=== PATIENT | female | born 1980 | race Two or more races ===

== ENCOUNTER 2024-09-01 09:07 | Outpatient (RCR) | payer MEDICAID, SELFPAY | END 2024-09-16 23:59 | disposition home or self-care (01) | LOC: SCTC 09:07 | PROVIDERS: PCP Obstetrics & Gynecology; Referring Provider Internal Medicine Hematology & Oncology; Visit Provider Internal Medicine Hematology & Oncology | DX: C19 Malignant neoplasm of rectosigmoid junction (principal); J98.4 Other disorders of lung; Z90.49 Acquired absence of other specified parts of digestive tract; K76.89 Other specified diseases of liver ==

== ENCOUNTER 2024-09-08 09:00 | Day surgery (SDC) | payer MEDICAID, SELFPAY ==
--- NOTE | 2024-09-04 07:00 | EKG_ITS ---
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
[2024-09-04 08:39] VITALS: BMI 30.1
[2024-09-04 10:37] LABS: Basophils # (Auto) 0.1 Thou/mm3 (0.0-0.2); Basophils % (Auto) 1 % (0-2.5); Eosinophils # (Auto) 0.2 Thou/mm3 (0.0-0.5); Eosinophils % (Auto) 3 % (0-10); Hematocrit 40.5 % (36.0-46.0); Hemoglobin 13.1 g/dL (12.0-16.0); Immature Granulocytes % (Auto) 0 % (0-0); Immature Granulocytes Auto 0.01 Thou/mm3 (0.00-0.00); Lymphocytes # (Auto) 1.2 Thou/mm3 (1.0-4.8); Lymphocytes % (Auto) 22 % (10-50); Mean Corpuscular HGB Conc 32.3 g/dl (31.0-37.0); Mean Corpuscular Hemoglobin 25.2 pg (25.0-35.0); Mean Corpuscular Volume 78 fL (80-100); Monocytes # (Auto) 0.4 Thou/mm3 (0.0-0.8); Monocytes % (Auto) 7 % (0-12); Neutrophils # (Auto) 3.6 Thou/mm3 (1.8-7.7); Neutrophils % (Auto) 67 % (37-80); Nucleated Red Blood Cell % 0 /100 WBC (0); Platelet Count 275 Thou/mm3 (140-440); RDW Standard Deviation 41.8 fL (36.4-46.3); Red Blood Count 5.19 Miln/mm3 (4.00-5.20); White Blood Count 5.3 Thou/mm3 (3.6-11.0)
[2024-09-04 10:45] LABS: Alanine Aminotransferase 22 U/L (10-49); Albumin/Globulin Ratio 1.7 (1.2-2.2); Alkaline Phosphatase 68 U/L (46-116); Anion Gap 7 (7-16); Aspartate Amino Transferase 19 U/L (0-34); BUN/Creatinine Ratio 19 Ratio (12-20); Bilirubin,Total 0.2 mg/dL (0.3-1.2); Blood Urea Nitrogen 13 mg/dL (9-23); Calcium 10.4 mg/dL (8.3-10.6); Calcium (Corrected) 10.4 mg/dL (8.5-10.1); Carbon Dioxide 27.7 mMol/L (20.0-31.0); Chloride 104 mMol/L (98-107); Creatinine (Component) 0.7 mg/dL (0.6-1.3); Glucose 112 mg/dL (74-106); Osmolality,Calculated 278 (275-295); Partial Thromboplastin Time 24.5 Seconds (22.0-36.0); Potassium 3.8 mMol/L (3.4-5.1); Prothrombin Time 10.6 Seconds (9.0-12.2); Sodium 139 mMol/L (136-145); eGFR > 60 See Note
[2024-09-04 11:05] LABS: HCG Qualitative,Urine Negative
[2024-09-08] VITALS (11 sets, daily range): BP systolic 107–132; BP diastolic 68–83; PULSE 79–93; RESP 13–20; TEMP 36.4–36.7; O2SAT 95–98; BMI 29.9
--- NOTE | 2024-09-08 10:11 | CHAP ---
Patient expressed gratitude for prayer before their procedure.
[2024-09-08] MEDS: RINGERS LACTATED 500 ML 500 ML 20 ML IV (10:22)
--- NOTE | 2024-09-08 12:00 | XR_ITS ---
Examination: AP chest single view Technique one AP portable supine chest single view Exam date and time: September 08, 2024 1225 hours INDICATIONS: Status post Port-A-Cath insertion FINDINGS: Right internal jugular Port-A-Cath tip SVC satisfactory position No pneumothorax Reduced inspiratory effort IMPRESSION: Right internal jugular Port-A-Cath line in satisfactory position
--- NOTE | 2024-09-08 14:22 | SUR.PHASEI ---
pt arrived to PACU via gurney with oral airway present, breathing unlabored, dressing to upper right and upper left chest clean, dry, and intact, report from Elaine LORENZO, Ken SIMMS, and Dr Shay
--- NOTE | 2024-09-08 14:42 | ESOP_ITS ---
Date of Procedure 09/08/24 Pre Op Diagnosis Stricture of veins requiring chemotherapy for metastatic colon cancer Post Op Diagnosis Same Procedure Insertion of a Port-A-Cath using the right jugular vein Findings Patient was found to have difficult subclavian vein access and I could not advance the catheter through the subclavian vein. Therefore it was done through the right jugular vein Procedure Description After the patient was brought to the operating room he was placed in supine position. Site-Rite ultrasound was used to identify the left subclavian vein and I chose this for insertion of the Port-A-Cath. After the patient's chest and neck were prepped with chloreprep solution and draped I used a mini stick to get into the left subclavian vein. Then I passed a small guidewire measuring 0.018 inch in diameter into the vein. Then this was switched over to a catheter to accommodate larger guidewire measuring 0.035 inches in diameter which was basically a J-wire. Then I used a 9 Irish valved vessel dilator over the guidewire which was then pulled out. At this time I could not introduce the dilator which bent awkwardly. The polyurethane catheter would not go into the vein. Therefore I switched to the right jugular vein and used the mini stick and got into the superior vena cava. This was confirmed with an x-ray. Then I introduced a 8 Irish polyurethane catheter from the [employer] and positioned it on the distal part of the superior vena cava. An x-ray was obtained to confirm the position of the tip. Then I made a small pocket 5 cm's below the entry site on the right chest below the clavicle to accommodate the port after injecting local anesthesia with 1% Xylocaine. Then I tunneled the polyurethane catheter from the entry site to this pocket in the chest wall and I connected it to regular sized port from [employer] called profuse using a catheter lock. Excellent blood return was obtained at the end of the procedure and this was flushed with heparinized saline. Then the port was attached to the chest wall muscle using 0 Vicryl sutures. Final x-ray showed satisfactory position of the catheter and port. Subcutaneous tissues was closed with 3-0 chromic and the skin by 5-0 nylon stitches. Dressing was applied with Adaptic and 4 x 4 and the patient tolerated the procedure well and left operating room in stable condition. Anesthesia GETA and other (General LMA) Pathology / specimen None Estimated Blood Loss 30 Surgeon Reema Lao MD Surgical Staff Operation Date: 09/08/24 11:45 Case Staff Anesthesiologist: Sesar Shay RN First Assistant: Shabnam Cuello
--- NOTE | 2024-09-08 15:05 | SUR.PHASEII ---
1505 Report received from Audrey Peters RN
--- NOTE | 2024-09-08 15:05 | SUR.PHASEII ---
report to Audrey Crain RN
--- NOTE | 2024-09-08 15:30 | SUR.PHASEII ---
1530 called patient son to notify patient ready for discharge, he stated he was at home and would arrive soon 1600 patient son arrived at hospital with proceed with discharge instructions.
--- NOTE | 2024-09-08 16:28 | SUR.PHASEII ---
1628 Patient meets discharge criteria from recovery, awake and alert, breathing unlabored, vital signs stable, denies pain, states It's painful only when I moved , dressing intact; no bleeding noted, patient ate two jellos and drinking 7up, denies nausea, patient assisted with dressing into her clothing by this jingle writer and her son, discharge instructions given to patient and her son with the assistance of the telephone blow up operator Penny ID#[id number], son signed discharge instructions. Patient given all her belongings prior to discharge, transported via wheelchair and left in a private vehicle.
== END 2024-09-08 16:28 | disposition home or self-care (01) ==
PROVIDERS: Anesthesiology; PCP Obstetrics & Gynecology; Referring Provider Surgery; Visit Provider Surgery
PROC: (CPT 36561; principal; 2024-09-08 11:30)
PROC: (CPT 44320; 2024-09-08 11:30)
DX: I87.1 Compression of vein (principal); C18.9 Malignant neoplasm of colon, unspecified; C78.7 Secondary malignant neoplasm of liver and intrahepatic bile duct; Z01.810 Encounter for preprocedural cardiovascular examination
CPT/HCPCS: 36561; 36415; 71046; 80053; 81025; 85025; 85610; 85730; 93005; A4649; C1788; C1894; J0131; J1643; J2250; J2371; J2704; J3010; J3490; J7120; J1644

== ENCOUNTER 2024-10-03 16:25 | Emergency (ER) | payer MEDICAID, SELFPAY ==
[2024-10-03 16:26] VITALS: BMI 30.7
[2024-10-03 16:51] VITALS: BP 117/78; PULSE 110; RESP 18; TEMP 37.8; O2SAT 97
--- NOTE | 2024-10-03 17:00 | PD.EDRME ---
Rapid Medical Screening Exam RME Arrival date/time: 10/03/24 16:25 44-year-old female presents emergency department today with complaints of sore throat and foreign body sensation in throat ongoing for last couple of hours patient currently on chemotherapy patient has low-grade temperature 100.0 Chief Complaint: Allergic Reaction Time Seen by Provider: 10/03/24 16:39 Vital signs: Vital Signs Temperature 100.0 F 10/03/24 16:51 Pulse Rate 110 H 10/03/24 16:51 Respiratory Rate 18 10/03/24 16:51 Blood Pressure 117/78 10/03/24 16:51 Pulse Oximetry (%) 97 10/03/24 16:51 Oxygen Delivery Method Room Air 10/03/24 16:51
--- NOTE | 2024-10-03 17:01 | XR_ITS ---
Examination: PA lateral chest 2 views Technique: Upright PA lateral chest 2 views Exam date and time: October 03, 2024 1714 hrs. Comparison September 08, 2024, PET CT scan July 06, 2024 Indications: Chest tightness today. Findings: Normal heart size 23 mm pulmonary nodule right upper lobe,, 12 mm pulmonary nodule right lower lobe, pulmonary nodules smaller in the left upper lobe, please see the PET/CT scan report No pneumonia or pulmonary edema Impression: Pulmonary nodular metastatic disease, please see the PET/CT scan July 06, 2024 No interval pneumonia or pulmonary edema
[2024-10-03 17:46] LABS: Strep A Rapid Negative (Negative)
[2024-10-03 17:54] LABS: Lactate (Lactic Acid) 2.9 mMol/L (0.4-2.0)
[2024-10-03 17:59] LABS: Basophils % (Auto) 0 % (0-2.5); Eosinophils % (Auto) 0 % (0-10); Hematocrit 39.4 % (36.0-46.0); Hemoglobin 12.7 g/dL (12.0-16.0); Immature Granulocytes % (Auto) 1 % (0-0); Immature Granulocytes Auto 0.03 Thou/mm3 (0.00-0.00); Lymphocytes # (Auto) 0.5 Thou/mm3 (1.0-4.8); Lymphocytes % (Auto) 9 % (10-50); Mean Corpuscular HGB Conc 32.2 g/dl (31.0-37.0); Mean Corpuscular Hemoglobin 24.8 pg (25.0-35.0); Mean Corpuscular Volume 77 fL (80-100); Monocytes # (Auto) 0.1 Thou/mm3 (0.0-0.8); Monocytes % (Auto) 2 % (0-12); Neutrophils # (Auto) 5.3 Thou/mm3 (1.8-7.7); Neutrophils % (Auto) 89 % (37-80); Nucleated Red Blood Cell % 0 /100 WBC (0); Platelet Count 253 Thou/mm3 (140-440); RDW Standard Deviation 41.4 fL (36.4-46.3); Red Blood Count 5.12 Miln/mm3 (4.00-5.20)
[2024-10-03 18:06] LABS: Collection Type, Urine Clean Catch
[2024-10-03 18:21] LABS: Bilirubin,Urine Negative (Negative); Blood,Urine Trace (Negative); Clarity,Urine Clear (Clear/Hazy); Color,Urine Colorless (Lt Yel-Yel); Glucose, Urine 3+ (Negative); Ketones,Urine Negative (Negative); Leukocyte Esterase,Urine Negative (Negative); Nitrite,Urine Negative (Negative); Protein,Urine Negative (Neg - Trace); RBC,Urine 1 /hpf (0-3); Specific Gravity,Urine 1.006 (1.001-1.035); Squamous Epithelial Cell,Urine 1 /hpf (0-5); Urobilinogen,Urine Negative mg/dL (0.0-1.0); WBC,Urine 1 /hpf (0-5)
[2024-10-03 18:31] LABS: Alanine Aminotransferase 26 U/L (10-49); Albumin, Serum 5.4 gm/dL (3.5-5.0); Albumin/Globulin Ratio 1.7 (1.2-2.2); Alkaline Phosphatase 99 U/L (46-116); Anion Gap 11 (7-16); Aspartate Amino Transferase 11 U/L (0-34); BUN/Creatinine Ratio 19 Ratio (12-20); Bilirubin,Total 0.3 mg/dL (0.3-1.2); Blood Urea Nitrogen 13 mg/dL (9-23); Calcium 10.3 mg/dL (8.3-10.6); Calcium (Corrected) 10.3 mg/dL (8.5-10.1); Carbon Dioxide 24.3 mMol/L (20.0-31.0); Chloride 101 mMol/L (98-107); Creatinine (Component) 0.7 mg/dL (0.6-1.3); Estimated Creatinine Clearance 107.9 mL/min (>60); Globulin 3.1 gm/dL (2.3-3.5); Glucose 215 mg/dL (74-106); Osmolality,Calculated 278 (275-295); Potassium 3.5 mMol/L (3.4-5.1); Sodium 136 mMol/L (136-145); Total Protein 8.5 gm/dL (5.7-8.2); eGFR > 60 See Note
[2024-10-03 18:35] LABS: Procalcitonin < 0.04 ng/ml (0.0-0.49)
[2024-10-03 19:45] VITALS: BP 111/74; PULSE 107; RESP 18; TEMP 36.9; O2SAT 97
[2024-10-03 20:10] VITALS: BP 123/80; PULSE 99; RESP 14; TEMP 37; O2SAT 98
[2024-10-03 20:51] LABS: Reflex Lactate? Y
[2024-10-03 21:16] LABS: Lactic Acid, 3 HR 2.4 mMol/L (0.4-2.0)
[2024-10-03 21:42] VITALS: BP 107/69; PULSE 98; RESP 20; O2SAT 99
--- NOTE | 2024-10-03 21:48 | PD.EDADULT ---
ED General RME/HPI General Chief complaint: Allergic Reaction Stated complaint: CHEMO TODAY NOW DIFF SWALLOWING Time Seen by Provider: 10/03/24 16:39 Arrival date/time: 10/03/24 16:25 CC: Foreign body sensation with swallowing after taking tablet HPI onset approximately 4 to 5 hours ago per the patient is a unable to swallow her own saliva and tolerates oral fluids. The patient not in any acute distress please note the patient recently started chemotherapy through a temporary anterior chest port for colon cancer with metastasis to the liver per the patient. Patient is a diabetic. Patient denies chest pain shortness of breath difficulty breathing or fever. RME / HPI RME / HPI narrative: 10/03/24 16:25 44-year-old female presents emergency department today with complaints of sore throat and foreign body sensation in throat ongoing for last couple of hours patient currently on chemotherapy patient has low-grade temperature 100.0 Related Data Home Medications ?Medication ?Instructions ?Recorded ?Confirmed metformin 500 mg tablet 500 mg PO BID 06/15/24 09/06/24 Allergies Allergy/AdvReac Type Severity Reaction Status Date / Time morphine Allergy Severe Anxiety Verified 10/03/24 16:31 prochlorperazine Allergy Severe ANXITEY Verified 10/03/24 16:31 Review of Systems Review of Systems Narrative Review of Systems: GEN: No fever, no chills, no weight loss EYES: No discharge, no visual changes, no pain HEENT: No ear pain, no congestion, no sore throat PULM: No shortness of breath, no cough, no congestion CV: No chest pain, no dyspnea on exertion, no palpitations GI: No nausea, no vomiting, no diarrhea, no pain, no constipation : No frequency, no urgency, no dysuria MUSC/SKEL: No joint pain, no back pain SKIN: No rash PSYCH: No hallucinations, no depression HEME/LYMPH: No easy bleeding or bruising tendencies NEURO: No weakness, no headache Past Medical History Past Medical History NEUROLOGIC: Positive Neurological Disorders and Seizures (x1 in 2003 with spinal after ); Negative Cerebrovascular Accident, Transient Ischemic Attacks (TIA), Dementia, Alzheimer's Disease, Parkinson's Disease, Brain Tumor, Meningitis, Epilepsy, Multiple Sclerosis, Cerebral Palsy, Amyotrophic Lateral Sclerosis (ALS/Cora Gehrig's), Guillain-[place] Syndrome, Spina Bifida, Paralysis, Peripheral Neuropathy, Akbar's Palsy, Subdural Hematoma, Migraine, Head Trauma, Spinal Cord Injury or Traumatic Brain Injury CARDIAC: Positive Cardiac Disorders and Varicose Veins; Negative Myocardial Infarction, Cardiac Arrhythmia, Atrial Fibrillation, Angina, Heart Murmur, Coronary Artery Disease, Atherosclerotic Heart Disease, Peripheral Vascular Disease, Hypercholesterolemia, Aneurysm, Congestive Heart Failure, Congenital Heart Disease, Valvular Heart Disease, Rheumatic Fever, Cardiomyopathy, Edema, Pericarditis, Cellulitis, Deep Vein Thrombosis, Hypertension or Hypotension RESPIRATORY: Negative Chronic Obstructive Pulmonary Disease (COPD), Asthma, Bronchitis, Emphysema, Pneumonia, Pulmonary Fibrosis, Cystic Fibrosis, Tuberculosis, Pulmonary Embolism, Pulmonary Edema or Sleep Apnea GASTROINTESTINAL: Positive Gastrointestinal Disorders (having a liver biopsy Wednesday) and Colorectal Cancer; Negative Hepatitis, Cirrhosis, Pancreatitis, Celiac Disease, Gall Bladder Disease, Gastrointestinal Bleed, Esophageal Varices, Evans's Esophagus, Colitis, Ulcerative Colitis, Diverticulitis, Diverticulosis, Ulcer, Irritable Bowel, Crohn's Disease, Obstructive Bowel, Hiatal Hernia, Hemorrhoids, Gastroesophageal Reflux Disease or Obesity GENITOURINARY: Negative Genitourinary Disorders, Renal Disease, Kidney Stones, Polycystic Kidney Disease, Neurogenic Bladder, Inguinal Hernia, Dialysis, Prostate Cancer or Benign Prostatic Hyperplasia REPRODUCTIVE: Positive Previous Pregnancies; Negative Breast Cancer, Endometriosis, Genital Herpes, Gonorrhea, Pelvic Inflammatory Disease, Syphilis, Testicular Cancer or Uterine Prolapse MUSCULOSKELETAL: Negative Musculoskeletal Disorders, Muscular Dystrophy, Myasthenia Gravis, Marfan's Syndrome, Bone Cancer, Arthritis, Rheumatoid Arthritis, Osteoporosis, Degenerative Disk Disease, Gout, Scoliosis, Carpal Tunnel Syndrome, Fibromyalgia, Fractures, Degenerative Joint Disease, Osteomyelitis or Poliovirus ENT: Negative Cataracts, Glaucoma, Blind, Retinal Detachment, Macular Degeneration, Ear Infection, Deafness, Head Trauma or Eye Prosthesis ENDOCRINE: Positive Endocrine Disorders and Diabetes Mellitus Type 2; Negative Diabetes Mellitus Type 1, Hypoglycemia, Tyro's Syndrome, Misha's Disease, Hyperthyroidism, Hypothyroidism, Parathyroid Disease, Pituitary Disease, Systemic Lupus Erythematosus, Syndrome of Inappropriate Antidiuretic Hormone (SIADH), Adrenal Disease or Graves' Disease HEMATOLOGIC: Positive Anemia; Negative Blood Disorders, Leukemia, Hemophilia, Thalassemia, Sickle Cell Disease or Clotting Problems PSYCHO/SOCIAL: Positive Depression (no meds) and Anxiety; Negative Psychiatric Problems, Schizophrenia, Recreational Drug Use, Bipolar Disorder, Behavior Problems, Self-Mutilation, Attention Deficit Disorder, Attention Deficit Hyperactivity Disorder, Depression, Post Traumatic Stress Disorder or Eating Disorder OTHER HISTORY: Positive Hospitalization (stomach issues), Anesthesia Reactions (had a seizure after spinal), Chemotherapy (COLON CANCER 2023), Radiation Therapy (COLON CANCER 2023), Chicken Pox, Measles, Mumps, Cancer and Colorectal Cancer; Negative Autoimmune Disease, Down Syndrome, Autism, Developmental Delay, Shingles, Falls, Blood Transfusions, Blood Transfusion Reaction, Organ Transplant, Hyperbaric Therapy, MRSA, VRSA, Vancomycin-Resistant Enterococci, Human Immunodeficiency Virus (HIV), Rubella ([place] Measles), Pertussis, Clostridium Difficile, Breast Cancer, Cervical Cancer, Lung Cancer (TO BE DETERMINED WITH BIOPSY), Ovarian Cancer, Prostate Cancer or Testicular Cancer Family History FAMILY HISTORY: Positive Family Cardiac Disorders (SISTER CABG), Family Gastrointestinal Problems (MOM COLON CANCER) and Family Cancer; Negative Family Psychiatric Problems, Family Respiratory Disorders, Family Surgery or Family Anesthesia Reaction Surgical History SURGICAL: Positive Abdominal Surgery, Bowel Surgery (colon resection with colostomy) and Section (X3); Negative Cardiac Surgery, Open Heart Surgery, Coronary Artery Bypass Graft, Valve Replacement, Vascular Surgery, Coronary Stent, Cardiac Catheterization, Pacemaker, Angiogram, Auto Implanted Cardiovert Defib, Carotid Endarterectomy, Endocrine Surgery, Thyroidectomy, Ear Surgery, Tympanostomy Tube, Eye Surgery, Nose Surgery, Oral Surgery, Tonsillectomy, Adenoidectomy, Cochlear Implant, Corneal Transplant, Throat Surgery, Tracheostomy, Gastric Bypass Surgery, Gastrostomy, Nephrectomy, Transurethral Resection, Joint Replacement, Amputation, Open Reduction Internal Fixation, Arthroscopy, Neurologic Surgery, Brain Shunt, Mastectomy, Lumpectomy, Hysterectomy, Tubal Ligation, Vasectomy or Organ Transplant Social History SMOKING STATUS: Never smoker SECOND HAND EXPOSURE: No ED Exam Narrative Physical exam: [General: Obese not in any acute distress Head normocephalic HEENT: Within acceptable limits Neck is supple nontender, no stridor, no JVD no edema. Normal phonation swallow symmetrical Chest equal chest rise nontender to palpation Respiratory: Clear to auscultation no wheezes crackles or rubs CV: Rate rhythm is regular no murmurs rubs or clicks Abdomen is distended secondary to body habitus soft nontender no masses positive bowel sounds all 4 quadrants Back: No CVA tenderness no spinous process tenderness from cervical spine thoracic and lumbar spine Skin: Intact no petechiae rash induration ulceration or crepitus Extremities: Moving all extremity against resistance cap refill less than 2 seconds neurosensory intact Neuro: Awake alert oriented x3 Glascow coma 15 no focal deficits] Course Course Course Narrative: Patient able to tolerate water both and sips and then gulps and is now tolerating food. Quality Measures VTE prophylaxis Orders Category Date Time Status Bedside COVID-19 Antigen Test NOW Care 10/03/24 17:01 Active Bedside Influenza A&B Antigen Test NOW Care 10/03/24 17:01 Completed EKG (ED ONLY) *Do not use* NOW Care 10/03/24 18:32 Completed EKG (ED Only) Stat Exams 10/03/24 18:32 Ordered XR chest 2V Stat Exams 10/03/24 17:01 Completed Blood Culture (Lab) Stat Lab 10/03/24 17:25 Received CBC Stat Lab 10/03/24 17:30 Completed Comprehensive Metabolic Panel Stat Lab 10/03/24 17:30 Completed Lactate (Lactic Acid) Stat Lab 10/03/24 17:30 Completed Lactic Acid, 3 HR Stat Lab 10/03/24 21:11 Completed Procalcitonin Stat Lab 10/03/24 17:30 Completed Strep A Rapid Stat Lab 10/03/24 17:29 Completed Urinalysis Stat Lab 10/03/24 17:55 Completed Urine Culture Stat Lab 10/03/24 17:55 Received Vital Signs Vital signs: Vital Signs Temperature 100.0 F 10/03/24 16:51 Pulse Rate 110 H 10/03/24 16:51 Respiratory Rate 18 10/03/24 16:51 Blood Pressure 117/78 10/03/24 16:51 Pulse Oximetry (%) 97 10/03/24 16:51 Oxygen Delivery Method Room Air 10/03/24 16:51 [facility] Patient data External records reviewed:: [facility] previous records Clinical information provided by:: patient Social determinants that could affect healthcare access:: none Patient has the following chronic illnesses:: Recently diagnosed colon cancer chemotherapy x 2 How is presenting disease/condition affected by chronic disease/condition?: uneffected by Evaluation data The following diagnostics were reviewed and interpreted by me:: lab results and radiology exam(s) Lab and/or radiology exams considered but not ordered:: CBC shows no acute leukocytosis anemia thrombocytopenia CMP shows mildly elevated glucose no other electrolyte imbalances renal impairment transaminitis or T. bili elevation EKG performed at 2139 shows a ventricular rate of 77 MT interval 135 QRS of 94 QTc of 421 this is sinus rhythm nonspecific ST segment changes. Initial lactic is 2.9 reflex lactic of 2.4 this was drawn before the patient was brought back to the emergency room bed. The patient's procalcitonin is negative. Urine is negative for any UTI. Interpretation Summary: Patient is tolerating foods without any complication at this time comfortable discharging the patient home lactic acid I think is metabolic as it is decreased without any specific intervention and the procalcitonin is normal. Patient has no shortness of breath difficulty breathing nausea vomiting vital signs are stable. Patient is a mildly elevated glucose level. Medications Medications considered but not ordered:: None Medication administrations:: None Consultations Consultation(s) initiated? (list below): No Diagnosis Differential Diagnosis ED Complaint MDM: Esophageal foreign body, sepsis, infection Most likely diagnosis given after review of the tests above:: Esophageal foreign body sensation Admission Indicated Admission indicated?: not indicated Explain why admission is indicated or not indicated:: Stable for outpatient follow-up Admission Request Was there a request for admission?: No Disposition Plan Disposition Plan: Discharge Discharge Attestation Discharge Attestation: The patient and all family members were given an opportunity to ask questions and understood the discharge instructions. Discharge instructions specifically effects, indications for sooner follow up or return to the emergency department, and the expected course of current diagnosis. Patient condition: Stable Medical Decision Making Differential Diagnosis Differential Diagnosis: Esophageal foreign body, sepsis, infection Lab Data 10/03/24 17:30 10/03/24 17:30 Labs: Lab Results 10/03/24 10/03/24 10/03/24 Range/Units 17:29 17:30 17:55 WBC 6.0 (3.6-11.0) Thou/mm3 RBC 5.12 (4.00-5.20) Miln/mm3 Hgb 12.7 (12.0-16.0) g/dL Hct 39.4 (36.0-46.0) % MCV 77 L (80-100) fL MCH 24.8 L (25.0-35.0) pg MCHC 32.2 (31.0-37.0) g/dl RDW Std Deviation 41.4 (36.4-46.3) fL Plt Count 253 (140-440) Thou/mm3 Neut % (Auto) 89 H (37-80) % Lymph % (Auto) 9 L (10-50) % [place] % (Auto) 2 (0-12) % Eos % (Auto) 0 (0-10) % Baso % (Auto) 0 (0-2.5) % Neut # (Auto) 5.3 (1.8-7.7) Thou/mm3 Lymph # (Auto) 0.5 L (1.0-4.8) Thou/mm3 [place] # (Auto) 0.1 (0.0-0.8) Thou/mm3 Eos # (Auto) 0.0 (0.0-0.5) Thou/mm3 Baso # (Auto) 0.0 (0.0-0.2) Thou/mm3 Immature Gran # (Auto) 0.03 H (0.00-0.00) Thou/mm3 Absolute Nucleated RBC 0.00 (0.00-0.00) Thou/mm3 Immature Gran % 1 H (0-0) % Nucleated RBC % 0 (0) /100 WBC Sodium 136 (136-145) mMol/L Potassium 3.5 (3.4-5.1) mMol/L Chloride 101 (98-107) mMol/L Carbon Dioxide 24.3 (20.0-31.0) mMol/L Anion Gap 11 (7-16) BUN 13 (9-23) mg/dL Creatinine 0.7 (0.6-1.3) mg/dL Estim Creat Clear Calc 107.9 (>60) mL/min eGFR > 60 (60 - ) See Note BUN/Creatinine Ratio 19 (12-20) Ratio Glucose 215 H D (74-106) mg/dL Calculated Osmolality 278 (275-295) Lactic Acid 2.9 H (0.4-2.0) mMol/L Calcium 10.3 (8.3-10.6) mg/dL Corrected Calcium 10.3 H (8.5-10.1) mg/dL Total Bilirubin 0.3 (0.3-1.2) mg/dL AST 11 (0-34) U/L ALT 26 (10-49) U/L Alkaline Phosphatase 99 (46-116) U/L Total Protein 8.5 H (5.7-8.2) gm/dL Albumin 5.4 H D (3.5-5.0) gm/dL Globulin 3.1 (2.3-3.5) gm/dL Albumin/Globulin Ratio 1.7 (1.2-2.2) Procalcitonin < 0.04 (0.0-0.49) ng/ml Ur Collection Type Clean Catch Urine Color Colorless A (Lt Yel-Yel) Urine Clarity Clear (Clear/Hazy) Urine pH 5.0 (5.0-7.0) Ur Specific [place] 1.006 (1.001-1.035) Urine Protein Negative (Neg - Trace) Urine Glucose (UA) 3+ A (Negative) Urine Ketones Negative (Negative) Urine Blood Trace (Negative) Urine Nitrite Negative (Negative) Urine Bilirubin Negative (Negative) Urine Urobilinogen (Auto) Negative (0.0-1.0) mg/dL Ur Leukocyte Esterase Negative (Negative) Urine RBC 1 (0-3) /hpf Urine WBC 1 (0-5) /hpf Ur Squamous Epith Cells 1 (0-5) /hpf Urine Bacteria None (None) Group A Strep Rapid Negative (Negative) 10/03/24 Range/Units 21:11 WBC (3.6-11.0) Thou/mm3 RBC (4.00-5.20) Miln/mm3 Hgb (12.0-16.0) g/dL Hct (36.0-46.0) % MCV (80-100) fL MCH (25.0-35.0) pg MCHC (31.0-37.0) g/dl RDW Std Deviation (36.4-46.3) fL Plt Count (140-440) Thou/mm3 Neut % (Auto) (37-80) % Lymph % (Auto) (10-50) % [place] % (Auto) (0-12) % Eos % (Auto) (0-10) % Baso % (Auto) (0-2.5) % Neut # (Auto) (1.8-7.7) Thou/mm3 Lymph # (Auto) (1.0-4.8) Thou/mm3 [place] # (Auto) (0.0-0.8) Thou/mm3 Eos # (Auto) (0.0-0.5) Thou/mm3 Baso # (Auto) (0.0-0.2) Thou/mm3 Immature Gran # (Auto) (0.00-0.00) Thou/mm3 Absolute Nucleated RBC (0.00-0.00) Thou/mm3 Immature Gran % (0-0) % Nucleated RBC % (0) /100 WBC Sodium (136-145) mMol/L Potassium (3.4-5.1) mMol/L Chloride (98-107) mMol/L Carbon Dioxide (20.0-31.0) mMol/L Anion Gap (7-16) BUN (9-23) mg/dL Creatinine (0.6-1.3) mg/dL Estim Creat Clear Calc (>60) mL/min eGFR (60 - ) See Note BUN/Creatinine Ratio (12-20) Ratio Glucose (74-106) mg/dL Calculated Osmolality (275-295) Lactic Acid 2.4 H (0.4-2.0) mMol/L Calcium (8.3-10.6) mg/dL Corrected Calcium (8.5-10.1) mg/dL Total Bilirubin (0.3-1.2) mg/dL AST (0-34) U/L ALT (10-49) U/L Alkaline Phosphatase (46-116) U/L Total Protein (5.7-8.2) gm/dL Albumin (3.5-5.0) gm/dL Globulin (2.3-3.5) gm/dL Albumin/Globulin Ratio (1.2-2.2) Procalcitonin (0.0-0.49) ng/ml Ur Collection Type Urine Color (Lt Yel-Yel) Urine Clarity (Clear/Hazy) Urine pH (5.0-7.0) Ur Specific [place] (1.001-1.035) Urine Protein (Neg - Trace) Urine Glucose (UA) (Negative) Urine Ketones (Negative) Urine Blood (Negative) Urine Nitrite (Negative) Urine Bilirubin (Negative) Urine Urobilinogen (Auto) (0.0-1.0) mg/dL Ur Leukocyte Esterase (Negative) Urine RBC (0-3) /hpf Urine WBC (0-5) /hpf Ur Squamous Epith Cells (0-5) /hpf Urine Bacteria (None) Group A Strep Rapid (Negative) Discharge Plan Plan Patient Disposition: HOME (Self Care) Prescriptions/Referrals Prescriptions/Med Rec: No Action metformin 500 mg Tablet 500 mg PO BID Referrals: Ron Moreno MD [Primary Care Provider] - In 1 week Problem List Clinical Impression: Sensation of foreign body in esophagus Patient/Caregiver Discharge Instructions Print Language: Greenlandic Stand Alone Forms: Cherrie Award Info., Patient Portal Info Letter, Work/School Release PA/EXECUTIVE STAFF ASSISTANT Supervising Physician PA/EXECUTIVE STAFF ASSISTANT Supervising Physician: Osmany Mora ENP
[2024-10-03 21:59] VITALS: BP 113/74; PULSE 92; RESP 17; TEMP 36.9; O2SAT 98
[2024-10-03 22:24] VITALS: BP 141/61; PULSE 112; RESP 16; O2SAT 95
== END 2024-10-03 22:25 | disposition home or self-care (01) ==
PROVIDERS: Nurse Practitioner Primary Care; Emergency Provider Emergency Medicine; PCP Obstetrics & Gynecology
DX: R19.8 Other specified symptoms and signs involving the digestive system and abdomen (principal); R07.89 Other chest pain; R00.0 Tachycardia, unspecified
CPT/HCPCS: 36415; 71046; 80053; 81001; 83605; 84145; 85025; 87040; 87086; 87400; 87651; 87811; 93005; 99283

== ENCOUNTER 2024-10-05 10:24 | Outpatient (RCR) | payer MEDICAID, SELFPAY ==
[2024-09-18 16:33] LABS: Basophils % (Auto) 1 % (0-2.5); Eosinophils # (Auto) 0.1 Thou/mm3 (0.0-0.5); Eosinophils % (Auto) 2 % (0-10); Hematocrit 37.3 % (36.0-46.0); Hemoglobin 12.2 g/dL (12.0-16.0); Immature Granulocytes % (Auto) 0 % (0-0); Immature Granulocytes Auto 0.01 Thou/mm3 (0.00-0.00); Lymphocytes # (Auto) 1.3 Thou/mm3 (1.0-4.8); Lymphocytes % (Auto) 21 % (10-50); Mean Corpuscular HGB Conc 32.7 g/dl (31.0-37.0); Mean Corpuscular Hemoglobin 25.4 pg (25.0-35.0); Mean Corpuscular Volume 78 fL (80-100); Monocytes # (Auto) 0.5 Thou/mm3 (0.0-0.8); Monocytes % (Auto) 9 % (0-12); Neutrophils % (Auto) 67 % (37-80); Nucleated Red Blood Cell % 0 /100 WBC (0); Platelet Count 285 Thou/mm3 (140-440); RDW Standard Deviation 42.2 fL (36.4-46.3)
[2024-09-18 16:55] LABS: HCG,Qualitative Serum Negative
[2024-09-18 16:58] LABS: Alanine Aminotransferase 19 U/L (10-49); Albumin, Serum 4.9 gm/dL (3.5-5.0); Albumin/Globulin Ratio 1.8 (1.2-2.2); Alkaline Phosphatase 64 U/L (46-116); Anion Gap 10 (7-16); Aspartate Amino Transferase 13 U/L (0-34); BUN/Creatinine Ratio 18 Ratio (12-20); Bilirubin,Total 0.3 mg/dL (0.3-1.2); Blood Urea Nitrogen 11 mg/dL (9-23); Calcium 10.2 mg/dL (8.3-10.6); Calcium (Corrected) 10.2 mg/dL (8.5-10.1); Carbon Dioxide 26.4 mMol/L (20.0-31.0); Chloride 100 mMol/L (98-107); Creatinine (Component) 0.6 mg/dL (0.6-1.3); Globulin 2.7 gm/dL (2.3-3.5); Glucose 96 mg/dL (74-106); Osmolality,Calculated 271 (275-295); Potassium 3.7 mMol/L (3.4-5.1); Sodium 136 mMol/L (136-145); Total Protein 7.6 gm/dL (5.7-8.2); eGFR > 60 See Note
--- NOTE | 2024-09-28 13:19 | CTCFLWUP_ITS ---
Patient: ALDO LIU : 1980 Page 2 of 2 FOLLOW UP NOTE DATE OF SERVICE: 09/28/2024 NAME: ALDO LIU ACCOUNT: [id number] : 1980 AGE: 43 REASON FOR VISIT: Patient is here for follow-up on her chemotherapy. Patient has completed cycle one of her chemothera py and doing well. Patient do not have any new complaints from treatment. She do not have any nause a vomiting or appetite changes. History of presenting illness Aldo Liu is a 44-year-old SPA speaking female with history of type 2 diabetes cu rrently on metformin without any secondary sequelae has the following oncology history. 11/02/2023: Ms. Liu had colonoscopy done for recurrent rectal bleeding, rectal pain and rec urrent diarrhea. 11/18/2023: CT scan of the chest abdomen with contrast was obtained 11/29/2023: CEA 7.8 12/24/2023: Ms. Liu had VistaSeq Dickinson Syndrome panel. 01/06/2024:: Due to pelvic pain, bleeding, obstructive symptoms Dr. Drake has decided to treat Ms. Leah larson with chemoradiation using Xeloda as a radiosensitizing agent. As per the notes chemo could not be started. 01/24/2024 - 02/25/2024: Ms. Liu has received 5000 cGy of radiation therapy to the pelvis und er Dr. Drake's supervision. 02/03/2024: PET/CT scan back 03/23/2024: CT scan of the chest without IV contrast 04/24/2024: Ms. Liu had resection of the distal sigmoid colon and sigmoid colostomy. At the time of surgery she was found to have a complete obstruction resulting large bowel obstruction. 06/21/2024: CT-guided percutaneous biopsy of the pulmonary nodule anterior segment right upper lobe PAST MEDICAL HISTORY: Adenocarcinoma rectosigmoid - dx 11/03/23 ONCOLOGY HISTORY: DIAGNOSIS: Most likely stage IV (pT2, pN 0, MX) adenocarcinoma of the sigmoid colon with multiple pulmonary lesi ons. MMR proficient. Dickinson syndrome panel testing negative S/p radiation therapy to the pelvis due to obstructive symptoms as well as bleeding (01/24/2024 - 2023) Status post sigmoid colectomy and colostomy bag placement on 04/24/2024. Mother had colon cancer in her 70s. 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 ZOFRAN ODT - 8 mg 1 tab As directed Medications Last Reconciled by Aldo Martinez MA on 09/28/2024 ALLERGIES: Compazine; Compazine; morphine REVIEW OF SYSTEMS: A complete 14-point review of systems was performed and is negative except as noted in interval histo ry. PHYSICAL EXAMINATION: VITAL SIGNS: Temperature?98, B/P?125/81, Oxygen?Saturation?100% Weight?178?lbs (Change?since?09/21/24: ?-3.6?lbs) PAIN: 0 - No pain EYE: Conjunctivae is pink. MOUTH: Oral cavity is dry. CHEST: Clear to auscultation. No wheezes or rales audible. CARDIAC: Rhythm regular, no murmurs or gallops present. ABDOMEN: Soft. No hepatomegaly. No splenomegaly. Colostomy bag in place functioning well EXTREMITIES: No pedal edema or cyanosis. LABORATORY DATA: I have personally reviewed and interpreted each of the patient?s relevant lab tests, abnormal finding s are below: Date 09/18/24 ??WHITE?BLOOD?COUNT?(Thou/mm3) 6.0 ??RED?BLOOD?COUNT?(Miln/mm3) 4.80 ??HEMOGLOBIN?(gm/dl) 12.2 ??HEMATOCRIT?(%) 37.3 ??PLATELET?COUNT?(Thou/mm3) 285 ??NEUTROPHILS?%,?AUTO?(%) 67 ??LYMPH?%,?AUTO?(%) 21 ??NEUTROPHILS,?AUTO?(Thou/mm3) 4.0 IMPRESSION/PLAN: Stage IV T2 N0 M1 adenocarcinoma of the sigmoid colon with multiple pulmonary nodules biopsy negative and liver lesion biopsy positive MMR proficient Dickinson syndrome negative S/p radiation to the pelvis due to obstructive symptom as well as bleeding from 01/24/2024 to 02/25/2024 Status post sigmoid colectomy and colostomy bag placement on 04/24/2024 Liver lesion was positive for colon cancer Patient is on chemotherapy with FOLFOX Completed cycle 1 Tolerating well CEA is 21 CBC CMP CEA PET CT scan to see response to treatment RETURN TO CLINIC: In 4 weeks BILLING AND COMPLIANCE: I reviewed external records from providers outside my specialty as summarized above. I spent a total of 50 minutes on this patient?s care on the day of their visit excluding time spent related to any bi lled procedures. This time includes time spent with the patient as well as time spent documenting in the medical record, reviewing patients records and tests, obtaining history, placing orders, communi cating with other healthcare professionals, counseling the patient, family or caregiver, and/or care coordination for the diagnoses above. Electronically Signed by: Helder Rodrigues MD T: 1:17 PM CC: PCP: Ron Moreno Referring: Ron Moreno This document was completed utilizing speech recognition software. Grammatical errors, random word in sertions, pronoun errors, and incomplete sentences are an occasional consequence of this system due t o software limitations, ambient noise, and hardware issues. Any formal questions or concerns about th e content, text or information contained within the body of this dictation should be directly address ed to the provider for clarification.
[2024-10-02 10:54] LABS: Basophils % (Auto) 0 % (0-2.5); Eosinophils # (Auto) 0.1 Thou/mm3 (0.0-0.5); Eosinophils % (Auto) 2 % (0-10); Hematocrit 37.3 % (36.0-46.0); Immature Granulocytes % (Auto) 0 % (0-0); Immature Granulocytes Auto 0.01 Thou/mm3 (0.00-0.00); Lymphocytes # (Auto) 1.1 Thou/mm3 (1.0-4.8); Lymphocytes % (Auto) 18 % (10-50); Mean Corpuscular HGB Conc 32.2 g/dl (31.0-37.0); Mean Corpuscular Hemoglobin 24.8 pg (25.0-35.0); Mean Corpuscular Volume 77 fL (80-100); Monocytes # (Auto) 0.6 Thou/mm3 (0.0-0.8); Monocytes % (Auto) 10 % (0-12); Neutrophils # (Auto) 4.2 Thou/mm3 (1.8-7.7); Neutrophils % (Auto) 70 % (37-80); Nucleated Red Blood Cell % 0 /100 WBC (0); Platelet Count 252 Thou/mm3 (140-440); RDW Standard Deviation 41.5 fL (36.4-46.3); Red Blood Count 4.83 Miln/mm3 (4.00-5.20)
[2024-10-02 11:10] LABS: Alanine Aminotransferase 23 U/L (10-49); Albumin, Serum 4.7 gm/dL (3.5-5.0); Albumin/Globulin Ratio 1.7 (1.2-2.2); Alkaline Phosphatase 84 U/L (46-116); Anion Gap 10 (7-16); Aspartate Amino Transferase 18 U/L (0-34); BUN/Creatinine Ratio 23 Ratio (12-20); Bilirubin,Total 0.3 mg/dL (0.3-1.2); Blood Urea Nitrogen 14 mg/dL (9-23); Calcium 10.4 mg/dL (8.3-10.6); Calcium (Corrected) 10.4 mg/dL (8.5-10.1); Carbon Dioxide 25.6 mMol/L (20.0-31.0); Chloride 103 mMol/L (98-107); Creatinine (Component) 0.6 mg/dL (0.6-1.3); Globulin 2.7 gm/dL (2.3-3.5); Glucose 115 mg/dL (74-106); Osmolality,Calculated 279 (275-295); Potassium 3.8 mMol/L (3.4-5.1); Sodium 139 mMol/L (136-145); Total Protein 7.4 gm/dL (5.7-8.2); eGFR > 60 See Note
[2024-10-02 11:13] LABS: Carcinoembryonic Antigen 22.3 ng/mL (0.0-5.0)
[2024-10-02 11:47] LABS: HCG,Qualitative Serum Negative
== END 2024-10-17 23:59 | disposition home or self-care (01) ==
LOC: SCTC 10:24
PROVIDERS: PCP Obstetrics & Gynecology; Referring Provider Obstetrics & Gynecology; Visit Provider Internal Medicine Hematology & Oncology
DX: Z51.11 Encounter for antineoplastic chemotherapy (principal); C18.7 Malignant neoplasm of sigmoid colon; C78.7 Secondary malignant neoplasm of liver and intrahepatic bile duct; R91.8 Other nonspecific abnormal finding of lung field; Z92.3 Personal history of irradiation
CPT/HCPCS: 36591; 80053; 82378; 84703; 85025; 96366; 96367; 96368; 96411; 96413; 96415; 96416; 96417; 99213; A4216; J0640; J1100; J1453; J1642; J2405; J9190; J9263; G0463

== ENCOUNTER 2024-11-10 08:27 | Outpatient (RCR) | payer MEDICAID, SELFPAY ==
[2024-10-27 10:28] LABS: Basophils % (Auto) 0 % (0-2.5); Eosinophils # (Auto) 0.1 Thou/mm3 (0.0-0.5); Eosinophils % (Auto) 1 % (0-10); Hematocrit 34.9 % (36.0-46.0); Hemoglobin 11.4 g/dL (12.0-16.0); Immature Granulocytes % (Auto) 0 % (0-0); Immature Granulocytes Auto 0.04 Thou/mm3 (0.00-0.00); Lymphocytes # (Auto) 1.3 Thou/mm3 (1.0-4.8); Lymphocytes % (Auto) 14 % (10-50); Mean Corpuscular HGB Conc 32.7 g/dl (31.0-37.0); Mean Corpuscular Hemoglobin 25.6 pg (25.0-35.0); Mean Corpuscular Volume 78 fL (80-100); Monocytes % (Auto) 10 % (0-12); Neutrophils # (Auto) 7.1 Thou/mm3 (1.8-7.7); Neutrophils % (Auto) 75 % (37-80); Nucleated Red Blood Cell % 0 /100 WBC (0); Platelet Count 265 Thou/mm3 (140-440); RDW Standard Deviation 44.9 fL (36.4-46.3); Red Blood Count 4.46 Miln/mm3 (4.00-5.20); White Blood Count 9.5 Thou/mm3 (3.6-11.0)
[2024-10-27 10:48] LABS: Carcinoembryonic Antigen 6.7 ng/mL (0.0-5.0)
[2024-10-27 11:02] LABS: Alanine Aminotransferase 18 U/L (10-49); Albumin, Serum 4.7 gm/dL (3.5-5.0); Albumin/Globulin Ratio 1.7 (1.2-2.2); Alkaline Phosphatase 72 U/L (46-116); Anion Gap 10 (7-16); BUN/Creatinine Ratio 18 Ratio (12-20); Bilirubin,Total 0.4 mg/dL (0.3-1.2); Blood Urea Nitrogen 11 mg/dL (9-23); Calcium 9.8 mg/dL (8.3-10.6); Calcium (Corrected) 9.8 mg/dL (8.5-10.1); Carbon Dioxide 27.5 mMol/L (20.0-31.0); Chloride 102 mMol/L (98-107); Creatinine (Component) 0.6 mg/dL (0.6-1.3); Globulin 2.8 gm/dL (2.3-3.5); Glucose 112 mg/dL (74-106); Osmolality,Calculated 277 (275-295); Potassium 3.8 mMol/L (3.4-5.1); Sodium 139 mMol/L (136-145); Total Protein 7.5 gm/dL (5.7-8.2); eGFR > 60 See Note
[2024-10-27 11:11] LABS: Aspartate Amino Transferase 12 U/L (0-34)
[2024-10-30 09:25] LABS: Basophils # (Auto) 0.1 Thou/mm3 (0.0-0.2); Basophils % (Auto) 0 % (0-2.5); Eosinophils % (Auto) 0 % (0-10); Hematocrit 32.4 % (36.0-46.0); Hemoglobin 10.8 g/dL (12.0-16.0); Immature Granulocytes % (Auto) 0 % (0-0); Immature Granulocytes Auto 0.07 Thou/mm3 (0.00-0.00); Lymphocytes # (Auto) 0.4 Thou/mm3 (1.0-4.8); Lymphocytes % (Auto) 2 % (10-50); Mean Corpuscular HGB Conc 33.3 g/dl (31.0-37.0); Mean Corpuscular Hemoglobin 25.8 pg (25.0-35.0); Mean Corpuscular Volume 78 fL (80-100); Monocytes # (Auto) 0.8 Thou/mm3 (0.0-0.8); Monocytes % (Auto) 5 % (0-12); Neutrophils # (Auto) 16.3 Thou/mm3 (1.8-7.7); Neutrophils % (Auto) 92 % (37-80); Nucleated Red Blood Cell % 0 /100 WBC (0); Platelet Count 232 Thou/mm3 (140-440); RDW Standard Deviation 43.6 fL (36.4-46.3); Red Blood Count 4.18 Miln/mm3 (4.00-5.20); White Blood Count 17.7 Thou/mm3 (3.6-11.0)
[2024-10-30 09:42] LABS: Alanine Aminotransferase 16 U/L (10-49); Albumin, Serum 4.6 gm/dL (3.5-5.0); Albumin/Globulin Ratio 1.5 (1.2-2.2); Alkaline Phosphatase 69 U/L (46-116); Anion Gap 9 (7-16); Aspartate Amino Transferase 18 U/L (0-34); BUN/Creatinine Ratio 11 Ratio (12-20); Bilirubin,Total 0.5 mg/dL (0.3-1.2); Blood Urea Nitrogen 8 mg/dL (9-23); Calcium 9.6 mg/dL (8.3-10.6); Calcium (Corrected) 9.6 mg/dL (8.5-10.1); Carbon Dioxide 27.1 mMol/L (20.0-31.0); Chloride 98 mMol/L (98-107); Creatinine (Component) 0.7 mg/dL (0.6-1.3); Glucose 164 mg/dL (74-106); Osmolality,Calculated 270 (275-295); Potassium 3.2 mMol/L (3.4-5.1); Sodium 134 mMol/L (136-145); Total Protein 7.6 gm/dL (5.7-8.2); eGFR > 60 See Note
[2024-10-30 09:46] LABS: HCG,Qualitative Serum Negative
--- NOTE | 2024-11-02 13:35 | CTCFLWUP_ITS ---
Patient: ALDO CALDERON : 1980 Page 2 of 2 FOLLOW UP NOTE DATE OF SERVICE: 11/01/2024 NAME: ALDO CALDERON ACCOUNT: [id number] : 1980 AGE: 44 INTERVAL HISTORY: Patient says she is doing better now. She had no fever. 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 MMR proficient. Dickinson syndrome panel testing negative S/p radiation therapy to the pelvis due to obstructive symptoms as well as bleeding (01/24/2024 - 2023) Status post sigmoid colectomy and colostomy bag placement on 04/24/2024. Mother had colon cancer in her 70s. 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 Augmentin - 500-125 mg 1 tab twice Daily 2. ZOFRAN ODT - 8 mg 1 tab As directed Medications Last Reconciled by Jael Kraus MA on 11/01/2024 ALLERGIES: Compazine; Compazine; morphine REVIEW OF SYSTEMS: A complete 14-point review of systems was performed and is negative except as noted in interval histo ry. PHYSICAL EXAMINATION: VITAL SIGNS: Temperature?100.2, B/P?114/76, Oxygen?Saturation?99% Weight?177.6?lbs (Change?since?10/30:?0.2?lbs) PAIN: 2 - Mild pain ECOG Performance Status: 0 - Asymptomatic and fully active EYE: Conjunctivae is pink. MOUTH: Oral cavity is dry. CHEST: Clear to auscultation. No wheezes or rales audible. CARDIAC: Rhythm regular, no murmurs or gallops present. ABDOMEN: Soft. No hepatomegaly. No splenomegaly. Colostomy bag in place functioning well EXTREMITIES: No pedal edema or cyanosis. LABORATORY DATA: I have personally reviewed and interpreted each of the patient?s relevant lab tests, abnormal finding s are below: Date 10/30/24 ??WHITE?BLOOD?COUNT?(Thou/mm3) 17.7?H ??RED?BLOOD?COUNT?(Miln/mm3) 4.18 ??HEMOGLOBIN?(gm/dl) 10.8?L ??HEMATOCRIT?(%) 32.4?L ??PLATELET?COUNT?(Thou/mm3) 232 ??NEUTROPHILS?%,?AUTO?(%) 92?H ??LYMPH?%,?AUTO?(%) 2?L ??NEUTROPHILS,?AUTO?(Thou/mm3) 16.3?H ASSESSMENT/PLAN: Stage IV T2 N0 M1 adenocarcinoma of the sigmoid colon with multiple pulmonary nodules biopsy negative and liver lesion biopsy positive MMR proficient Dickinson syndrome negative S/p radiation to the pelvis due to obstructive symptom as well as bleeding from 01/24/2024 to 02/25/2024 Status post sigmoid colectomy and colostomy bag placement on 04/24/2024 Liver lesion was positive for colon cancer Patient is on chemotherapy with FOLFOX Completed cycle 1 Tolerating well CEA is 21 CBC CMP CEA PET CT scan to see response to treatment As patient's fever has subsided Advised to do prechemo check labs and okay to proceed with chemotherapy Patient to continue antibiotics for at least 7 days CBC CMP and okay to proceed with treatment RETURN TO CLINIC: 6 weeks BILLING AND COMPLIANCE: I reviewed external records from providers outside my specialty as summarized above. I spent a total of 50 minutes on this patient?s care on the day of their visit excluding time spent related to any bi lled procedures. This time includes time spent with the patient as well as time spent documenting in the medical record, reviewing patients records and tests, obtaining history, placing orders, communi cating with other healthcare professionals, counseling the patient, family or caregiver, and/or care coordination for the diagnoses above. Electronically Signed by: Helder Rodrigues MD T: 1:32 PM CC: PCP: Ron Moreno Referring: Ron Moreno This document was completed utilizing speech recognition software. Grammatical errors, random word in sertions, pronoun errors, and incomplete sentences are an occasional consequence of this system due t o software limitations, ambient noise, and hardware issues. Any formal questions or concerns about th e content, text or information contained within the body of this dictation should be directly address ed to the provider for clarification.
[2024-11-06 10:10] LABS: Basophils % (Auto) 0 % (0-2.5); Eosinophils % (Auto) 1 % (0-10); Hemoglobin 10.7 g/dL (12.0-16.0); Immature Granulocytes % (Auto) 2 % (0-0); Immature Granulocytes Auto 0.12 Thou/mm3 (0.00-0.00); Lymphocytes # (Auto) 0.9 Thou/mm3 (1.0-4.8); Lymphocytes % (Auto) 13 % (10-50); Mean Corpuscular HGB Conc 32.4 g/dl (31.0-37.0); Mean Corpuscular Hemoglobin 25.5 pg (25.0-35.0); Mean Corpuscular Volume 79 fL (80-100); Monocytes # (Auto) 0.5 Thou/mm3 (0.0-0.8); Monocytes % (Auto) 7 % (0-12); Neutrophils # (Auto) 5.3 Thou/mm3 (1.8-7.7); Neutrophils % (Auto) 77 % (37-80); Nucleated Red Blood Cell % 0 /100 WBC (0); Platelet Count 396 Thou/mm3 (140-440); RDW Standard Deviation 44.5 fL (36.4-46.3); Red Blood Count 4.19 Miln/mm3 (4.00-5.20); White Blood Count 6.9 Thou/mm3 (3.6-11.0)
[2024-11-06 10:33] LABS: Alanine Aminotransferase 20 U/L (10-49); Albumin, Serum 4.5 gm/dL (3.5-5.0); Albumin/Globulin Ratio 1.5 (1.2-2.2); Alkaline Phosphatase 61 U/L (46-116); Anion Gap 8 (7-16); Aspartate Amino Transferase 19 U/L (0-34); BUN/Creatinine Ratio 13 Ratio (12-20); Bilirubin,Total 0.3 mg/dL (0.3-1.2); Blood Urea Nitrogen 8 mg/dL (9-23); Calcium 10.1 mg/dL (8.3-10.6); Calcium (Corrected) 10.1 mg/dL (8.5-10.1); Carbon Dioxide 28.1 mMol/L (20.0-31.0); Chloride 103 mMol/L (98-107); Creatinine (Component) 0.6 mg/dL (0.6-1.3); Glucose 127 mg/dL (74-106); Osmolality,Calculated 277 (275-295); Potassium 3.6 mMol/L (3.4-5.1); Sodium 139 mMol/L (136-145); Total Protein 7.5 gm/dL (5.7-8.2); eGFR > 60 See Note
[2024-11-06 10:34] LABS: Carcinoembryonic Antigen 4.7 ng/mL (0.0-5.0)
[2024-11-06 10:38] LABS: HCG,Qualitative Serum Negative
== END 2024-11-17 23:59 | disposition home or self-care (01) ==
LOC: SCTC 08:27
PROVIDERS: PCP Obstetrics & Gynecology; Referring Provider Obstetrics & Gynecology; Visit Provider Internal Medicine Hematology & Oncology
DX: Z51.11 Encounter for antineoplastic chemotherapy (principal); C19 Malignant neoplasm of rectosigmoid junction; C78.7 Secondary malignant neoplasm of liver and intrahepatic bile duct; Z90.49 Acquired absence of other specified parts of digestive tract; R91.8 Other nonspecific abnormal finding of lung field
CPT/HCPCS: 36591; 80053; 82378; 84703; 85025; 96361; 96365; 96366; 96367; 96368; 96411; 96413; 96415; 96416; 99212; A4216; J0640; J1100; J1453; J1642; J2405; J7030; J7050; J9190; J9263; G0463

== ENCOUNTER 2024-11-11 10:04 | Emergency (ER) | payer MEDICAID, SELFPAY ==
[2024-11-11 10:05] VITALS: BMI 29.0
[2024-11-11 10:23] VITALS: BP 108/72; PULSE 82; RESP 18; TEMP 36.9; O2SAT 99
--- NOTE | 2024-11-11 10:53 | PD.EDRME ---
Rapid Medical Screening Exam RME Arrival date/time: 11/11/24 10:04 This is a 44-year-old female presents to the emergency department with complaints of nausea, without emesis. After chemotherapy. Patient reports she is taking her Zofran still nauseous. Patient is extremely anxious. Requesting labs. I have greeted and performed a focused initial assessment of this patient. Initial appropriate labs ordered at this time. A comprehensive ED assessment and evaluation of the patient and analysis of all test and completion of medical decision making process will be conducted by additional ED provider. Chief Complaint: General Adult/Misc Complain Time Seen by Provider: 11/11/24 10:35 Vital signs: Vital Signs Temperature 98.4 F 11/11/24 10:23 Pulse Rate 82 11/11/24 10:23 Respiratory Rate 18 11/11/24 10:23 Blood Pressure 108/72 11/11/24 10:23 Pulse Oximetry (%) 99 11/11/24 10:23 Oxygen Delivery Method Room Air 11/11/24 10:23
[2024-11-11] MEDS: PROMETHAZINE HCL 25 MG TABLET PO (10:54)
[2024-11-11 11:19] LABS: Collection Type, Urine Clean Catch
[2024-11-11 11:32] LABS: Basophils % (Auto) 0 % (0-2.5); Eosinophils % (Auto) 0 % (0-10); Hematocrit 35.6 % (36.0-46.0); Hemoglobin 11.6 g/dL (12.0-16.0); Immature Granulocytes % (Auto) 0 % (0-0); Immature Granulocytes Auto 0.01 Thou/mm3 (0.00-0.00); Lymphocytes # (Auto) 0.7 Thou/mm3 (1.0-4.8); Lymphocytes % (Auto) 16 % (10-50); Mean Corpuscular HGB Conc 32.6 g/dl (31.0-37.0); Mean Corpuscular Hemoglobin 25.6 pg (25.0-35.0); Mean Corpuscular Volume 79 fL (80-100); Monocytes # (Auto) 0.1 Thou/mm3 (0.0-0.8); Monocytes % (Auto) 3 % (0-12); Neutrophils # (Auto) 3.5 Thou/mm3 (1.8-7.7); Neutrophils % (Auto) 81 % (37-80); Nucleated Red Blood Cell % 0 /100 WBC (0); Platelet Count 337 Thou/mm3 (140-440); RDW Standard Deviation 44.9 fL (36.4-46.3); Red Blood Count 4.53 Miln/mm3 (4.00-5.20); White Blood Count 4.3 Thou/mm3 (3.6-11.0)
[2024-11-11 11:40] LABS: HCG Qualitative,Urine Negative
[2024-11-11 11:41] LABS: Bilirubin,Urine Negative (Negative); Blood,Urine Negative (Negative); Clarity,Urine Clear (Clear/Hazy); Color,Urine Colorless (Lt Yel-Yel); Glucose, Urine Negative (Negative); Ketones,Urine Negative (Negative); Leukocyte Esterase,Urine Negative (Negative); Nitrite,Urine Negative (Negative); PH,Urine 6.5 (5.0-7.0); Protein,Urine Negative (Neg - Trace); RBC,Urine 2 /hpf (0-3); Squamous Epithelial Cell,Urine < 1 /hpf (0-5); Urobilinogen,Urine Negative mg/dL (0.0-1.0); WBC,Urine 1 /hpf (0-5)
[2024-11-11 11:46] LABS: Alanine Aminotransferase 21 U/L (10-49); Albumin/Globulin Ratio 1.8 (1.2-2.2); Alkaline Phosphatase 58 U/L (46-116); Anion Gap 8 (7-16); Aspartate Amino Transferase 15 U/L (0-34); BUN/Creatinine Ratio 13 Ratio (12-20); Bilirubin,Total 0.5 mg/dL (0.3-1.2); Blood Urea Nitrogen 9 mg/dL (9-23); Calcium 10.1 mg/dL (8.3-10.6); Calcium (Corrected) 10.1 mg/dL (8.5-10.1); Carbon Dioxide 28.4 mMol/L (20.0-31.0); Chloride 99 mMol/L (98-107); Creatinine (Component) 0.7 mg/dL (0.6-1.3); Estimated Creatinine Clearance 104.9 mL/min (>60); Globulin 2.8 gm/dL (2.3-3.5); Glucose 125 mg/dL (74-106); Lipase 40 U/L (12-53); Osmolality,Calculated 269 (275-295); Potassium 4.2 mMol/L (3.4-5.1); Sodium 135 mMol/L (136-145); Total Protein 7.8 gm/dL (5.7-8.2); eGFR > 60 See Note
--- NOTE | 2024-11-11 12:46 | EDNOTE_ITS ---
ED General RME/HPI General Chief complaint: General Adult/Misc Complain Stated complaint: WEAKNESS, NAUSEA, HEART RATE FAST, ANXIETY Time Seen by Provider: 11/11/24 10:35 Arrival date/time: 11/11/24 10:04 RME / HPI RME / HPI narrative: 44-year-old female patient with significant history of diabetes mellitus, came in for evaluation regarding nausea. Patient has been having nausea, after patient received chemotherapy for carcinoma of the colon metastatic. Also complained of generalized body weakness, on and off tachycardia, and anxiety- like symptoms. Patient denies any other complaints no medications taken prior to arrival. Patient denies any fever. Related Data Home Medications ?Medication ?Instructions ?Recorded ?Confirmed metformin 500 mg tablet 500 mg PO BID 06/15/24 09/06/24 Previous Rx's ?Medication ?Instructions ?Recorded ibuprofen 600 mg tablet 600 mg PO Q8H PRN pain #30 tabs 11/11/24 ondansetron HCl 4 mg tablet 4 mg PO Q8H PRN nausea and 11/11/24 vomiting 5 days #20 tabs Allergies Allergy/AdvReac Type Severity Reaction Status Date / Time acetaminophen [From Vicodin] Allergy Severe Hives Verified 11/11/24 10:07 hydrocodone [From Vicodin] Allergy Severe Hives Verified 11/11/24 10:07 morphine Allergy Severe Anxiety Verified 11/11/24 10:07 prochlorperazine Allergy Severe ANXITEY Verified 11/11/24 10:07 Review of Systems Review of Systems Narrative Review of Systems: Review of system reviewed and within normal limits except mentioned in HPI ED Exam Narrative Physical exam: VITAL SIGNS: Reviewed. GENERAL APPEARANCE: Alert and interactive, follows commands, no acute distress, HEAD AND FACE: Non-traumatic. ENT: PERRL, pink conjunctivitis, eyelid no trauma, Mucous membrane moist. NECK: Supple, nontender, no nuchal rigidity. CHEST: No tenderness, no crepitus, no paradoxical movement, no retractions. LUNGS: Clear, well ventilated, symmetric, no rales, no wheezing, no ronchi, no stridor, good breath sounds bilaterally. HEART: Regular rate, regular rhythm, no murmur, no gallops. ABDOMEN: Soft, positive bowel sounds, nondistended, no guarding, nontender, no rebound, no masses, RECTAL: Deferred. GENITAL: Deferred. NEUROLOGICAL: Gross motor function intact sensory function intact, Appropriate for age. MUSCULOSKELETAL: low back nontender, full range of motion. EXTREMITIES: Nontender, full range of motion. SKIN: Color pink, dry, no rash, no lacerations, no abrasions, no contusions. LYMPHATICS: Deferred. Course Quality Measures none Orders Category Date Time Status CBC Stat Lab 11/11/24 11:06 Completed Comprehensive Metabolic Panel Stat Lab 11/11/24 11:06 Completed HCG Qualitative,Urine Stat Lab 11/11/24 10:49 Completed Lipase Stat Lab 11/11/24 11:06 Completed Urinalysis Stat Lab 11/11/24 10:49 Completed Promethazine HCl [Phenergan] Med 11/11/24 10:36 Discontinued 25 mg PO X1 ONE Vital Signs Vital signs: Vital Signs Temperature 98.4 F 11/11/24 10:23 Pulse Rate 82 11/11/24 10:23 Respiratory Rate 18 11/11/24 10:23 Blood Pressure 108/72 11/11/24 10:23 Pulse Oximetry (%) 99 11/11/24 10:23 Oxygen Delivery Method Room Air 11/11/24 10:23 [facility] Patient data External records reviewed:: None Clinical information provided by:: patient and family Social determinants that could affect healthcare access:: none Patient has the following chronic illnesses:: Colon malignancy How is presenting disease/condition affected by chronic disease/condition?: e xacerbated by Evaluation data The following diagnostics were reviewed and interpreted by me:: lab results Lab and/or radiology exams considered but not ordered:: None Interpretation Summary: Patient CBC came back unremarkable. CMP also under came back normal patient blood sugar was noted to be 125. Urinalysis no UTI Medications Medications considered but not ordered:: None Medication administrations:: Medication Administration History Discontinued Medications Promethazine HCl (Promethazine Hcl 25 Mg Tablet) 25 mg PO X1 ONE Stop: 11/11/24 10:37 Last Admin: 11/11/24 10:54 Dose: 25 mg Documented By: [facility] Phenergan Consultations Consultation(s) initiated? (list below): No Diagnosis Differential Diagnosis ED Complaint MDM: Nausea, viral infection, history of colon cancer on chemo Most likely diagnosis given after review of the tests above:: Nausea, viral infection Admission Indicated Admission indicated?: not indicated Explain why admission is indicated or not indicated:: Stable Admission Request Was there a request for admission?: No Disposition Plan Disposition Plan: Discharge Discharge Attestation Discharge Attestation: The patient and all family members were given an opportunity to ask questions and understood the discharge instructions. Discharge instructions specifically effects, indications for sooner follow up or return to the emergency department, and the expected course of current diagnosis. Patient condition: Stable Medical Decision Making MDM Narrative MDM Narrative: 44-year-old female patient with significant history of diabetes mellitus, came in for evaluation regarding nausea. Patient has been having nausea, after patient received chemotherapy for carcinoma of the colon metastatic. Also complained of generalized body weakness, on and off tachycardia, and anxiety- like symptoms. Patient denies any other complaints no medications taken prior to arrival. Patient denies any fever. Patient's workup today all came back unremarkable. Patient was given Phenergan with significant improvement of symptoms. Patient appears nontoxic and hemodynamically stable. Patient discharged home and instructed to follow-up with primary care provider in 24 to 48 hours. Instructed to return to the emergency department immediately if worsening of symptoms Differential Diagnosis Differential Diagnosis: Nausea, viral infection, history of colon cancer on chemo Lab Data 11/11/24 11:06 11/11/24 11:06 Labs: Lab Results 11/11/24 11/11/24 Range/Units 10:49 11:06 WBC 4.3 (3.6-11.0) Thou/mm3 RBC 4.53 (4.00-5.20) Miln/mm3 Hgb 11.6 L (12.0-16.0) g/dL Hct 35.6 L (36.0-46.0) % MCV 79 L (80-100) fL MCH 25.6 (25.0-35.0) pg MCHC 32.6 (31.0-37.0) g/dl RDW Std Deviation 44.9 (36.4-46.3) fL Plt Count 337 D (140-440) Thou/mm3 Neut % (Auto) 81 H (37-80) % Lymph % (Auto) 16 (10-50) % [place] % (Auto) 3 (0-12) % Eos % (Auto) 0 (0-10) % Baso % (Auto) 0 (0-2.5) % Neut # (Auto) 3.5 (1.8-7.7) Thou/mm3 Lymph # (Auto) 0.7 L (1.0-4.8) Thou/mm3 [place] # (Auto) 0.1 (0.0-0.8) Thou/mm3 Eos # (Auto) 0.0 (0.0-0.5) Thou/mm3 Baso # (Auto) 0.0 (0.0-0.2) Thou/mm3 Immature Gran # (Auto) 0.01 H (0.00-0.00) Thou/mm3 Absolute Nucleated RBC 0.00 (0.00-0.00) Thou/mm3 Immature Gran % 0 (0-0) % Nucleated RBC % 0 (0) /100 WBC Sodium 135 L (136-145) mMol/L Potassium 4.2 (3.4-5.1) mMol/L Chloride 99 (98-107) mMol/L Carbon Dioxide 28.4 (20.0-31.0) mMol/L Anion Gap 8 (7-16) BUN 9 (9-23) mg/dL Creatinine 0.7 (0.6-1.3) mg/dL Estim Creat Clear Calc 104.9 (>60) mL/min eGFR > 60 (60 - ) See Note BUN/Creatinine Ratio 13 (12-20) Ratio Glucose 125 H (74-106) mg/dL Calculated Osmolality 269 L (275-295) Calcium 10.1 (8.3-10.6) mg/dL Corrected Calcium 10.1 (8.5-10.1) mg/dL Total Bilirubin 0.5 (0.3-1.2) mg/dL AST 15 (0-34) U/L ALT 21 (10-49) U/L Alkaline Phosphatase 58 (46-116) U/L Total Protein 7.8 (5.7-8.2) gm/dL Albumin 5.0 (3.5-5.0) gm/dL Globulin 2.8 (2.3-3.5) gm/dL Albumin/Globulin Ratio 1.8 (1.2-2.2) Lipase 40 (12-53) U/L Ur Collection Type Clean Catch Urine Color Colorless A (Lt Yel-Yel) Urine Clarity Clear (Clear/Hazy) Urine pH 6.5 (5.0-7.0) Ur Specific [place] 1.010 (1.001-1.035) Urine Protein Negative (Neg - Trace) Urine Glucose (UA) Negative (Negative) Urine Ketones Negative (Negative) Urine Blood Negative (Negative) Urine Nitrite Negative (Negative) Urine Bilirubin Negative (Negative) Urine Urobilinogen (Auto) Negative (0.0-1.0) mg/dL Ur Leukocyte Esterase Negative (Negative) Urine RBC 2 (0-3) /hpf Urine WBC 1 (0-5) /hpf Ur Squamous Epith Cells < 1 (0-5) /hpf Urine Bacteria None (None) Urine HCG, Qual Negative Discharge Plan Plan Patient Disposition: HOME (Self Care) Disposition Comment: Stable Prescriptions/Referrals Prescriptions/Med Rec: New ondansetron HCl 4 mg tablet 4 mg PO Q8H PRN (Reason: nausea and vomiting) 5 Days Qty: 20 0RF ibuprofen 600 mg tablet 600 mg PO Q8H PRN (Reason: pain) Qty: 30 0RF No Action metformin 500 mg Tablet 500 mg PO BID Referrals: Ron Moreno MD [Primary Care Provider] - In 1 week Problem List Clinical Impression: Viral infection, Nausea Patient/Caregiver Discharge Instructions Discharge Activity: activity as tolerated Education Materials: ED Viral Syndrome (Adult) Additional Instructions: Thank you for the opportunity for serving you today. You are stable for discharged . You are advised to: Follow-up with your PCP in 1 to 2 days Return to ED for worsening of symptoms Increase oral fluids Take medication as prescribed Print Language: Macedonian Stand Alone Forms: Cherrie Award Info., Patient Portal Info Letter HARISH/TONY Supervising Physician HARISH/TONY Supervising Physician: MD Patrick
[2024-11-11 13:08] VITALS: BP 100/67; PULSE 81; RESP 17; TEMP 37.1; O2SAT 99
== END 2024-11-11 13:08 | disposition home or self-care (01) ==
PROVIDERS: Nurse Practitioner Primary Care; Emergency Provider Emergency Medicine; PCP Obstetrics & Gynecology
DX: B34.9 Viral infection, unspecified (principal); E11.9 Type 2 diabetes mellitus without complications; C78.5 Secondary malignant neoplasm of large intestine and rectum
CPT/HCPCS: 36415; 80053; 81001; 81025; 83690; 85025; 99283; A9270

== ENCOUNTER → 2024-11-16 | Outpatient (CLI) | payer MEDICAID, SELFPAY ==
[2024-11-16 14:07] LABS: HCG Qualitative,Urine Negative
--- NOTE | 2024-11-16 14:44 | XR_ITS ---
EXAMINATION: PET/CT FUSION SKULL TO THIGH EXAM DATE AND TIME: November 16, 2024 1600 hours Comparison 07/06/2024 INDICATIONS: Colon carcinoma post treatment restaging CTDI:vol (mGy) 5.34 DLP: (mGycm) 488.24 PROCEDURE: 15.26 mCi FDG was administered intravenously To allow for distribution and uptake of radiotracer, the patient was allowed to rest quietly in a shielded room. Imaging was performed on an integrated 16-slice PET/CT scanner, with scanning from the skull base to the mid thigh. Serum blood glucose at the time of the injection was measured 119 mg/dL. CT scanning was performed without oral or intravenous contrast material. FINDINGS: Head and Neck: There is no brianna hypermetabolism in the neck. The visualized portions of the brain are normal in appearance on CT. Chest: Numerous bilateral metastatic pulmonary nodules again noted without significant change in size No new pulmonary nodules Abdomen and Pelvis: More hypermetabolic right lobe liver lesion, measuring 28 mm Musculoskeletal: Marrow uptake is within normal range. IMPRESSION: Stable pulmonary nodular metastatic disease Enlarging hypermetabolic right lobe liver lesion compared with 07/06/2024 Consider MRI liver follow-up pre and postcontrast
== END | disposition home or self-care (01) ==
PROVIDERS: PCP Obstetrics & Gynecology; Referring Provider Internal Medicine Hematology & Oncology; Visit Provider Internal Medicine Hematology & Oncology
DX: K76.9 Liver disease, unspecified (principal); C19 Malignant neoplasm of rectosigmoid junction; C78.02 Secondary malignant neoplasm of left lung; C78.01 Secondary malignant neoplasm of right lung; Z32.00 Encounter for pregnancy test, result unknown
CPT/HCPCS: 78815; 81025; A9552

== ENCOUNTER 2024-11-19 11:01 | Emergency (ER) | payer MEDICAID, SELFPAY ==
[2024-11-19 11:02] VITALS: BMI 28.6
[2024-11-19 11:25] VITALS: BP 108/74; PULSE 101; RESP 16; TEMP 37.2; O2SAT 97
--- NOTE | 2024-11-19 12:38 | PD.EDRME ---
Rapid Medical Screening Exam RME Arrival date/time: 11/19/24 11:01 44-year-old female presents emerged apartment today complains of a 3-day history of nausea vomiting and bodyaches patient significant other is being seen as well for similar symptoms patient does report that she has cancer Chief Complaint: Nausea/Vomiting/Diarrhea Vital signs: Vital Signs Temperature 99.0 F 11/19/24 11:25 Pulse Rate 101 H 11/19/24 11:25 Respiratory Rate 16 11/19/24 11:25 Blood Pressure 108/74 11/19/24 11:25 Pulse Oximetry (%) 97 11/19/24 11:25 Oxygen Delivery Method Room Air 11/19/24 11:25
[2024-11-19 13:09] LABS: Basophils % (Auto) 0 % (0-2.5); Eosinophils # (Auto) 0.1 Thou/mm3 (0.0-0.5); Eosinophils % (Auto) 1 % (0-10); Hematocrit 36.8 % (36.0-46.0); Immature Granulocytes % (Auto) 0 % (0-0); Immature Granulocytes Auto 0.01 Thou/mm3 (0.00-0.00); Lymphocytes # (Auto) 0.3 Thou/mm3 (1.0-4.8); Lymphocytes % (Auto) 4 % (10-50); Mean Corpuscular HGB Conc 32.6 g/dl (31.0-37.0); Mean Corpuscular Volume 80 fL (80-100); Monocytes # (Auto) 0.2 Thou/mm3 (0.0-0.8); Monocytes % (Auto) 2 % (0-12); Neutrophils # (Auto) 7.1 Thou/mm3 (1.8-7.7); Neutrophils % (Auto) 93 % (37-80); Nucleated Red Blood Cell % 0 /100 WBC (0); Platelet Count 250 Thou/mm3 (140-440); RDW Standard Deviation 48.1 fL (36.4-46.3); Red Blood Count 4.61 Miln/mm3 (4.00-5.20); White Blood Count 7.7 Thou/mm3 (3.6-11.0)
[2024-11-19] MEDS: ONDANSETRON ODT 4 MG TABRAP PO (13:28)
[2024-11-19 13:31] LABS: Alanine Aminotransferase 19 U/L (10-49); Albumin, Serum 4.6 gm/dL (3.5-5.0); Albumin/Globulin Ratio 1.6 (1.2-2.2); Alkaline Phosphatase 61 U/L (46-116); Anion Gap 8 (7-16); Aspartate Amino Transferase 12 U/L (0-34); BUN/Creatinine Ratio 16 Ratio (12-20); Bilirubin,Total 0.5 mg/dL (0.3-1.2); Blood Urea Nitrogen 11 mg/dL (9-23); Calcium 9.3 mg/dL (8.3-10.6); Calcium (Corrected) 9.3 mg/dL (8.5-10.1); Carbon Dioxide 29.5 mMol/L (20.0-31.0); Chloride 100 mMol/L (98-107); Creatinine (Component) 0.7 mg/dL (0.6-1.3); Estimated Creatinine Clearance 104.3 mL/min (>60); Globulin 2.8 gm/dL (2.3-3.5); Glucose 113 mg/dL (74-106); Lipase 52 U/L (12-53); Osmolality,Calculated 274 (275-295); Potassium 3.8 mMol/L (3.4-5.1); Sodium 137 mMol/L (136-145); Total Protein 7.4 gm/dL (5.7-8.2); eGFR > 60 See Note
[2024-11-19 14:25] LABS: Collection Type, Urine Clean Catch
[2024-11-19 14:57] LABS: Amorphous Crystals,Urine Present (Absent); Bilirubin,Urine Negative (Negative); Blood,Urine Trace (Negative); Clarity,Urine Clear (Clear/Hazy); Color,Urine Yellow (Lt Yel-Yel); Culture Indicated,Urine Not Indicated; Glucose, Urine Negative (Negative); Ketones,Urine Negative (Negative); Leukocyte Esterase,Urine Positive (Negative); Nitrite,Urine Negative (Negative); Protein,Urine Trace (Neg - Trace); RBC,Urine 5 /hpf (0-3); Specific Gravity,Urine 1.027 (1.001-1.035); Squamous Epithelial Cell,Urine 1 /hpf (0-5); Urobilinogen,Urine Negative mg/dL (0.0-1.0); WBC,Urine 2 /hpf (0-5)
[2024-11-19 14:59] LABS: HCG Qualitative,Urine Negative
[2024-11-19 15:01] VITALS: BP 93/61; PULSE 96; RESP 18; TEMP 37.2; O2SAT 99
--- NOTE | 2024-11-19 18:08 | EDNOTE_ITS ---
Nausea/Vomit./Diarrhea-RME/HPI General Chief complaint: Nausea/Vomiting/Diarrhea Stated complaint: N/V X3 DAYS, CA PATIENT Time Seen by Provider: 11/19/24 17:39 Arrival date/time: 11/19/24 11:01 This is a 44-year-old female that comes in with complaints of nausea and vomiting that started for the last couple days. Patient states that family members all have nausea vomiting diarrhea in the household. It initially started with her niece and then a couple days later her baby had it and now her son and her have the nausea vomiting diarrhea. Patient reports history of colon cancer. Patient states that the cancer has moved her liver. Patient has had surgery and now has a colostomy. Patient denies any urinary symptoms. Patient denies any back pain or abdominal pain. RME / HPI RME / HPI Narrative: 11/19/24 11:01 44-year-old female presents emerged apartment today complains of a 3-day history of nausea vomiting and bodyaches patient significant other is being seen as well for similar symptoms patient does report that she has cancer Related Data Home Medications ?Medication ?Instructions ?Recorded ?Confirmed metformin 500 mg tablet 500 mg PO BID 06/15/2409/06 Previous Rx's ?Medication ?Instructions ?Recorded ibuprofen 600 mg tablet 600 mg PO Q8H PRN pain #30 t abs 11/11/24 Allergies Allergy/AdvReac Type Severity Reaction Status Date / Time acetaminophen (From Vicodin) Allergy Severe Hives Verified 11/11/24 10:07 hydrocodone (From Vicodin) Allergy Severe Hives Verified 11/11/24 10:07 morphine Allergy Severe Anxiety Verified 11/11/24 10:07 prochlorperazine Allergy Severe ANXITEY Verified 11/11/24 10:07 Review of Systems Review of Systems Systems Reviewed: All systems reviewed, normal except as documented Past Medical History Past Medical History NEUROLOGIC: Positive Neurological Disorders and Seizures (x1 in 2003 with spinal after ); Negative Cerebrovascular Accident, Transient Ischemic Attacks (TIA), Dementia, Alzheimer's Disease, Parkinson's Disease, Brain Tumor, Meningitis, Epilepsy, Multiple Sclerosis, Cerebral Palsy, Amyotrophic Lateral Sclerosis (ALS/Cora Gehrig's), Guillain-Eagle Syndrome, Spina Bifida, Paralysis, Peripheral Neuropathy, Akbar's Palsy, Subdural Hematoma, Migraine, Head Trauma, Spinal Cord Injury or Traumatic Brain Injury CARDIAC: Positive Cardiac Disorders and Varicose Veins; Negative Myocardial Infarction, Cardiac Arrhythmia, Atrial Fibrillation, Angina, Heart Murmur, Coronary Artery Disease, Atherosclerotic Heart Disease, Peripheral Vascular Disease, Hypercholesterolemia, Aneurysm, Congestive Heart Failure, Congenital Heart Disease, Valvular Heart Disease, Rheumatic Fever, Cardiomyopathy, Edema, Pericarditis, Cellulitis, Deep Vein Thrombosis, Hypertension or Hypotension RESPIRATORY: Negative Chronic Obstructive Pulmonary Disease (COPD), Asthma, Bronchitis, Emphysema, Pneumonia, Pulmonary Fibrosis, Cystic Fibrosis, Tuberculosis, Pulmonary Embolism, Pulmonary Edema or Sleep Apnea GASTROINTESTINAL: Positive Gastrointestinal Disorders (having a liver biopsy Wednesday) and Colorectal Cancer; Negative Hepatitis, Cirrhosis, Pancreatitis, Celiac Disease, Gall Bladder Disease, Gastrointestinal Bleed, Esophageal Varices, Evans's Esophagus, Colitis, Ulcerative Colitis, Diverticulitis, Diverticulosis, Ulcer, Irritable Bowel, Crohn's Disease, Obstructive Bowel, Hiatal Hernia, Hemorrhoids, Gastroesophageal Reflux Disease or Obesity GENITOURINARY: Negative Genitourinary Disorders, Renal Disease, Kidney Stones, Polycystic Kidney Disease, Neurogenic Bladder, Inguinal Hernia, Dialysis, Prostate Cancer or Benign Prostatic Hyperplasia REPRODUCTIVE: Positive Previous Pregnancies; Negative Breast Cancer, Endometriosis, Genital Herpes, Gonorrhea, Pelvic Inflammatory Disease, Syphilis, Testicular Cancer or Uterine Prolapse MUSCULOSKELETAL: Negative Musculoskeletal Disorders, Muscular Dystrophy, Myasthenia Gravis, Marfan's Syndrome, Bone Cancer, Arthritis, Rheumatoid Arthr itis, Osteoporosis, Degenerative Disk Disease, Gout, Scoliosis, Carpal Tunnel Syndrome, Fibromyalgia, Fractures, Degenerative Joint Disease, Osteomyelitis or Poliovirus ENT: Negative Cataracts, Glaucoma, Blind, Retinal Detachment, Macular Degeneration, Ear Infection, Deafness, Head Trauma or Eye Prosthesis ENDOCRINE: Positive Endocrine Disorders and Diabetes Mellitus Type 2; Negative Diabetes Mellitus Type 1, Hypoglycemia, Arias's Syndrome, Kossuth's Disease, Hyperthyroidism, Hypothyroidism, Parathyroid Disease, Pituitary Disease, Systemic Lupus Erythematosus, Syndrome of Inappropriate Antidiuretic Hormone (SIADH), Adrenal Disease or Graves' Disease HEMATOLOGIC: Positive Anemia; Negative Blood Disorders, Leukemia, Hemophilia, Thalassemia, Sickle Cell Disease or Clotting Problems PSYCHO/SOCIAL: Positive Depression (no meds) and Anxiety; Negative Psychiatric Problems, Schizophrenia, Recreational Drug Use, Bipolar Disorder, Behavior Problems, Self-Mutilation, Attention Deficit Disorder, Attention Deficit Hyperactivity Disorder, Depression, Post Traumatic Stress Disorder or Eating Disorder OTHER HISTORY: Positive Hospitalization (stomach issues), Anesthesia Reactions (had a seizure after spinal), Chemotherapy (COLON CANCER 2023), Radiation Therapy (COLON CANCER 2023), Chicken Pox, Measles, Mumps, Cancer and Colorectal Cancer; Negative Autoimmune Disease, Down Syndrome, Autism, Developmental Delay, Shingles, Falls, Blood Transfusions, Blood Transfusion Reaction, Organ Transplant, Hyperbaric Therapy, MRSA, VRSA, Vancomycin-Resistant Enterococci, Human Immunodeficiency Virus (HIV), Rubella (English Measles), Pertussis, Clostridium Difficile, Breast Cancer, Cervical Cancer, Lung Cancer (TO BE DETERMINED WITH BIOPSY), Ovarian Cancer, Prostate Cancer or Testicular Cancer Family History FAMILY HISTORY: Positive Family Cardiac Disorders (SISTER CABG), Family Gastrointestinal Problems (MOM COLON CANCER) and Family Cancer; Negative Family Psychiatric Problems, Family Respiratory Disorders, Family Surgery or Family Anesthesia Reaction Surgical History SURGICAL: Positive Abdominal Surgery, Bowel Surgery (colon resection with colostomy) and Section (X3); Negative Cardiac Surgery, Open Heart Surgery, Coronary Artery Bypass Graft, Valve Replacement, Vascular Surgery, Coronary Stent, Cardiac Catheterization, Pacemaker, Angiogram, Auto Implanted Cardiovert Defib, Carotid Endarterectomy, Endocrine Surgery, Thyroidectomy, Ear Surgery, Tympanostomy Tube, Eye Surgery, Nose Surgery, Oral Surgery, Tonsillectomy, Adenoidectomy, Cochlear Implant, Corneal Transplant, Throat Surgery, Tracheostomy, Gastric Bypass Surgery, Gastrostomy, Nephrectomy, Transurethral Resection, Joint Replacement, Amput ation, Open Reduction Internal Fixation, Arthroscopy, Neurologic Surgery, Brain Shunt, Mastectomy, Lumpectomy, Hysterectomy, Tubal Ligation, Vasectomy or Organ Transplant Social History SMOKING STATUS: Never smoker SECOND HAND EXPOSURE: No ED Exam General General appearance: Present alert and in no apparent distress Head Head exam: Present atraumatic Eye Eye exam: Present normal appearance, PERRL and EOMI ENT ENT exam: Present normal exam, normal oropharynx and mucous membranes moist Neck Neck exam: Present normal inspection, full ROM and trachea midline Chest Chest inspection: Present normal inspection and symmetric chest wall rise Respiratory Respiratory exam: Present normal lung sounds bilaterally Cardiovascular Cardiovascular exam: Present regular rate, normal rhythm and normal heart sounds Abdominal Exam Abdominal exam: Present soft Extremities Exam Extremities exam: Present normal inspection and full ROM Back Exam Back exam: Present normal inspection and full ROM Neurological Exam Neurological exam: Present alert, oriented X3 and CN II-XII intact Psychiatric Psychiatric exam: Present normal affect and normal mood Skin Skin exam: Present warm, dry, intact and normal color Course Quality Measures none Orders Category Date Time Status Bedside Influenza A&B Antigen Test NOW Care 11/19/24 11:35 Completed CBC Stat Lab 11/19/24 12:48 Completed Comprehensive Metabolic Panel Stat Lab 11/19/24 12:48 Completed HCG Qualitative,Urine Stat Lab 11/19/24 14:16 Completed Lipase Stat Lab 11/19/24 12:48 Completed UA, C/S IF [Urinalysis, C/S if Indicated] Stat Lab 11/19/24 14:16 Completed Urine Culture Stat Lab 11/19/24 14:16 Completed LORazepam [Ativan] Med 11/19/24 18:16 Discontinued 1 mg PO X1 ONE Ondansetron Odt [Zofran Odt] Med 11/19/24 12:37 Discontinued 4 mg PO X1 ONE cefTRIAXone [Rocephin] 1,000 mg Med 11/19/24 18:16 Discontinued Lidocaine 1% 20 ml [Xylocaine 1% 20 ML] 2.1 ml IM X1 Vital Signs Vital signs: Vital Signs Temperature 99.0 F 11/19/24 11:25 Pulse Rate 101 H 11/19/24 11:25 Respiratory Rate 16 11/19/24 11:25 Blood Pressure 108/74 11/19/24 11:25 Pulse Oximetry (%) 97 11/19/24 11:25 Oxygen Delivery Method Room Air 11/19/24 11:25 Nausea/Vomiting/Diarrhea MDM Narrative MDM Narrative:: cbc bmp unremarkable. I spoke to patient at length. Patient wants to go home. patient not complain of urinary symptoms but does have some hematuria and in urine and leukocyte Estrace in urine. Will give a dose of Rocephin. Patient likely has viral illness that family members all have. Patient told to drink plenty of fluids. Patient told to follow-up with primary provider in 1 to 2 days. Come back to the emergency room symptoms change or worsen. Patient comfortable plan of care. Patient states that she has not been able to sleep in the last couple days because she has been feeling anxious because she has a lot of stuff going on. I will give her 1 dose of Ativan. I told patient to follow- up with primary provider about anxiety. Patient data External records reviewed:: [facility] previous records Clinical information provided by:: patient Social determinants that could affect healthcare access:: none Patient has the following chronic illnesses:: see hpi How is presenting disease/condition affected by chronic disease/condition?: no chronic disease Evaluation data The following diagnostics were reviewed and interpreted by me:: lab results Lab and/or radiology exams considered but not ordered:: none Interpretation Summary: see note Medications / Prescriptions Medications / Prescriptions considered but not ordered:: none Medication administrations:: Medication Administration History Discontinued Medications Ceftriaxone Sodium 1,000 mg/ (Lidocaine HCl 2.1 ml) 0 mg IM X1 ONE Stop: 11/19/24 18:17 Last Admin: 11/19/24 18:35 Dose: 1,000 mg Documented By: VG Lorazepam (Lorazepam 0.5 Mg Tablet) 1 mg PO X1 ONE Stop: 11/19/24 18:17 Last Admin: 11/19/24 18:33 Dose: 1 mg Documented By: VG Ondansetron HCl (Ondansetron Odt 4 Mg Tabrap) 4 mg PO X1 ONE; Protocol Stop: 11/19/24 12:38 Last Admin: 11/19/24 13:28 Dose: 4 mg Documented By: ER see mar Consultations Consultation(s) initiated? (list below): No Diagnosis Nausea Differential Diagnosis: dehydration and other (uti, pyleonephritis, kidney stones ) Most likely diagnosis given after review of the tests above:: uti Admission Indicated Admission indicated?: not indicated Admission Request Was there a request for admission?: No Disposition Plan Disposition Plan: Discharge Discharge Attestation Discharge Attestation: The patient and all family members were given an opportunity to ask questions and understood the discharge instructions. Discharge instructions specifically effects, indications for sooner follow up or return to the emergency department, and the expected course of current diagnosis. Patient condition: Stable Discharge Plan Plan Patient Disposition: HOME (Self Care) Patient condition on transfer: Stable Prescriptions/Referrals Prescriptions/Med Rec: No Action ibuprofen 600 mg tablet 600 mg PO Q8H PRN (Reason: pain) Qty: 30 0RF metformin 500 mg Tablet 500 mg PO BID Referrals: No Primary/Family,Physician [Primary Care Provider] - In 1 week Problem List Clinical Impression: Vomiting, Hematuria, Anxiety Patient/Caregiver Discharge Instructions Discharge Activity: activity as tolerated Education Materials: ED Hematuria, ED Vomiting (Adult) Additional Instructions: Follow-up with primary provider in 1 to 2 days. Come back to the emergency room if symptoms change or worsen. Please follow-up with urine culture with primary provider. Print Language: Liberian Stand Alone Forms: Cherrie Award Info., Patient Portal Info Letter PA/PHYSICIST ASTROPHYSICS Supervising Physician PA/PHYSICIST ASTROPHYSICS Supervising Physician: keith
[2024-11-19] MEDS: LORazepam 0.5 MG TABLET 1 MG PO (18:33)
[2024-11-19] MEDS: cefTRIAXone 1,000 MG, LIDOCAINE 1% 20 ML 2.1 ML IM (18:35)
[2024-11-19 19:03] VITALS: BP 135/70; PULSE 70; RESP 18; TEMP 36.6; O2SAT 100
== END 2024-11-19 19:03 | disposition home or self-care (01) ==
PROVIDERS: Nurse Practitioner Primary Care; Emergency Provider Emergency Medicine
DX: R11.2 Nausea with vomiting, unspecified (principal); F41.9 Anxiety disorder, unspecified; R31.9 Hematuria, unspecified; Z93.3 Colostomy status
CPT/HCPCS: 36415; 80053; 81001; 81025; 83690; 85025; 87086; 87400; 96372; 99283; J0696; J3490; Q0162; A9270

== ENCOUNTER 2024-12-15 08:36 | Outpatient (RCR) | payer MEDICAID, SELFPAY ==
[2024-11-28 13:02] LABS: Basophils % (Auto) 0 % (0-2.5); Eosinophils % (Auto) 1 % (0-10); Hematocrit 36.2 % (36.0-46.0); Hemoglobin 11.6 g/dL (12.0-16.0); Immature Granulocytes % (Auto) 1 % (0-0); Immature Granulocytes Auto 0.03 Thou/mm3 (0.00-0.00); Lymphocytes # (Auto) 0.7 Thou/mm3 (1.0-4.8); Lymphocytes % (Auto) 13 % (10-50); Mean Corpuscular Hemoglobin 26.4 pg (25.0-35.0); Mean Corpuscular Volume 82 fL (80-100); Monocytes # (Auto) 0.5 Thou/mm3 (0.0-0.8); Monocytes % (Auto) 10 % (0-12); Neutrophils # (Auto) 3.7 Thou/mm3 (1.8-7.7); Neutrophils % (Auto) 75 % (37-80); Nucleated Red Blood Cell % 0 /100 WBC (0); Platelet Count 290 Thou/mm3 (140-440); RDW Standard Deviation 51.4 fL (36.4-46.3); White Blood Count 4.9 Thou/mm3 (3.6-11.0)
[2024-11-28 13:15] LABS: HCG,Qualitative Serum Negative
[2024-11-28 13:22] LABS: Alanine Aminotransferase 23 U/L (10-49); Albumin, Serum 4.5 gm/dL (3.5-5.0); Albumin/Globulin Ratio 1.7 (1.2-2.2); Alkaline Phosphatase 53 U/L (46-116); Anion Gap 9 (7-16); Aspartate Amino Transferase 19 U/L (0-34); BUN/Creatinine Ratio 18 Ratio (12-20); Bilirubin,Total 0.3 mg/dL (0.3-1.2); Blood Urea Nitrogen 11 mg/dL (9-23); Calcium 10.3 mg/dL (8.3-10.6); Calcium (Corrected) 10.3 mg/dL (8.5-10.1); Carbon Dioxide 27.9 mMol/L (20.0-31.0); Chloride 106 mMol/L (98-107); Creatinine (Component) 0.6 mg/dL (0.6-1.3); Globulin 2.6 gm/dL (2.3-3.5); Glucose 108 mg/dL (74-106); Osmolality,Calculated 285 (275-295); Potassium 3.9 mMol/L (3.4-5.1); Sodium 143 mMol/L (136-145); Total Protein 7.1 gm/dL (5.7-8.2); eGFR > 60 See Note
[2024-11-28 13:25] LABS: Carcinoembryonic Antigen 6.2 ng/mL (0.0-5.0)
[2024-12-12 10:33] LABS: Basophils % (Auto) 0 % (0-2.5); Eosinophils % (Auto) 1 % (0-10); Hematocrit 35.7 % (36.0-46.0); Hemoglobin 11.5 g/dL (12.0-16.0); Immature Granulocytes % (Auto) 0 % (0-0); Immature Granulocytes Auto 0.01 Thou/mm3 (0.00-0.00); Lymphocytes # (Auto) 0.6 Thou/mm3 (1.0-4.8); Lymphocytes % (Auto) 17 % (10-50); Mean Corpuscular HGB Conc 32.2 g/dl (31.0-37.0); Mean Corpuscular Hemoglobin 26.6 pg (25.0-35.0); Mean Corpuscular Volume 83 fL (80-100); Monocytes # (Auto) 0.3 Thou/mm3 (0.0-0.8); Monocytes % (Auto) 9 % (0-12); Neutrophils # (Auto) 2.7 Thou/mm3 (1.8-7.7); Neutrophils % (Auto) 73 % (37-80); Nucleated Red Blood Cell % 0 /100 WBC (0); Platelet Count 236 Thou/mm3 (140-440); RDW Standard Deviation 51.7 fL (36.4-46.3); Red Blood Count 4.32 Miln/mm3 (4.00-5.20); White Blood Count 3.6 Thou/mm3 (3.6-11.0)
[2024-12-12 10:43] LABS: HCG,Qualitative Serum Negative
[2024-12-12 11:31] LABS: Alanine Aminotransferase 21 U/L (10-49); Albumin, Serum 4.6 gm/dL (3.5-5.0); Albumin/Globulin Ratio 2.1 (1.2-2.2); Alkaline Phosphatase 71 U/L (46-116); Anion Gap 9 (7-16); Aspartate Amino Transferase 15 U/L (0-34); BUN/Creatinine Ratio 18 Ratio (12-20); Bilirubin,Total 0.3 mg/dL (0.3-1.2); Blood Urea Nitrogen 11 mg/dL (9-23); Calcium 9.5 mg/dL (8.3-10.6); Calcium (Corrected) 9.5 mg/dL (8.5-10.1); Chloride 105 mMol/L (98-107); Creatinine (Component) 0.6 mg/dL (0.6-1.3); Globulin 2.2 gm/dL (2.3-3.5); Glucose 109 mg/dL (74-106); Osmolality,Calculated 281 (275-295); Sodium 141 mMol/L (136-145); Total Protein 6.8 gm/dL (5.7-8.2); eGFR > 60 See Note
== END 2024-12-15 23:59 | disposition home or self-care (01) ==
LOC: SCTC 08:36
PROVIDERS: PCP Family Medicine; Referring Provider Family Medicine; Visit Provider Internal Medicine Hematology & Oncology
DX: Z51.11 Encounter for antineoplastic chemotherapy (principal); C19 Malignant neoplasm of rectosigmoid junction; C78.7 Secondary malignant neoplasm of liver and intrahepatic bile duct; Z90.49 Acquired absence of other specified parts of digestive tract; R91.8 Other nonspecific abnormal finding of lung field
CPT/HCPCS: 36591; 80053; 82378; 84703; 85025; 96366; 96367; 96368; 96411; 96413; 96415; 96416; A4216; J0640; J1100; J1453; J1642; J2405; J7050; J7060; J9190; J9263

== ENCOUNTER → 2024-12-21 | Outpatient (CLI) | payer MEDICAID, SELFPAY ==
[2024-12-20 16:53] LABS: HCG Qualitative,Urine Negative
--- NOTE | 2024-12-21 08:00 | XR_ITS ---
Examination: MRI abdomen with intravenous contrast. MRI abdomen without intravenous contrast. Date and time of exam: December 21, 2024 at 0819 hours Comparison MRI abdomen August 16, 2024, PET CT scan November 16, 2024 Technique: Multiple axial, sagittal and coronal sections of the abdomen obtained. Transverse images, TR 6020, TE 107. T1 weighted transverse images, TR 582, TE 9.5. T2-weighted sagittal images, TR 4000, TE 105. T2-weighted sagittal images, TR 4000, TE 5. Coronal images, TR 4210, TE 107. Axial and coronal images are obtained post 19 cc intravenous injection, gadolinium. Findings: Irregular enhancing anterior right lobe liver lesion measures 18.8 mm compared to 18.8 mm on MRI abdomen August 16, 2024 No new enhancing liver lesions Spleen is not enlarged Gallbladder is not distended No pancreatic mass, no dilated pancreatic duct Normal adrenal glands Aorta normal size No interval pericaval periaortic lymphadenopathy No hydronephrosis Homogeneous marrow signal visualized osseous structures Pulmonary nodule right midlung measures 11 mm compared to 11 mm MRI abdomen August 16, 2024 IMPRESSION: Irregularly enhancing anterior right lobe liver lesion measures 18.8 mm on the current study compared to 18.8 mm on MRI abdomen August 16, 2024 No new enhancing liver lesions No interval abdominal lymphadenopathy No extrahepatic biliary tract dilatation Pulmonary nodule right midlung measures 11 mm compared to 11 mm on MRI abdomen August 16, 2024
== END | disposition home or self-care (01) ==
PROVIDERS: Referring Provider Internal Medicine Hematology & Oncology; Visit Provider Internal Medicine Hematology & Oncology
DX: K76.9 Liver disease, unspecified (principal); R91.1 Solitary pulmonary nodule; C19 Malignant neoplasm of rectosigmoid junction; Z32.00 Encounter for pregnancy test, result unknown
CPT/HCPCS: 74183; 81025; A9579

== ENCOUNTER 2025-01-12 08:25 | Outpatient (RCR) | payer MEDICAID, SELFPAY ==
[2024-12-26 11:00] LABS: Basophils % (Auto) 0 % (0-2.5); Eosinophils % (Auto) 1 % (0-10); Hematocrit 36.5 % (36.0-46.0); Hemoglobin 11.8 g/dL (12.0-16.0); Immature Granulocytes % (Auto) 0 % (0-0); Immature Granulocytes Auto 0.01 Thou/mm3 (0.00-0.00); Lymphocytes # (Auto) 0.7 Thou/mm3 (1.0-4.8); Lymphocytes % (Auto) 15 % (10-50); Mean Corpuscular HGB Conc 32.3 g/dl (31.0-37.0); Mean Corpuscular Hemoglobin 26.6 pg (25.0-35.0); Mean Corpuscular Volume 82 fL (80-100); Monocytes # (Auto) 0.4 Thou/mm3 (0.0-0.8); Monocytes % (Auto) 10 % (0-12); Neutrophils # (Auto) 3.2 Thou/mm3 (1.8-7.7); Neutrophils % (Auto) 73 % (37-80); Nucleated Red Blood Cell % 0 /100 WBC (0); Platelet Count 231 Thou/mm3 (140-440); RDW Standard Deviation 51.2 fL (36.4-46.3); Red Blood Count 4.44 Miln/mm3 (4.00-5.20); White Blood Count 4.4 Thou/mm3 (3.6-11.0)
[2024-12-26 11:21] LABS: HCG,Qualitative Serum Negative
[2024-12-26 11:24] LABS: Carcinoembryonic Antigen 9.3 ng/mL (0.0-5.0)
[2024-12-26 11:26] LABS: Alanine Aminotransferase 17 U/L (10-49); Albumin, Serum 4.7 gm/dL (3.5-5.0); Alkaline Phosphatase 68 U/L (46-116); Anion Gap 7 (7-16); Aspartate Amino Transferase 15 U/L (0-34); BUN/Creatinine Ratio 15 Ratio (12-20); Bilirubin,Total 0.3 mg/dL (0.3-1.2); Blood Urea Nitrogen 9 mg/dL (9-23); Calcium 9.9 mg/dL (8.3-10.6); Calcium (Corrected) 9.9 mg/dL (8.5-10.1); Carbon Dioxide 26.4 mMol/L (20.0-31.0); Chloride 107 mMol/L (98-107); Creatinine (Component) 0.6 mg/dL (0.6-1.3); Globulin 2.4 gm/dL (2.3-3.5); Glucose 111 mg/dL (74-106); Osmolality,Calculated 279 (275-295); Potassium 3.8 mMol/L (3.4-5.1); Sodium 140 mMol/L (136-145); Total Protein 7.1 gm/dL (5.7-8.2); eGFR > 60 See Note
[2025-01-09 12:37] LABS: Basophils % (Auto) 0 % (0-2.5); Eosinophils # (Auto) 0.1 Thou/mm3 (0.0-0.5); Eosinophils % (Auto) 1 % (0-10); Hematocrit 36.1 % (36.0-46.0); Hemoglobin 11.8 g/dL (12.0-16.0); Immature Granulocytes % (Auto) 0 % (0-0); Immature Granulocytes Auto 0.01 Thou/mm3 (0.00-0.00); Lymphocytes # (Auto) 0.7 Thou/mm3 (1.0-4.8); Lymphocytes % (Auto) 15 % (10-50); Mean Corpuscular HGB Conc 32.7 g/dl (31.0-37.0); Mean Corpuscular Hemoglobin 27.1 pg (25.0-35.0); Mean Corpuscular Volume 83 fL (80-100); Monocytes # (Auto) 0.5 Thou/mm3 (0.0-0.8); Monocytes % (Auto) 11 % (0-12); Neutrophils # (Auto) 3.5 Thou/mm3 (1.8-7.7); Neutrophils % (Auto) 73 % (37-80); Nucleated Red Blood Cell % 0 /100 WBC (0); Platelet Count 188 Thou/mm3 (140-440); RDW Standard Deviation 50.8 fL (36.4-46.3); Red Blood Count 4.35 Miln/mm3 (4.00-5.20); White Blood Count 4.9 Thou/mm3 (3.6-11.0)
[2025-01-09 12:49] LABS: HCG,Qualitative Serum Negative
[2025-01-09 12:57] LABS: Alanine Aminotransferase 18 U/L (10-49); Albumin, Serum 4.5 gm/dL (3.5-5.0); Albumin/Globulin Ratio 1.8 (1.2-2.2); Alkaline Phosphatase 63 U/L (46-116); Anion Gap 9 (7-16); Aspartate Amino Transferase 21 U/L (0-34); BUN/Creatinine Ratio 22 Ratio (12-20); Bilirubin,Total 0.3 mg/dL (0.3-1.2); Blood Urea Nitrogen 13 mg/dL (9-23); Calcium 10.4 mg/dL (8.3-10.6); Calcium (Corrected) 10.4 mg/dL (8.5-10.1); Chloride 105 mMol/L (98-107); Creatinine (Component) 0.6 mg/dL (0.6-1.3); Globulin 2.5 gm/dL (2.3-3.5); Glucose 98 mg/dL (74-106); Osmolality,Calculated 281 (275-295); Potassium 3.8 mMol/L (3.4-5.1); Sodium 141 mMol/L (136-145); eGFR > 60 See Note
--- NOTE | 2025-01-22 01:06 | CTCFLWUP_ITS ---
Patient: MAGDA LIU : 1980 Page 6 of 7 FOLLOW UP NOTE DATE OF SERVICE: 01/03/2025 NAME: MAGDA LIU ACCOUNT: [id number] : 1980 AGE: 44 INTERVAL HISTORY: Patient says she is doing better now. She had no fever. ONCOLOGY HISTORY: DIAGNOSIS: Most likely stage IV (pT2, pN 0, MX) adenocarcinoma of the sigmoid colon with multiple pulmonary lesions. MMR proficient. Dickinson syndrome panel testing negative S/p radiation therapy to the pelvis due to obstructive symptoms as well as bleeding (01/24/2024 - 02/25/2024) Status post sigmoid colectomy and colostomy bag placement on 04/24/2024. Mother had colon cancer in her 70s. TREATMENT HISTORY: Care?Plan Start?Date Cycle Day Intent IRON?DEXtran 07/20/2024 1 15 Maintenance mFOLFOX-6?-?5FU?400?+?2400?CIV,?LVR?400,OXALIplat?85 09/19/2024 1 14 Palliative HISTORY OF PRESENT ILLNESS: Ms. Liu was recently diagnosed with sigmoid colon adenocarcinoma. Due to obstructive symptoms she was treated with radiation therapy followed by sigmoid colectomy and colostomy bag placement. She also had CT scans done prior to the surgery which showed multiple lesions in the lungs. 01/06/2024:: Due to pelvic pain, bleeding, obstructive symptoms Dr. Drake has decided to treat Ms. Liu with chemoradiation using Xeloda as a radiosensitizing agent. As per the notes chemo could not be started. 01/24/2024 - 02/25/2024: Ms. Liu has received 5000 cGy of radiation therapy to the pelvis under Dr. Drake's supervision.04/24/2024: Ms. Liu had resection of the distal sigmoid colon and sigmoid colostomy. At the time of surgery she was found to have a complete obstruction resulting large bowel obstruction. Today she is feeling much better. She is gaining weight at this time. Denies any abdominal pain. Denies any cough, chest pain or shortness of breath. Ambulating well without any help. Has good appetite and good energy levels. HISTORY OF PRESENT ILLNESS: Magda Liu is a 43-year-old S[place] speaking female with history of type 2 diabetes currently on metformin without any secondary sequelae has the following oncology history. 11/02/2023: Ms. Liu had colonoscopy done for recurrent rectal bleeding, rectal pain and recurrent diarrhea. 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 Augmentin - 500-125 mg 1 tab twice Daily 2. Emend - 125 mg As directed 3. Sancuso - 3.1 mg/24 hour 1 Patch weekly 4. ZOFRAN ODT - 8 mg 1 tab As directed Medications Last Reconciled by Jael Kraus MA on 01/03/2025 ALLERGIES: Compazine; Compazine; morphine REVIEW OF SYSTEMS: A complete 14-point review of systems was performed and is negative except as noted in interval history. PHYSICAL EXAMINATION: VITAL SIGNS: Temperature?96.5, B/P?135/95, Oxygen?Saturation?99% Weight?168?lbs (Change?since?12/29/24:?-0.8?lbs) PAIN: 0 - No pain ECOG Performance Status: 2 - Symptomatic; ambulatory; capable of self-care; >50% of waking hrs. not in bed EYE: Conjunctivae is pink. MOUTH: Oral cavity is dry. CHEST: Clear to auscultation. No wheezes or rales audible. CARDIAC: Rhythm regular, no murmurs or gallops present. ABDOMEN: Soft. No hepatomegaly. No splenomegaly. Colostomy bag in place functioning well EXTREMITIES: No pedal edema or cyanosis. LABORATORY DATA: I have personally reviewed and interpreted each of the patient?s relevant lab tests, abnormal findings are below: Date 12/27/24 01/09/25 ??WHITE?BLOOD?COUNT?(Thou/mm3) ? 4.9 ??RED?BLOOD?COUNT?(Miln/mm3) ? 4.35 ??HEMOGLOBIN?(gm/dl) ? 11.8?L ??HEMATOCRIT?(%) ? 36.1 ??PLATELET?COUNT?(Thou/mm3) ? 188 ??NEUTROPHILS?%,?AUTO?(%) ? 73 ??LYMPH?%,?AUTO?(%) ? 15 ??NEUTROPHILS,?AUTO?(Thou/mm3) ? 3.5 ??GLUCOSE,RANDOM?(mg/dL) 129 98 ??BLOOD?UREA?NITROGEN?(mg/dL) ? 13 ??CREATININE?(mg/dL) ? 0.60 ??SODIUM?(mmol/L) ? 141 ??POTASSIUM?(mmol/L) ? 3.8 ??CHLORIDE?(mmol/L) ? 105 ??CrCl?(CandG)?(ml/min) ? 122.49 ??AST/SGOT?(Unit/L) ? 21 ??ALT/SGPT?(Unit/L) ? 18 ??ALKALINE?PHOSPHATASE?(Unit/L) ? 63 ??BILIRUBIN,?TOTAL?(mg/dL) ? 0.3 ??PROTEIN?TOTAL?(gm/dl) ? 7.0 ??ALBUMIN,?SERUM?(gm/dl) ? 4.5 ??GLOBULIN?(gm/dl) ? 2.5 ??ALBUMIN/GLOBULIN?RATIO ? 1.8 ??CALCIUM,?SERUM?(mg/dL) ? 10.4 ??CALCIUM?SERUM?(CORRECTED)?(mg/dL) ? 10.4?H ??CEA?(O*)?(ng/ml) ? 7.0?H ASSESSMENT/PLAN: Stage IV T2 N0 M1 adenocarcinoma of the sigmoid colon with multiple pulmonary nodules biopsy negative and liver lesion biopsy positive MMR proficient Dickinson syndrome negative S/p radiation to the pelvis due to obstructive symptom as well as bleeding from 01/24/2024 to 02/25/2024 Status post sigmoid colectomy and colostomy bag placement on 04/24/2024 Liver lesion was positive for colon cancer Patient is on chemotherapy with FOLFOX Completed cycle 7 tolerating with the diarrhea but weight is stable CEA is 7 CBC CMP CEA PET CT scan to see response to treatment As patient's fever has subsided Advised to do prechemo check labs and okay to proceed with chemotherapy Patient to continue antibiotics for at least 7 days CBC CMP and okay to proceed with treatment ORDERS: Order # Description [id number] Follow Up Appointment [id number] Infusion 5 Hours [id number] Discontinue CIV Pump [id number] CBC + Comprehensive Metabolic Panel + CEA [id number] Lab Appointment [id number] Follow Up Appointment [id number] Infusion 5 Hours [id number] Discontinue CIV Pump [id number] CBC + Comprehensive Metabolic Panel + CEA [id number] Lab Appointment [id number] Follow Up Appointment [id number] Infusion 5 Hours [id number] Discontinue CIV Pump [id number] CBC + Comprehensive Metabolic Panel + CEA [id number] Lab Appointment [id number] Follow Up Appointment [id number] Infusion 5 Hours [id number] Discontinue CIV Pump [id number] CBC + Comprehensive Metabolic Panel + CEA [id number] Lab Appointment [id number] Follow Up Appointment [id number] Infusion 5 Hours [id number] Discontinue CIV Pump [id number] CBC + Comprehensive Metabolic Panel + CEA [id number] Lab Appointment [id number] Follow Up Appointment RETURN TO CLINIC: 4 weeks BILLING AND COMPLIANCE: I reviewed external records from providers outside my specialty as summarized above. I spent a total of 50 minutes on this patient?s care on the day of their visit excluding time spent related to any billed procedures. This time includes time spent with the patient as well as time spent documenting in the medical record, reviewing patients records and tests, obtaining history, placing orders, communicating with other healthcare professionals, counseling the patient, family or caregiver, and/or care coordination for the diagnoses above. Electronically Signed by: {Object.Sanct_ID*PnP.NameFL@M}, {Object.Sanct_ID*PnP.Suffix@U} D: {Object.Sanct_Date} T: {Object.Sanct_Time} CC: PCP: No Primary/family, Physician Referring: Helder Rodrigues This document was completed utilizing speech recognition software. Grammatical errors, random word insertions, pronoun errors, and incomplete sentences are an occasional consequence of this system due to software limitations, ambient noise, and hardware issues. Any formal questions or concerns about the content, text or information contained within the body of this dictation should be directly addressed to the provider for clarification.
== END 2025-01-15 23:59 | disposition home or self-care (01) ==
LOC: SCTC 08:25
PROVIDERS: Referring Provider Internal Medicine Hematology & Oncology; Visit Provider Internal Medicine Hematology & Oncology
DX: Z51.11 Encounter for antineoplastic chemotherapy (principal); C19 Malignant neoplasm of rectosigmoid junction; C78.7 Secondary malignant neoplasm of liver and intrahepatic bile duct; R91.8 Other nonspecific abnormal finding of lung field; Z92.3 Personal history of irradiation; Z90.49 Acquired absence of other specified parts of digestive tract; Z93.3 Colostomy status
CPT/HCPCS: 36591; 80053; 82378; 84703; 85025; 96366; 96367; 96368; 96411; 96413; 96415; 96416; 99213; A4216; J0640; J1100; J1453; J1642; J2405; J7050; J9190; J9263; G0463

== ENCOUNTER 2025-01-30 14:58 | Outpatient (RCR) | payer MEDICAID, SELFPAY ==
[2025-01-23 10:35] LABS: Basophils % (Auto) 0 % (0-2.5); Eosinophils # (Auto) 0.1 Thou/mm3 (0.0-0.5); Eosinophils % (Auto) 2 % (0-10); Hematocrit 36.3 % (36.0-46.0); Immature Granulocytes % (Auto) 0 % (0-0); Immature Granulocytes Auto 0.01 Thou/mm3 (0.00-0.00); Lymphocytes # (Auto) 0.6 Thou/mm3 (1.0-4.8); Lymphocytes % (Auto) 16 % (10-50); Mean Corpuscular HGB Conc 33.1 g/dl (31.0-37.0); Mean Corpuscular Hemoglobin 27.9 pg (25.0-35.0); Mean Corpuscular Volume 84 fL (80-100); Monocytes # (Auto) 0.5 Thou/mm3 (0.0-0.8); Monocytes % (Auto) 12 % (0-12); Neutrophils # (Auto) 2.8 Thou/mm3 (1.8-7.7); Neutrophils % (Auto) 70 % (37-80); Nucleated Red Blood Cell % 0 /100 WBC (0); Platelet Count 174 Thou/mm3 (140-440); RDW Standard Deviation 52.4 fL (36.4-46.3)
[2025-01-23 11:03] LABS: Alanine Aminotransferase 24 U/L (10-49); Albumin, Serum 4.4 gm/dL (3.5-5.0); Albumin/Globulin Ratio 1.8 (1.2-2.2); Alkaline Phosphatase 68 U/L (46-116); Anion Gap 9 (7-16); Aspartate Amino Transferase 23 U/L (0-34); BUN/Creatinine Ratio 22 Ratio (12-20); Bilirubin,Total 0.3 mg/dL (0.3-1.2); Blood Urea Nitrogen 13 mg/dL (9-23); Calcium 9.6 mg/dL (8.3-10.6); Calcium (Corrected) 9.6 mg/dL (8.5-10.1); Carbon Dioxide 25.7 mMol/L (20.0-31.0); Carcinoembryonic Antigen 5.7 ng/mL (0.0-5.0); Chloride 105 mMol/L (98-107); Creatinine (Component) 0.6 mg/dL (0.6-1.3); Globulin 2.4 gm/dL (2.3-3.5); Glucose 108 mg/dL (74-106); Osmolality,Calculated 280 (275-295); Potassium 3.8 mMol/L (3.4-5.1); Sodium 140 mMol/L (136-145); Total Protein 6.8 gm/dL (5.7-8.2); eGFR > 60 See Note
[2025-01-23 11:33] LABS: HCG,Qualitative Serum Negative
== END 2025-02-14 23:59 | disposition home or self-care (01) ==
LOC: SCTC 14:58
PROVIDERS: Internal Medicine Hematology & Oncology; PCP Family Medicine; Referring Provider Family Medicine; Visit Provider Radiology Therapeutic Radiology
DX: Z51.11 Encounter for antineoplastic chemotherapy (principal); C19 Malignant neoplasm of rectosigmoid junction; C78.7 Secondary malignant neoplasm of liver and intrahepatic bile duct; Z92.3 Personal history of irradiation; R91.1 Solitary pulmonary nodule
CPT/HCPCS: 36591; 80053; 82378; 84703; 85025; 96367; 96368; 96411; 96413; 96415; 96416; 99212; A4216; J0640; J1100; J1453; J1642; J2405; J7050; J9190; J9263; G0463

== ENCOUNTER 2025-02-26 11:01 | Outpatient (RCR) | payer MEDICAID, SELFPAY ==
[2025-02-23 11:10] LABS: Basophils % (Auto) 0 % (0-2.5); Eosinophils # (Auto) 0.1 Thou/mm3 (0.0-0.5); Eosinophils % (Auto) 1 % (0-10); Hematocrit 35.7 % (36.0-46.0); Hemoglobin 11.9 g/dL (12.0-16.0); Immature Granulocytes % (Auto) 1 % (0-0); Immature Granulocytes Auto 0.03 Thou/mm3 (0.00-0.00); Lymphocytes # (Auto) 0.7 Thou/mm3 (1.0-4.8); Lymphocytes % (Auto) 13 % (10-50); Mean Corpuscular HGB Conc 33.3 g/dl (31.0-37.0); Mean Corpuscular Hemoglobin 27.5 pg (25.0-35.0); Mean Corpuscular Volume 82 fL (80-100); Monocytes # (Auto) 0.6 Thou/mm3 (0.0-0.8); Monocytes % (Auto) 11 % (0-12); Neutrophils # (Auto) 4.1 Thou/mm3 (1.8-7.7); Neutrophils % (Auto) 74 % (37-80); Nucleated Red Blood Cell % 0 /100 WBC (0); Platelet Count 261 Thou/mm3 (140-440); RDW Standard Deviation 47.3 fL (36.4-46.3); Red Blood Count 4.33 Miln/mm3 (4.00-5.20); White Blood Count 5.5 Thou/mm3 (3.6-11.0)
[2025-02-23 11:37] LABS: Carcinoembryonic Antigen 7.3 ng/mL (0.0-5.0)
[2025-02-23 11:41] LABS: Alanine Aminotransferase 24 U/L (10-49); Albumin, Serum 4.6 gm/dL (3.5-5.0); Albumin/Globulin Ratio 1.8 (1.2-2.2); Alkaline Phosphatase 69 U/L (46-116); Anion Gap 9 (7-16); Aspartate Amino Transferase 24 U/L (0-34); BUN/Creatinine Ratio 22 Ratio (12-20); Bilirubin,Total 0.4 mg/dL (0.3-1.2); Blood Urea Nitrogen 13 mg/dL (9-23); Calcium 9.4 mg/dL (8.3-10.6); Calcium (Corrected) 9.4 mg/dL (8.5-10.1); Carbon Dioxide 25.9 mMol/L (20.0-31.0); Chloride 106 mMol/L (98-107); Creatinine (Component) 0.6 mg/dL (0.6-1.3); Globulin 2.6 gm/dL (2.3-3.5); Glucose 102 mg/dL (74-106); Osmolality,Calculated 281 (275-295); Potassium 3.9 mMol/L (3.4-5.1); Sodium 141 mMol/L (136-145); Total Protein 7.2 gm/dL (5.7-8.2); eGFR > 60 See Note
--- NOTE | 2025-02-26 13:19 | CTCFLWUP_ITS ---
Patient: ALDO LIU : 1980 Page 2 of 2 FOLLOW UP NOTE DATE OF SERVICE: 02/26/2025 NAME: ALDO LIU ACCOUNT: [id number] : 1980 AGE: 44 INTERVAL HISTORY: Patient doing well . [facility] for possible ablation of liver lesion. Patient states she is scheduled for her treatment on the liver. Patient's chemotherapy is held. Patient is very concerned about her stage IV colon cancer. Patient gets very nervous and sees she wants to reverse her advanced stage cancer no change in appetite or weight loss. Did not had any major side effects from chemotherapy. ONCOLOGY HISTORY: DIAGNOSIS: Most likely stage IV (pT2, pN 0, MX) adenocarcinoma of the sigmoid colon with multiple pulmonary lesions. MMR proficient. Dickinson syndrome panel testing negative S/p radiation therapy to the pelvis due to obstructive symptoms as well as bleeding (01/24/2024 - 02/25/2024) Status post sigmoid colectomy and colostomy bag placement on 04/24/2024. Mother had colon cancer in her 70s. TREATMENT HISTORY: Care?Plan Start?Date Cycle Day Intent IRON?DEXtran 07/20/2024 1 15 Maintenance mFOLFOX-6?-?5FU?400?+?2400?CIV,?LVR?400,OXALIplat?85 09/19/2024 1 14 Palliative HISTORY OF PRESENT ILLNESS: Ms. Liu was recently diagnosed with sigmoid colon adenocarcinoma. Due to obstructive symptoms she was treated with radiation therapy followed by sigmoid colectomy and colostomy bag placement. She also had CT scans done prior to the surgery which showed multiple lesions in the lungs. 01/06/2024:: Due to pelvic pain, bleeding, obstructive symptoms Dr. Drake has decided to treat Ms. Liu with chemoradiation using Xeloda as a radiosensitizing agent. As per the notes chemo could not be started. 01/24/2024 - 02/25/2024: Ms. Liu has received 5000 cGy of radiation therapy to the pelvis under Dr. Drake's supervision.04/24/2024: Ms. Liu had resection of the distal sigmoid colon and sigmoid colostomy. At the time of surgery she was found to have a complete obstruction resulting large bowel obstruction. Today she is feeling much better. She is gaining weight at this time. Denies any abdominal pain. Denies any cough, chest pain or shortness of breath. Ambulating well without any help. Has good appetite and good energy levels. HISTORY OF PRESENT ILLNESS: Aldo Liu is a 44-year-old S[place] speaking female with history of type 2 diabetes currently on metformin without any secondary sequelae has the following oncology history. 11/02/2023: Ms. Liu had colonoscopy done for recurrent rectal bleeding, rectal pain and recurrent diarrhea. 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 Emend - 125 mg As directed 2. metFORMIN - 500 mg 2 tab Daily 3. Sancuso - 3.1 mg/24 hour 1 Patch weekly 4. ZOFRAN ODT - 8 mg 1 tab As directed Medications Last Reconciled by Aldo Nam MD on 02/26/2025 ALLERGIES: Compazine; Compazine; morphine REVIEW OF SYSTEMS: A complete 14-point review of systems was performed and is negative except as noted in interval history. PHYSICAL EXAMINATION: VITAL SIGNS: Temperature?98, B/P?125/79, Oxygen?Saturation?97% Weight?172?lbs (Change?since?02/23/25:?1?lbs) PAIN: 0 - No pain ECOG Performance Status: 0 - Asymptomatic and fully active EYE: Conjunctivae is pink. MOUTH: Oral cavity is dry. CHEST: Clear to auscultation. No wheezes or rales audible. CARDIAC: Rhythm regular, no murmurs or gallops present. ABDOMEN: Soft. No hepatomegaly. No splenomegaly. Colostomy bag in place functioning well EXTREMITIES: No pedal edema or cyanosis. LABORATORY DATA: I have personally reviewed and interpreted each of the patient?s relevant lab tests, abnormal findings are below: Date 01/23/25 02/23/25 ??WHITE?BLOOD?COUNT?(Thou/mm3) 4.0 5.5 ??RED?BLOOD?COUNT?(Miln/mm3) 4.30 4.33 ??HEMOGLOBIN?(gm/dl) 12.0 11.9?L ??HEMATOCRIT?(%) 36.3 35.7?L ??PLATELET?COUNT?(Thou/mm3) 174 261 ??NEUTROPHILS?%,?AUTO?(%) 70 74 ??LYMPH?%,?AUTO?(%) 16 13 ??NEUTROPHILS,?AUTO?(Thou/mm3) 2.8 4.1 ??GLUCOSE,RANDOM?(mg/dL) ? 102 ??BLOOD?UREA?NITROGEN?(mg/dL) ? 13 ??CREATININE?(mg/dL) ? 0.60 ??SODIUM?(mmol/L) ? 141 ??POTASSIUM?(mmol/L) ? 3.9 ??CHLORIDE?(mmol/L) ? 106 ??CrCl?(CandG)?(ml/min) ? 124.38 ??AST/SGOT?(Unit/L) ? 24 ??ALT/SGPT?(Unit/L) ? 24 ??ALKALINE?PHOSPHATASE?(Unit/L) ? 69 ??BILIRUBIN,?TOTAL?(mg/dL) ? 0.4 ??PROTEIN?TOTAL?(gm/dl) ? 7.2 ??ALBUMIN,?SERUM?(gm/dl) ? 4.6 ??GLOBULIN?(gm/dl) ? 2.6 ??ALBUMIN/GLOBULIN?RATIO ? 1.8 ??CALCIUM,?SERUM?(mg/dL) ? 9.4 ??CALCIUM?SERUM?(CORRECTED)?(mg/dL) ? 9.4 ??CEA?(O*)?(ng/ml) ? 7.3?H ASSESSMENT/PLAN: Stage IV T2 N0 M1 adenocarcinoma of the sigmoid colon with multiple pulmonary nodules biopsy negative and liver lesion biopsy positive MMR proficient Dickinson syndrome negative S/p radiation to the pelvis due to obstructive symptom as well as bleeding from 01/24/2024 to 02/25/2024 Status post sigmoid colectomy and colostomy bag placement on 04/24/2024 Liver lesion was positive for colon cancer Patient is on chemotherapy with FOLFOX Liver lesion is 1.3 cm and pulmonary nodule 2.3 cm as noted on last CT scan. Will repeat PET in April after patient had received treatment for her liver lesion CEA stable Will do [facility] RTC in 2 months Advised to follow-up with [facility] Resume chemotherapy once treatment completed at [facility] as per recommendations of the surgeon. Patient to come back from [facility] and get appointment for her treatment . ORDERS: Order # Description [id number] + CEA [id number] CBC + Comprehensive Metabolic Panel + CEA [id number] Lab Appointment [id number] Follow Up Appointment [id number] Infusion 5 Hours [id number] Discontinue CIV Pump [id number] CBC + Comprehensive Metabolic Panel + CEA [id number] Lab Appointment [id number] Follow Up Appointment [id number] Infusion 5 Hours [id number] Discontinue CIV Pump [id number] CBC + Comprehensive Metabolic Panel + CEA [id number] Lab Appointment [id number] Follow Up Appointment [id number] PET/CT of Skull to mid-thigh for Restaging [id number] Follow Up 2 Months [id number] Comprehensive Metabolic Panel - 12 + CBC with Auto Diff [id number] RETURN TO CLINIC: BILLING AND COMPLIANCE: I reviewed external records from providers outside my specialty as summarized above. I spent a total of 50 minutes on this patient?s care on the day of their visit excluding time spent related to any billed procedures. This time includes time spent with the patient as well as time spent documenting in the medical record, reviewing patients records and tests, obtaining history, placing orders, communicating with other healthcare professionals, counseling the patient, family or caregiver, and/or care coordination for the diagnoses above. Electronically Signed by: Helder Rodrigues MD T: 1:17 PM CC: PCP: Colten Paulson Referring: Colten Paulson This document was completed utilizing speech recognition software. Grammatical errors, random word insertions, pronoun errors, and incomplete sentences are an occasional consequence of this system due to software limitations, ambient noise, and hardware issues. Any formal questions or concerns about the content, text or information contained within the body of this dictation should be directly addressed to the provider for clarification.
== END 2025-03-17 23:59 | disposition home or self-care (01) ==
LOC: SCTC 11:01
PROVIDERS: PCP Family Medicine; Referring Provider Family Medicine; Visit Provider Internal Medicine Hematology & Oncology
DX: C18.7 Malignant neoplasm of sigmoid colon (principal); C78.7 Secondary malignant neoplasm of liver and intrahepatic bile duct; Z90.49 Acquired absence of other specified parts of digestive tract; R91.8 Other nonspecific abnormal finding of lung field; Z93.3 Colostomy status
CPT/HCPCS: 36591; 80053; 82378; 85025; 99212; A4216; J1642; G0463

== ENCOUNTER 2025-05-15 15:16 | Outpatient (RCR) | payer MEDICAID, SELFPAY ==
[2025-05-15 16:00] LABS: Basophils # (Auto) 0.0 Thou/mm3 (0.0-0.2); Basophils % (Auto) 0 % (0-2.5); Eosinophils # (Auto) 0.1 Thou/mm3 (0.0-0.5); Eosinophils % (Auto) 1 % (0-10); Hematocrit 34.7 % (36.0-46.0); Hemoglobin 11.1 g/dL (12.0-16.0); Immature Granulocytes Auto 0.04 Thou/mm3 (0.00-0.00); Lymphocytes # (Auto) 1.2 Thou/mm3 (1.0-4.8); Lymphocytes % (Auto) 17 % (10-50); Mean Corpuscular HGB Conc 32.0 g/dl (31.0-37.0); Mean Corpuscular Hemoglobin 26.1 pg (25.0-35.0); Mean Corpuscular Volume 82 fL (80-100); Monocytes # (Auto) 0.4 Thou/mm3 (0.0-0.8); Monocytes % (Auto) 5 % (0-12); Neutrophils # (Auto) 5.4 Thou/mm3 (1.8-7.7); Neutrophils % (Auto) 76 % (37-80); Nucleated Red Blood Cell # 0.00 Thou/mm3 (0.00-0.00); Nucleated Red Blood Cell % 0 /100 WBC (0); Platelet Count 302 Thou/mm3 (140-440); RDW Standard Deviation 40.8 fL (36.4-46.3); Red Blood Count 4.25 Miln/mm3 (4.00-5.20); White Blood Count 7.0 Thou/mm3 (3.6-11.0)
[2025-05-15 16:23] LABS: Alanine Aminotransferase 14 U/L (10-49); Albumin, Serum 4.4 gm/dL (3.5-5.0); Albumin/Globulin Ratio 1.5 (1.2-2.2); Alkaline Phosphatase 66 U/L (46-116); Anion Gap 8 (7-16); Aspartate Amino Transferase 19 U/L (0-34); BUN/Creatinine Ratio 21 Ratio (12-20); Bilirubin,Total 0.3 mg/dL (0.3-1.2); Blood Urea Nitrogen 15 mg/dL (9-23); Calcium 9.7 mg/dL (8.3-10.6); Calcium (Corrected) 9.7 mg/dL (8.5-10.1); Carbon Dioxide 28.8 mMol/L (20.0-31.0); Chloride 102 mMol/L (98-107); Creatinine (Component) 0.7 mg/dL (0.6-1.3); Globulin 3.0 gm/dL (2.3-3.5); Glucose 125 mg/dL (74-106); Osmolality,Calculated 279 (275-295); Potassium 3.9 mMol/L (3.4-5.1); Sodium 139 mMol/L (136-145); Total Protein 7.4 gm/dL (5.7-8.2); eGFR > 60 See Note
[2025-05-15 16:25] LABS: Carcinoembryonic Antigen 25.9 ng/mL (0.0-5.0)
== END 2025-05-17 23:59 | disposition home or self-care (01) ==
LOC: SCTC 15:16
PROVIDERS: PCP Family Medicine; Referring Provider Family Medicine; Visit Provider Internal Medicine Hematology & Oncology
DX: C18.7 Malignant neoplasm of sigmoid colon (principal); C78.7 Secondary malignant neoplasm of liver and intrahepatic bile duct; Z92.3 Personal history of irradiation; Z90.49 Acquired absence of other specified parts of digestive tract
CPT/HCPCS: 36591; 80053; 82378; 85025; A4216; J1642

== ENCOUNTER → 2025-05-18 | Outpatient (CLI) | payer MEDICAID, SELFPAY ==
[2025-05-07 17:55] LABS: HCG Qualitative,Urine Negative
[2025-05-16 17:43] LABS: HCG Qualitative,Urine Negative
--- NOTE | 2025-05-18 13:00 | XR_ITS ---
EXAMINATION: PET/CT FUSION SKULL TO THIGH EXAM DATE AND TIME: May 18, 2025 1316 hours Comparison November 16, 2024 PET/CT scan, MRI abdomen August 16, 2024, PET CT scan July 06, 2024 INDICATIONS: Diagnosis malignant neoplasm colon, 20 x 19 mm enhancing hepatic metastasis on MR abdomen August 16, 2024 and on MRI abdomen December 21, 2024 CTDI:vol (mGy) 6.02 DLP: (mGycm) 550 PROCEDURE: 15.2 mCi FDG was administered intravenously To allow for distribution and uptake of radiotracer, the patient was allowed to rest quietly in a shielded room. Imaging was performed on an integrated 16-slice PET/CT scanner, with scanning from the skull base to the mid thigh. Serum blood glucose at the time of the injection was measured 119 mg/dL. CT scanning was performed without oral or intravenous contrast material. FINDINGS: Head and Neck: There is no brianna hypermetabolism in the neck. The visualized portions of the brain are normal in appearance on CT. Chest: Progression of pulmonary nodular metastatic disease, including: Pulmonary mass indistinct margins right upper lobe 33 mm compared to 22 mm on November 16, 2024 22 mm pulmonary nodule indistinct margins compared with 13 mm November 16, 2024 Multiple new pulmonary nodules Pulmonary nodule left lower lobe indistinct margins 21 mm compared with 14 mm on November 16, 2024 30 mm hypermetabolic right lobe liver lesion compared to [address] scan November 16, 2024 Abdomen and Pelvis: Non hypermetabolic to 4 mm periaortic lymph nodes Musculoskeletal: Marrow uptake is within normal range. IMPRESSION: Marked progression of pulmonary nodular metastatic disease compared with PET CT scan November 16, 2024 Hypermetabolic right lobe metastatic liver lesion measures 30 mm compared to [address] scan November 16, 2024
== END | disposition home or self-care (01) ==
LOC: CDIM 12:12
PROVIDERS: PCP Physician Assistant; Referring Provider Internal Medicine Hematology & Oncology; Visit Provider Internal Medicine Hematology & Oncology
DX: C78.00 Secondary malignant neoplasm of unspecified lung (principal); C78.7 Secondary malignant neoplasm of liver and intrahepatic bile duct; C19 Malignant neoplasm of rectosigmoid junction; Z32.00 Encounter for pregnancy test, result unknown
CPT/HCPCS: 78815; 81025; A9552

== ENCOUNTER 2025-06-06 08:19 | Outpatient (RCR) | payer MEDICAID, SELFPAY ==
--- NOTE | 2025-05-28 00:41 | CTCFLWUP_ITS ---
Patient: ALDO LIU : 1980 Page 6 of 8 FOLLOW UP NOTE DATE OF SERVICE: 05/21/2025 NAME: ALDO LIU ACCOUNT: [id number] : 1980 AGE: 44 INTERVAL HISTORY: Aldo, a female with metastatic cancer, presented for follow-up after recent radio surgery at [facility]. PET-CT showed disease progression with tumor growth from 28mm to 30mm in liver, plus two additional lung spots and increased liver lesion. Tumor marker was elevated, and February Netera test was high at 50. A new chemotherapy regimen was planned with education scheduled today and treatment to begin within 1-2 weeks pending insurance approval. Follow-up was scheduled for July 21 with recommendation for visits every 6-8 weeks. Subjective Chief Complaint Cancer progression in liver and lungs, tumor growth from 28mm to 30mm History of Present Illness Aldo Holcomb presents for follow-up of her cancer treatment. Her last visit was 3 months ago. Recent PET-CT scan results show progression of cancer in the liver and lungs. The cancer has grown from 28mm to 30mm despite previous surgery. The patient's tumor marker is elevated, with two additional spots detected in the lungs and an increased liver spot. The patient recently underwent surgery at [facility]. She has not yet resumed chemotherapy following the surgical intervention. The Netera test conducted in February showed a high result of 50. Aldo is due to start a new chemotherapy regimen, which will differ from her previous treatment. She requires chemo education before initiating the new treatment plan. Medications and Supplements - Chemotherapy - Previously administered - Discontinued - New chemotherapy - To be started Objective Laboratory, Imaging, and Diagnostic Test Results - PET-CT scan (date not specified): - Cancer progression in liver and lungs - Tumor size increased from 28mm to 30mm - Tumor marker (date not specified): - Elevated (specific value not provided) - Netera test (February 2025): - Result: 50 (high) ONCOLOGY HISTORY:?[facility] Hx? 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 MMR proficient. Dickinson syndrome panel testing negative S/p radiation therapy to the pelvis due to obstructive symptoms as well as bleeding (01/24/2024 - 02/25/2024) Status post sigmoid colectomy and colostomy bag placement on 04/24/2024. Mother had colon cancer in her 70s. TREATMENT HISTORY: Care?Plan Start?Date Cycle Day Intent IRON?DEXtran 07/20/2024 1 15 Maintenance mFOLFOX-6?-?5FU?400?+?2400?CIV,?LVR?400,OXALIplat?85 09/19/2024 1 14 Palliative FOLFIRI?+?Bevacizumab?5mg/kg 05/21/2025 1 14 Palliative HISTORY OF PRESENT ILLNESS: Ms. Liu was recently diagnosed with sigmoid colon adenocarcinoma. Due to obstructive symptoms she was treated with radiation therapy followed by sigmoid colectomy and colostomy bag placement. She also had CT scans done prior to the surgery which showed multiple lesions in the lungs. 01/06/2024:: Due to pelvic pain, bleeding, obstructive symptoms Dr. Drake has decided to treat Ms. Liu with chemoradiation using Xeloda as a radiosensitizing agent. As per the notes chemo could not be started. 01/24/2024 - 02/25/2024: Ms. Liu has received 5000 cGy of radiation therapy to the pelvis under Dr. Drake's supervision.04/24/2024: Ms. Liu had resection of the distal sigmoid colon and sigmoid colostomy. At the time of surgery she was found to have a complete obstruction resulting large bowel obstruction. Today she is feeling much better. She is gaining weight at this time. Denies any abdominal pain. Denies any cough, chest pain or shortness of breath. Ambulating well without any help. Has good appetite and good energy levels. HISTORY OF PRESENT ILLNESS: Aldo Liu is a 44-year-old SPA speaking female with history of type 2 diabetes currently on metformin without any secondary sequelae has the following oncology history. 11/02/2023: Ms. Liu had colonoscopy done for recurrent rectal bleeding, rectal pain and recurrent diarrhea. 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 Emend - 125 mg As directed 2. metFORMIN - 500 mg 2 tab Daily 3. Sancuso - 3.1 mg/24 hour 1 Patch weekly 4. ZOFRAN ODT - 8 mg 1 tab As directed?Palabra Meds? Medications Last Reconciled by Aldo Nam MD on 05/21/2025 ALLERGIES: Compazine; Compazine; morphine REVIEW OF SYSTEMS: A complete 14-point review of systems was performed and is negative except as noted in interval history. PHYSICAL EXAMINATION:?[facility] PE? VITAL SIGNS: Temperature?99.3, B/P?119/78, Oxygen?Saturation?97% Weight?166?lbs (Change?since?05/15/25:?-5.2?lbs) PAIN: 0 - No pain EYE: Conjunctivae is pink. MOUTH: Oral cavity is dry. CHEST: Clear to auscultation. No wheezes or rales audible. CARDIAC: Rhythm regular, no murmurs or gallops present. ABDOMEN: Soft. No hepatomegaly. No splenomegaly. Colostomy bag in place functioning well EXTREMITIES: No pedal edema or cyanosis. LABORATORY DATA: I have personally reviewed and interpreted each of the patient?s relevant lab tests, abnormal findings are below: Date 02/23/25 05/15/25 ??WHITE?BLOOD?COUNT?(Thou/mm3) 5.5 7.0 ??RED?BLOOD?COUNT?(Miln/mm3) 4.33 4.25 ??HEMOGLOBIN?(gm/dl) 11.9?L 11.1?L ??HEMATOCRIT?(%) 35.7?L 34.7?L ??PLATELET?COUNT?(Thou/mm3) 261 302 ??NEUTROPHILS?%,?AUTO?(%) 74 76 ??LYMPH?%,?AUTO?(%) 13 17 ??NEUTROPHILS,?AUTO?(Thou/mm3) 4.1 5.4 ??GLUCOSE,RANDOM?(mg/dL) ? 125?H ??BLOOD?UREA?NITROGEN?(mg/dL) ? 15 ??CREATININE?(mg/dL) ? 0.70 ??SODIUM?(mmol/L) ? 139 ??POTASSIUM?(mmol/L) ? 3.9 ??CHLORIDE?(mmol/L) ? 102 ??CrCl?(CandG)?(ml/min) ? 106.67 ??AST/SGOT?(Unit/L) ? 19 ??ALT/SGPT?(Unit/L) ? 14 ??ALKALINE?PHOSPHATASE?(Unit/L) ? 66 ??BILIRUBIN,?TOTAL?(mg/dL) ? 0.3 ??PROTEIN?TOTAL?(gm/dl) ? 7.4 ??ALBUMIN,?SERUM?(gm/dl) ? 4.4 ??GLOBULIN?(gm/dl) ? 3.0 ??ALBUMIN/GLOBULIN?RATIO ? 1.5 ??CALCIUM,?SERUM?(mg/dL) ? 9.7 ??CALCIUM?SERUM?(CORRECTED)?(mg/dL) ? 9.7 ??CEA?(O*)?(ng/ml) ? 25.9?H ASSESSMENT/PLAN:?Kings Rodrigues Assessment/Plan? Stage IV T2 N0 M1 adenocarcinoma of the sigmoid colon with multiple pulmonary nodules biopsy negative and liver lesion biopsy positive MMR proficient Dickinson syndrome negative S/p radiation to the pelvis due to obstructive symptom as well as bleeding from 01/24/2024 to 02/25/2024 Status post sigmoid colectomy and colostomy bag placement on 04/24/2024 Liver lesion was positive for colon cancer Aldo Holcomb presents with progression of cancer in the liver and lungs, as evidenced by recent PET-CT scan results, requiring initiation of new chemotherapy regimen. Metastatic Cancer (Liver and Lung) Assessment: PET-CT scan results indicate cancer progression in the liver and lungs. The primary tumor has grown from 28mm to 30mm despite previous surgery. Tumor marker is elevated, with two additional spots detected in the lungs and an increased liver lesion. Netera test in February was high at 50. The patient's last visit was 3 months ago, which is longer than the recommended follow-up interval of 6-8 weeks. Plan: - Initiate new chemotherapy regimen FOLFIRI with bevacizumab - Schedule appointment for chemotherapy education today - Start chemotherapy within 1-2 weeks, pending insurance approval - Download Womai geeta for result tracking - Follow-up appointment scheduled for July 21 - Recommend follow-up visits every 6-8 weeks ORDERS: Order # Description [id number] Follow Up Appointment [id number] CBC + Comprehensive Metabolic Panel + CEA [id number] Lab Appointment [id number] Infusion 5 Hours [id number] Infusion 1 Hour [id number] Discontinue CIV Pump [id number] Follow Up Appointment [id number] CBC + Comprehensive Metabolic Panel + CEA [id number] Lab Appointment [id number] Infusion 5 Hours [id number] Infusion 1 Hour [id number] Discontinue CIV Pump [id number] Follow Up Appointment [id number] CBC + Comprehensive Metabolic Panel + CEA [id number] Lab Appointment [id number] Infusion 5 Hours [id number] Infusion 1 Hour [id number] Discontinue CIV Pump [id number] Follow Up Appointment [id number] CBC + Comprehensive Metabolic Panel + CEA [id number] Lab Appointment [id number] Infusion 5 Hours [id number] Infusion 1 Hour [id number] Discontinue CIV Pump [id number] Follow Up Appointment [id number] CBC + Comprehensive Metabolic Panel + CEA [id number] Lab Appointment [id number] Infusion 5 Hours [id number] Infusion 1 Hour [id number] Discontinue CIV Pump [id number] Follow Up Appointment [id number] CBC + Comprehensive Metabolic Panel + CEA [id number] Lab Appointment [id number] Infusion 5 Hours [id number] Infusion 1 Hour [id number] Discontinue CIV Pump [id number] Follow Up Appointment [id number] CBC + Comprehensive Metabolic Panel + CEA [id number] Lab Appointment [id number] Infusion 5 Hours [id number] Infusion 1 Hour [id number] Discontinue CIV Pump [id number] Follow Up Appointment [id number] CBC + Comprehensive Metabolic Panel + CEA [id number] Lab Appointment [id number] Infusion 5 Hours [id number] Infusion 1 Hour [id number] Discontinue CIV Pump [id number] Follow Up Appointment [id number] CBC + Comprehensive Metabolic Panel + CEA [id number] Lab Appointment [id number] Infusion 5 Hours [id number] Infusion 1 Hour [id number] Discontinue CIV Pump [id number] Follow Up Appointment [id number] CBC + Comprehensive Metabolic Panel + CEA [id number] Lab Appointment [id number] Infusion 5 Hours [id number] Infusion 1 Hour [id number] Discontinue CIV Pump [id number] Follow Up Appointment [id number] CBC + Comprehensive Metabolic Panel + CEA [id number] Lab Appointment [id number] Infusion 5 Hours [id number] Infusion 1 Hour [id number] Discontinue CIV Pump [id number] Follow Up Appointment MD RETURN TO CLINIC: I reviewed the diagnosis, prognosis, and recommended treatment/procedure options with the patient (and/or their legal medical center representative), including the potential benefits, risks, side effects and alternative therapies. We also discussed the option of no treatment and the possibility of clinical trial participation, if applicable. All questions were addressed, and they demonstrated understanding. They provided informed consent to proceed with the proposed plan of care. BILLING AND COMPLIANCE: I reviewed external records from providers outside my specialty as summarized above. I spent a total of 50 minutes on this patient?s care on the day of their visit excluding time spent related to any billed procedures. This time includes time spent with the patient as well as time spent documenting in the medical record, reviewing patients records and tests, obtaining history, placing orders, communicating with other healthcare professionals, counseling the patient, family or caregiver, and/or care coordination for the diagnoses above. Electronically Signed by: Helder Rodrigues MD T: 12:39 AM CC: PCP: Colten Paulson Referring: Colten Paulson This document was completed utilizing speech recognition software. Grammatical errors, random word insertions, pronoun errors, and incomplete sentences are an occasional consequence of this system due to software limitations, ambient noise, and hardware issues. Any formal questions or concerns about the content, text or information contained within the body of this dictation should be directly addressed to the provider for clarification.
[2025-06-01 11:28] LABS: Collection Type, Urine Voided; WBC,Urine 0 /hpf (0-5)
[2025-06-01 11:38] LABS: Basophils # (Auto) 0.0 Thou/mm3 (0.0-0.2); Basophils % (Auto) 1 % (0-2.5); Eosinophils # (Auto) 0.2 Thou/mm3 (0.0-0.5); Eosinophils % (Auto) 3 % (0-10); Hematocrit 36.9 % (36.0-46.0); Hemoglobin 11.6 g/dL (12.0-16.0); Immature Granulocytes Auto 0.02 Thou/mm3 (0.00-0.00); Lymphocytes # (Auto) 1.0 Thou/mm3 (1.0-4.8); Lymphocytes % (Auto) 17 % (10-50); Mean Corpuscular HGB Conc 31.4 g/dl (31.0-37.0); Mean Corpuscular Hemoglobin 25.5 pg (25.0-35.0); Mean Corpuscular Volume 81 fL (80-100); Monocytes # (Auto) 0.6 Thou/mm3 (0.0-0.8); Monocytes % (Auto) 9 % (0-12); Neutrophils # (Auto) 4.2 Thou/mm3 (1.8-7.7); Neutrophils % (Auto) 70 % (37-80); Nucleated Red Blood Cell # 0.00 Thou/mm3 (0.00-0.00); Nucleated Red Blood Cell % 0 /100 WBC (0); Platelet Count 264 Thou/mm3 (140-440); RDW Standard Deviation 42.4 fL (36.4-46.3); Red Blood Count 4.55 Miln/mm3 (4.00-5.20); White Blood Count 6.1 Thou/mm3 (3.6-11.0)
[2025-06-01 11:45] LABS: Bilirubin,Urine Negative (Negative); Blood,Urine Negative (Negative); Clarity,Urine Clear (Clear/Hazy); Color,Urine Lt-Yellow (Lt Yel-Yel); Glucose, Urine Negative (Negative); Ketones,Urine Negative (Negative); Leukocyte Esterase,Urine Negative (Negative); Nitrite,Urine Negative (Negative); PH,Urine 5.5 (5.0-7.0); Protein,Urine Negative (Neg - Trace); RBC,Urine 1 /hpf (0-3); Specific Gravity,Urine 1.014 (1.001-1.035); Squamous Epithelial Cell,Urine 1 /hpf (0-5); Urobilinogen,Urine Negative mg/dL (0.0-1.0)
[2025-06-01 11:52] LABS: HCG Qualitative,Urine Negative
[2025-06-01 11:53] LABS: Carcinoembryonic Antigen 38.5 ng/mL (0.0-5.0)
[2025-06-01 11:54] LABS: Alanine Aminotransferase 12 U/L (10-49); Albumin, Serum 4.5 gm/dL (3.5-5.0); Albumin/Globulin Ratio 1.8 (1.2-2.2); Alkaline Phosphatase 70 U/L (46-116); Anion Gap 11 (7-16); Aspartate Amino Transferase 23 U/L (0-34); BUN/Creatinine Ratio 12 Ratio (12-20); Bilirubin,Total 0.3 mg/dL (0.3-1.2); Blood Urea Nitrogen 7 mg/dL (9-23); Calcium 10.0 mg/dL (8.3-10.6); Calcium (Corrected) 10.0 mg/dL (8.5-10.1); Carbon Dioxide 26.6 mMol/L (20.0-31.0); Chloride 104 mMol/L (98-107); Creatinine (Component) 0.6 mg/dL (0.6-1.3); Globulin 2.5 gm/dL (2.3-3.5); Glucose 95 mg/dL (74-106); Osmolality,Calculated 281 (275-295); Potassium 4.0 mMol/L (3.4-5.1); Sodium 142 mMol/L (136-145); Total Protein 7.0 gm/dL (5.7-8.2); eGFR > 60 See Note
== END 2025-06-17 23:59 | disposition home or self-care (01) ==
LOC: SCTC 08:19
PROVIDERS: PCP Family Medicine; Referring Provider Family Medicine; Visit Provider Internal Medicine Hematology & Oncology
DX: Z51.11 Encounter for antineoplastic chemotherapy (principal); C19 Malignant neoplasm of rectosigmoid junction; C78.7 Secondary malignant neoplasm of liver and intrahepatic bile duct; C78.02 Secondary malignant neoplasm of left lung; C78.01 Secondary malignant neoplasm of right lung; Z92.3 Personal history of irradiation; Z90.49 Acquired absence of other specified parts of digestive tract; Z93.3 Colostomy status
CPT/HCPCS: 36591; 80053; 81001; 81025; 82378; 85025; 96367; 96368; 96375; 96411; 96413; 96415; 96416; 96417; 99212; A4216; J0461; J0640; J1100; J1200; J1453; J1642; J2405; J7040; J7050; J7060; J9190; J9206; G0463

== ENCOUNTER 2025-08-09 08:00 | Outpatient (RCR) | payer MEDICAID, SELFPAY ==
[2025-07-24 08:54] LABS: Collection Type, Urine Voided
[2025-07-24 09:08] LABS: Basophils # (Auto) 0.0 Thou/mm3 (0.0-0.2); Basophils % (Auto) 1 % (0-2.5); Eosinophils # (Auto) 0.1 Thou/mm3 (0.0-0.5); Eosinophils % (Auto) 3 % (0-10); Hematocrit 37.7 % (36.0-46.0); Hemoglobin 12.5 g/dL (12.0-16.0); Immature Granulocytes Auto 0.01 Thou/mm3 (0.00-0.00); Lymphocytes # (Auto) 1.0 Thou/mm3 (1.0-4.8); Lymphocytes % (Auto) 25 % (10-50); Mean Corpuscular HGB Conc 33.2 g/dl (31.0-37.0); Mean Corpuscular Hemoglobin 26.3 pg (25.0-35.0); Mean Corpuscular Volume 79 fL (80-100); Monocytes # (Auto) 0.4 Thou/mm3 (0.0-0.8); Monocytes % (Auto) 10 % (0-12); Neutrophils # (Auto) 2.6 Thou/mm3 (1.8-7.7); Neutrophils % (Auto) 62 % (37-80); Nucleated Red Blood Cell # 0.00 Thou/mm3 (0.00-0.00); Nucleated Red Blood Cell % 0 /100 WBC (0); Platelet Count 222 Thou/mm3 (140-440); RDW Standard Deviation 46.3 fL (36.4-46.3); Red Blood Count 4.76 Miln/mm3 (4.00-5.20); White Blood Count 4.2 Thou/mm3 (3.6-11.0)
[2025-07-24 09:11] LABS: HCG,Qualitative Serum Negative
[2025-07-24 09:16] LABS: Alanine Aminotransferase 17 U/L (10-49); Albumin, Serum 4.1 gm/dL (3.5-5.0); Albumin/Globulin Ratio 1.6 (1.2-2.2); Alkaline Phosphatase 72 U/L (46-116); Anion Gap 9 (7-16); Aspartate Amino Transferase 19 U/L (0-34); BUN/Creatinine Ratio 17 Ratio (12-20); Bilirubin,Total 0.3 mg/dL (0.3-1.2); Blood Urea Nitrogen 12 mg/dL (9-23); Calcium 9.5 mg/dL (8.3-10.6); Calcium (Corrected) 9.5 mg/dL (8.5-10.1); Carbon Dioxide 27.5 mMol/L (20.0-31.0); Chloride 106 mMol/L (98-107); Creatinine (Component) 0.7 mg/dL (0.6-1.3); Globulin 2.5 gm/dL (2.3-3.5); Glucose 139 mg/dL (74-106); Osmolality,Calculated 284 (275-295); Potassium 3.9 mMol/L (3.4-5.1); Sodium 142 mMol/L (136-145); Total Protein 6.6 gm/dL (5.7-8.2); eGFR > 60 See Note
[2025-07-24 09:19] LABS: Carcinoembryonic Antigen 32.9 ng/mL (0.0-5.0)
[2025-07-24 09:31] LABS: Bacteria,Urine Rare; Bilirubin,Urine Negative (Negative); Blood,Urine Trace (Negative); Clarity,Urine Clear (Clear/Hazy); Color,Urine Lt-Yellow (Lt Yel-Yel); Glucose, Urine Negative (Negative); Ketones,Urine Negative (Negative); Leukocyte Esterase,Urine Positive (Negative); Nitrite,Urine Negative (Negative); PH,Urine 5.0 (5.0-7.0); Protein,Urine Negative (Neg - Trace); RBC,Urine 1 /hpf (0-3); Specific Gravity,Urine 1.020 (1.001-1.035); Squamous Epithelial Cell,Urine < 1 /hpf (0-5); Urobilinogen,Urine Negative mg/dL (0.0-1.0); WBC,Urine 2 /hpf (0-5)
--- NOTE | 2025-07-31 06:29 | CTCFLWUP_ITS ---
Patient: MAGDA LIU : 1980 Page 6 of 8 FOLLOW UP NOTE DATE OF SERVICE: 07/30/2025 NAME: MAGDA LIU ACCOUNT: [id number] : 1980 AGE: 44 INTERVAL HISTORY: Patient is 44-year-old woman with a adenocarcinoma of sigmoid colon and had metastatic disease to the lung and liver. Patient had radiofrequency ablation of the liver lesion and had progression and was recently changed on treatment. Patient is on FOLFIRI and tolerating well. Patient's recent naterra shows CT DNA level of 38 from previous 50.23. Patient has completed 4 cycles of FOLFIRI with bevacizumab. Patient do not have any complaints and tolerating well . 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 MMR proficient. Dickinson syndrome panel testing negative S/p radiation therapy to the pelvis due to obstructive symptoms as well as bleeding (01/24/2024 - 02/25/2024) Status post sigmoid colectomy and colostomy bag placement on 04/24/2024. Mother had colon cancer in her 70s. TREATMENT HISTORY: Care?Plan Start?Date Cycle Day Intent IRON?DEXtran 07/20/2024 1 15 Maintenance mFOLFOX-6?-?5FU?400?+?2400?CIV,?LVR?400,OXALIplat?85 09/19/2024 1 14 Palliative FOLFIRI?+?Bevacizumab?5mg/kg 06/04/2025 1 14 Palliative HISTORY OF PRESENT ILLNESS: Ms. Liu was recently diagnosed with sigmoid colon adenocarcinoma. Due to obstructive symptoms she was treated with radiation therapy followed by sigmoid colectomy and colostomy bag placement. She also had CT scans done prior to the surgery which showed multiple lesions in the lungs. 01/06/2024:: Due to pelvic pain, bleeding, obstructive symptoms Dr. Drake has decided to treat Ms. Liu with chemoradiation using Xeloda as a radiosensitizing agent. As per the notes chemo could not be started. 01/24/2024 - 02/25/2024: Ms. Liu has received 5000 cGy of radiation therapy to the pelvis under Dr. Drake's supervision.04/24/2024: Ms. Liu had resection of the distal sigmoid colon and sigmoid colostomy. At the time of surgery she was found to have a complete obstruction resulting large bowel obstruction. Today she is feeling much better. She is gaining weight at this time. Denies any abdominal pain. Denies any cough, chest pain or shortness of breath. Ambulating well without any help. Has good appetite and good energy levels. HISTORY OF PRESENT ILLNESS: Magda Liu is a 44-year-old SPA speaking female with history of type 2 diabetes currently on metformin without any secondary sequelae has the following oncology history. 11/02/2023: Ms. Liu had colonoscopy done for recurrent rectal bleeding, rectal pain and recurrent diarrhea. 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 Emend - 125 mg As directed 2. metFORMIN - 500 mg 2 tab Daily 3. Sancuso - 3.1 mg/24 hour 1 Patch weekly 4. ZOFRAN ODT - 8 mg 1 tab As directed Medications Last Reconciled by Magda Nam MD on 07/30/2025 ALLERGIES: Compazine; Compazine; morphine REVIEW OF SYSTEMS: A complete 14-point review of systems was performed and is negative except as noted in interval history. PHYSICAL EXAMINATION: VITAL SIGNS: Temperature?97.6, B/P?126/84, Oxygen?Saturation?98% Weight?168?lbs (Change?since?07/24/25:?-5.4?lbs) PAIN: 0 - No pain ECOG Performance Status: None EYE: Conjunctivae is pink. MOUTH: Oral cavity is dry. CHEST: Clear to auscultation. No wheezes or rales audible. CARDIAC: Rhythm regular, no murmurs or gallops present. ABDOMEN: Soft. No hepatomegaly. No splenomegaly. Colostomy bag in place functioning well EXTREMITIES: No pedal edema or cyanosis. LABORATORY DATA: I have personally reviewed and interpreted each of the patient?s relevant lab tests, abnormal findings are below: Date 07/09/25 07/24/25 ??WHITE?BLOOD?COUNT?(Thou/mm3) ? 4.2 ??RED?BLOOD?COUNT?(Miln/mm3) ? 4.76 ??HEMOGLOBIN?(gm/dl) ? 12.5 ??HEMATOCRIT?(%) ? 37.7 ??PLATELET?COUNT?(Thou/mm3) ? 222 ??NEUTROPHILS?%,?AUTO?(%) ? 62 ??LYMPH?%,?AUTO?(%) ? 25 ??NEUTROPHILS,?AUTO?(Thou/mm3) ? 2.6 ??GLUCOSE,RANDOM?(mg/dL) 89 139?H ??BLOOD?UREA?NITROGEN?(mg/dL) 7?L 12 ??CREATININE?(mg/dL) 0.60 0.70 ??SODIUM?(mmol/L) 142 142 ??POTASSIUM?(mmol/L) 3.8 3.9 ??CHLORIDE?(mmol/L) 104 106 ??CrCl?(CandG)?(ml/min) 125.29 107.33 ??AST/SGOT?(Unit/L) 20 19 ??ALT/SGPT?(Unit/L) 21 17 ??ALKALINE?PHOSPHATASE?(Unit/L) 74 72 ??BILIRUBIN,?TOTAL?(mg/dL) 0.2?L 0.3 ??PROTEIN?TOTAL?(gm/dl) 6.6 6.6 ??ALBUMIN,?SERUM?(gm/dl) 4.2 4.1 ??GLOBULIN?(gm/dl) 2.4 2.5 ??ALBUMIN/GLOBULIN?RATIO 1.8 1.6 ??CALCIUM,?SERUM?(mg/dL) 10.0 9.5 ??CALCIUM?SERUM?(CORRECTED)?(mg/dL) 10.0 9.5 ??CEA?(O*)?(ng/ml) ? 32.9?H ASSESSMENT/PLAN: Stage IV T2 N0 M1 adenocarcinoma of the sigmoid colon with multiple pulmonary nodules biopsy negative and liver lesion biopsy positive MMR proficient Dickinson syndrome negative S/p radiation to the pelvis due to obstructive symptom as well as bleeding from 01/24/2024 to 02/25/2024 Status post sigmoid colectomy and colostomy bag placement on 04/24/2024 Liver lesion was positive for colon cancer PET-CT scan results indicate cancer progression in the liver and lungs. The primary tumor has grown from 28mm to 30mm despite previous surgery. Tumor marker is elevated, with two additional spots detected in the lungs and an increased liver lesion. Netera test in February was high at 50. The patient's last visit was 3 months ago, which is longer than the recommended follow-up interval of 6-8 weeks. Patient is on chemotherapy regimen FOLFIRI with bevacizumab Completed [address] scan at the end of 6 treatments Follow-up on naterra and tumor markers which are showing response Weight is stable ORDERS: Order # Description [id number] CEA + Comprehensive Metabolic Panel - 12 + CBC with Auto Diff [id number] CT Scan + Chest + Abdomen and Pelvis + With W/O Contrast [id number] MD Follow Up 2 Months RETURN TO CLINIC: I reviewed the diagnosis, prognosis, and recommended treatment/procedure options with the patient (and/or their legal senior customer service representative), including the potential benefits, risks, side effects and alternative therapies. We also discussed the option of no treatment and the possibility of clinical trial participation, if applicable. All questions were addressed, and they demonstrated understanding. They provided informed consent to proceed with the proposed plan of care. BILLING AND COMPLIANCE: I reviewed external records from providers outside my specialty as summarized above. I spent a total of 50 minutes on this patient?s care on the day of their visit excluding time spent related to any billed procedures. This time includes time spent with the patient as well as time spent documenting in the medical record, reviewing patients records and tests, obtaining history, placing orders, communicating with other healthcare professionals, counseling the patient, family or caregiver, and/or care coordination for the diagnoses above. Electronically Signed by: {Object.Sanct_ID*PnP.NameFL@M}, {Object.Sanct_ID*PnP.Suffix@U} D: {Object.Sanct_Date} T: {Object.Sanct_Time} CC: PCP: Zoë Hernandez Referring: Zoë Hernandez This document was completed utilizing speech recognition software. Grammatical errors, random word insertions, pronoun errors, and incomplete sentences are an occasional consequence of this system due to software limitations, ambient noise, and hardware issues. Any formal questions or concerns about the content, text or information contained within the body of this dictation should be directly addressed to the provider for clarification.
[2025-08-06 15:21] LABS: Collection Type, Urine Voided
[2025-08-06 15:30] LABS: Basophils # (Auto) 0.0 Thou/mm3 (0.0-0.2); Basophils % (Auto) 0 % (0-2.5); Eosinophils # (Auto) 0.2 Thou/mm3 (0.0-0.5); Eosinophils % (Auto) 3 % (0-10); Hematocrit 36.8 % (36.0-46.0); Hemoglobin 12.0 g/dL (12.0-16.0); Immature Granulocytes Auto 0.01 Thou/mm3 (0.00-0.00); Lymphocytes # (Auto) 1.3 Thou/mm3 (1.0-4.8); Lymphocytes % (Auto) 24 % (10-50); Mean Corpuscular HGB Conc 32.6 g/dl (31.0-37.0); Mean Corpuscular Hemoglobin 25.8 pg (25.0-35.0); Mean Corpuscular Volume 79 fL (80-100); Monocytes # (Auto) 0.5 Thou/mm3 (0.0-0.8); Monocytes % (Auto) 9 % (0-12); Neutrophils # (Auto) 3.5 Thou/mm3 (1.8-7.7); Neutrophils % (Auto) 64 % (37-80); Nucleated Red Blood Cell # 0.00 Thou/mm3 (0.00-0.00); Nucleated Red Blood Cell % 0 /100 WBC (0); Platelet Count 217 Thou/mm3 (140-440); RDW Standard Deviation 49.7 fL (36.4-46.3); Red Blood Count 4.65 Miln/mm3 (4.00-5.20); White Blood Count 5.5 Thou/mm3 (3.6-11.0)
[2025-08-06 15:35] LABS: Bilirubin,Urine Negative (Negative); Blood,Urine Negative (Negative); Clarity,Urine Clear (Clear/Hazy); Color,Urine Colorless (Lt Yel-Yel); Glucose, Urine Negative (Negative); Ketones,Urine Negative (Negative); Leukocyte Esterase,Urine Negative (Negative); Nitrite,Urine Negative (Negative); PH,Urine 5.5 (5.0-7.0); Protein,Urine Negative (Neg - Trace); RBC,Urine 1 /hpf (0-3); Specific Gravity,Urine 1.011 (1.001-1.035); Squamous Epithelial Cell,Urine 1 /hpf (0-5); Urobilinogen,Urine Negative mg/dL (0.0-1.0); WBC,Urine < 1 /hpf (0-5)
[2025-08-06 15:45] LABS: HCG,Qualitative Serum Negative
[2025-08-06 15:46] LABS: Alanine Aminotransferase 16 U/L (10-49); Albumin, Serum 4.6 gm/dL (3.5-5.0); Albumin/Globulin Ratio 1.9 (1.2-2.2); Alkaline Phosphatase 77 U/L (46-116); Anion Gap 9 (7-16); Aspartate Amino Transferase 25 U/L (0-34); BUN/Creatinine Ratio 17 Ratio (12-20); Bilirubin,Total 0.2 mg/dL (0.3-1.2); Blood Urea Nitrogen 12 mg/dL (9-23); Calcium 9.8 mg/dL (8.3-10.6); Calcium (Corrected) 9.8 mg/dL (8.5-10.1); Carbon Dioxide 28.0 mMol/L (20.0-31.0); Chloride 102 mMol/L (98-107); Creatinine (Component) 0.7 mg/dL (0.6-1.3); Globulin 2.4 gm/dL (2.3-3.5); Glucose 129 mg/dL (74-106); Osmolality,Calculated 279 (275-295); Potassium 3.9 mMol/L (3.4-5.1); Sodium 139 mMol/L (136-145); Total Protein 7.0 gm/dL (5.7-8.2); eGFR > 60 See Note
[2025-08-06 15:48] LABS: Carcinoembryonic Antigen 25.6 ng/mL (0.0-5.0)
== END 2025-08-17 23:59 | disposition home or self-care (01) ==
LOC: SCTC 08:00
PROVIDERS: PCP Specialist; Referring Provider Specialist; Visit Provider Internal Medicine Hematology & Oncology
DX: Z51.11 Encounter for antineoplastic chemotherapy (principal); C19 Malignant neoplasm of rectosigmoid junction; C78.02 Secondary malignant neoplasm of left lung; C78.01 Secondary malignant neoplasm of right lung; C78.7 Secondary malignant neoplasm of liver and intrahepatic bile duct
CPT/HCPCS: 36591; 80053; 81001; 82378; 84703; 85025; 96367; 96368; 96375; 96411; 96413; 96415; 96416; 96417; 99212; A4216; J0461; J0640; J1100; J1434; J1642; J2405; J3490; J7050; J7060; J9190; J9206; Q5126; G0463

== ENCOUNTER 2025-08-17 01:21 | Emergency (ER) | payer MEDICAID, SELFPAY ==
[2025-08-17 01:22] VITALS: BMI 29.2
[2025-08-17 01:34] VITALS: BP 153/99; PULSE 79; RESP 19; TEMP 36.7; O2SAT 98
--- NOTE | 2025-08-17 01:40 | EDNOTE_ITS ---
ED Skin Abcess FB-RME/HPI General Chief complaint: Skin/Abscess/Foreign Body Stated complaint: RASH THAT KOCH AND ITCHY X1 WK Time Seen by Provider: 08/17/25 01:34 Arrival date/time: 08/17/25 01:21 44F with history of DM and colon cancer presents to ED with 1 week of itchy and painful rash on R back that goes to ab. Patient went to PCP yesterday who states it is shingles and sent unknown Rx to pharmacy. Patient came here for second opinion. Limitations: no limitations Related Data Home Medications ?Medication ?Instructions ?Recorded ?Confirmed metformin 500 mg tablet 500 mg PO BID 06/15/2409/06 Previous Rx's ?Medication ?Instructions ?Recorded ibuprofen 600 mg tablet 600 mg PO Q8H PRN pain #30 t abs 11/11/24 Allergies Allergy/AdvReac Type Severity Reaction Status Date / Time acetaminophen (From Vicodin) Allergy Severe Hives Verified 08/17/25 01:22 hydrocodone (From Vicodin) Allergy Severe Hives Verified 08/17/25 01:22 morphine Allergy Severe Anxiety Verified 08/17/25 01:22 prochlorperazine Allergy Severe ANXITEY Verified 08/17/25 01:22 Review of Systems Review of Systems Systems Reviewed: All systems reviewed, normal except as documented Integumentary/Breasts Skin/Breast: Reports as per HPI, Reports pruritus, Reports rash and Reports skin pain Past Medical History Past Medical History NEUROLOGIC: Positive Neurological Disorders and Seizures (x1 in 2003 with spinal after ); Negative Cerebrovascular Accident, Transient Ischemic Attacks (TIA), Dementia, Alzheimer's Disease, Parkinson's Disease, Brain Tumor, Meningitis, Epilepsy, Multiple Sclerosis, Cerebral Palsy, Amyotrophic Lateral Sclerosis (ALS/Cora Gehrig's), Guillain-Bolt Syndrome, Spina Bifida, Paralysis, Peripheral Neuropathy, Akbar's Palsy, Subdural Hematoma, Migraine, Head Trauma, Spinal Cord Injury or Traumatic Brain Injury CARDIAC: Positive Cardiac Disorders and Varicose Veins; Negative Myocardial Infarction, Cardiac Arrhythmia, Atrial Fibrillation, Angina, Heart Murmur, Coronary Artery Disease, Atherosclerotic Heart Disease, Peripheral Vascular Disease, Hypercholesterolemia, Aneurysm, Congestive Heart Failure, Congenital Heart Disease, Valvular Heart Disease, Rheumatic Fever, Cardiomyopathy, Edema, Pericarditis, Cellulitis, Deep Vein Thrombosis, Hypertension or Hypotension RESPIRATORY: Negative Chronic Obstructive Pulmonary Disease (COPD), Asthma, B ronchitis, Emphysema, Pneumonia, Pulmonary Fibrosis, Cystic Fibrosis, Tuberculosis, Pulmonary Embolism, Pulmonary Edema or Sleep Apnea GASTROINTESTINAL: Positive Gastrointestinal Disorders (having a liver biopsy Wednesday) and Colorectal Cancer; Negative Hepatitis, Cirrhosis, Pancreatitis, Celiac Disease, Gall Bladder Disease, Gastrointestinal Bleed, Esophageal Varices, Evans's Esophagus, Colit is, Ulcerative Colitis, Diverticulitis, Diverticulosis, Ulcer, Irritable Bowel, Crohn's Disease, Obstructive Bowel, Hiatal Hernia, Hemorrhoids, Gastroesophageal Reflux Disease or Obesity GENITOURINARY: Negative Genitourinary Disorders, Renal Disease, Kidney Stones, Polycystic Kidney Disease, Neurogenic Bladder, Inguinal Hernia, Dialysis, Prostate Cancer or Benign Prostatic Hyperplasia REPRODUCTIVE: Positive Previous Pregnancies; Negative Breast Cancer, Endometriosis, Genital Herpes, Gonorrhea, Pelvic Inflammatory Disease, Syphilis, Testicular Cancer or Uterine Prolapse MUSCULOSKELETAL: Negative Musculoskeletal Disorders, Muscular Dystrophy, Myasthenia Gravis, Marfan's Syndrome, Bone Cancer, Arthritis, Rheumatoid Arthritis, Osteoporosis, Degenerative Disk Disease, Gout, Scoliosis, Carpal T unnel Syndrome, Fibromyalgia, Fractures, Degenerative Joint Disease, Osteomyelitis or Poliovirus ENT: Negative Cataracts, Glaucoma, Blind, Retinal Detachment, Macular Degeneration, Ear Infection, Deafness, Head Trauma or Eye Prosthesis ENDOCRINE: Positive Endocrine Disorders and Diabetes Mellitus Type 2; Negative Diabetes Mellitus Type 1, Hypoglycemia, Arias's Syndrome, Misha's Disease, Hyperthyroidism, Hypothyroidism, Parathyroid Disease, Pituitary Disease, Systemic Lupus Erythematosus, Syndrome of Inappropriate Antidiuretic Hormone (SIADH), Adrenal Disease or Graves' Disease HEMATOLOGIC: Positive Anemia; Negative Blood Disorders, Leukemia, Hemophilia, Thalassemia, Sickle Cell Disease or Clotting Problems PSYCHO/SOCIAL: Positive Depression (no meds) and Anxiety; Negative Psychiatric Problems, Schizophrenia, Recreational Drug Use, Bipolar Disorder, Behavior Problems, Self-Mutilation, Attention Deficit Disorder, Attention Deficit Hyperactivity Disorder, Depression, Post Traumatic Stress Disorder or Eating Disorder OTHER HISTORY: Positive Hospitalization (stomach issues), Anesthesia Reactions (had a seizure after spinal), Chemotherapy (COLON CANCER 2023), Radiation Therapy (COLON CANCER 2023), Chicken Pox, Measles, Mumps, Cancer and Colorectal Cancer; Negative Autoimmune Disease, Down Syndrome, Autism, Developmental Delay, Shingles, Falls, Blood Transfusions, Blood Transfusion Reaction, Organ Transplant, Hyperbaric Therapy, MRSA, VRSA, Vancomycin-Resistant Enterococci, Human Immunodeficiency Virus (HIV), Rubella ([place] Measles), Pertussis, Clostr idium Difficile, Breast Cancer, Cervical Cancer, Lung Cancer (TO BE DETERMINED WITH BIOPSY), Ovarian Cancer, Prostate Cancer or Testicular Cancer Family History FAMILY HISTORY: Positive Family Cardiac Disorders (SISTER CABG), Family Gastrointestinal Problems (MOM COLON CANCER) and Family Cancer; Negative Family Psychiatric Problems, Family Respiratory Disorders, Family Aguayo rgery or Family Anesthesia Reaction Surgical History SURGICAL: Positive Abdominal Surgery, Bowel Surgery (colon resection with colostomy) and Section (X3); Negative Cardiac Surgery, Open Heart Surgery, Coronary Artery Bypass Graft, Valve Replacement, Vascular Surgery, Coronary Stent, Cardiac Catheterization, Pacemaker, Angiogram, Auto Implanted Cardiovert Defib, Carotid Endarterectomy, Endocrine Surgery, Thyroidectomy, Ear Surgery, Tympanostomy Tube, Eye Surgery, Nose Surgery, Oral Surgery, Tonsillectomy, Adenoidectomy, Cochlear Implant, Corneal Transplant, Throat Surgery, Tracheostomy, Gastric Bypass Surgery, Gastrostomy, Nephrectomy, Transurethral Resection, Joint Replacement, Amputation, Open Reduction Internal Fixation, Arthroscopy, Neurologic Surgery, Brain Shunt, Mastectomy, Lumpectomy, Hysterectomy, Tubal Ligation, Vasectomy or Organ Transplant Social History SMOKING STATUS: Never smoker SECOND HAND EXPOSURE: No ED Exam General Limitations: Present no limitations General appearance: Present alert and in no apparent distress Head Head exam: Present atraumatic Neck Neck exam: Present normal inspection, full ROM and trachea midline Chest Chest inspection: Present normal inspection and symmetric chest wall rise Neurological Exam Neurological exam: Present alert and oriented X3 Psychiatric Psychiatric exam: Present normal affect and normal mood Skin Skin exam: Present warm, dry, intact, normal color and rash Course Quality Measures none Vital Signs Vital signs: Vital Signs Temperature 98.1 F 08/17/25 01:34 Pulse Rate 79 08/17/25 01:34 Respiratory Rate 19 08/17/25 01:34 Blood Pressure 153/99 H 08/17/25 01:34 Pulse Oximetry (%) 98 08/17/25 01:34 Oxygen Delivery Method Room Air 08/17/25 01:34 O2 at 98% on RA and WNLs Skin / Abscess / Foreign Body MDM Narrative MDM Narrative:: 44F with history of DM and colon cancer presents to ED with 1 week of itchy and painful rash on R back that goes to ab. Patient went to PCP yesterday who states it is shingles and sent unknown Rx to pharmacy. Patient came here for second opinion. Physical exam reveals vesicular rash on R lower back that goes forward to pelvic area in dermatomal path. Patient is afebrile, calm, and alert. [employer] given. Patient data External records reviewed:: [facility] previous records Clinical information provided by:: patient Social determinants that could affect healthcare access:: none Patient has the following chronic illnesses:: DM and colon cancer How is presenting disease/condition affected by chronic disease/condition?: exacerbated by Evaluation data The following diagnostics were reviewed and interpreted by me:: other (specify) (none) Lab and/or radiology exams considered but not ordered:: not ordered Interpretation Summary: n/a Medications / Prescriptions Medications or Prescriptions considered but not ordered:: not ordered Medication administrations:: n/a Consultations Consultation(s) initiated? (list below): No Diagnosis Skin/Abscess Differential Diagnosis: abscess of skin or subcutaneous tissue, viral exanthem, dermatophytosis, urticaria, herpes zoster, allergic reaction to drug, cellulitis, eczema, insect bites, impetigo and contact dermatitis Most likely diagnosis given after review of the tests above:: shingles Admission Indicated Admission indicated?: not indicated Admission Request Was there a request for admission?: No Disposition Plan Disposition Plan: Discharge Discharge Attestation Discharge Attestation: The patient and all family members were given an opportunity to ask questions and understood the discharge instructions. Discharge instructions specifically effects, indications for sooner follow up or return to the emergency department, and the expected course of current diagnosis. Patient condition: Stable Discharge Plan Plan Patient Disposition: HOME (Self Care) Discharge Disposition comment: Stable Prescriptions/Referrals Prescriptions/Med Rec: No Action ibuprofen 600 mg tablet 600 mg PO Q8H PRN (Reason: pain) Qty: 30 0RF metformin 500 mg Tablet 500 mg PO BID Problem List Clinical Impression: Herpes zoster Patient/Caregiver Discharge Instructions Education Materials: ED Shingles (Herpes Zoster) Additional Instructions: Please follow-up with PCP within 24-48 hours and return immediately if symptoms worsen. Print Language: [place] Stand Alone Forms: Patient Portal Info Letter HARISH/TONY Supervising Physician HARISH/TONY Supervising Physician: Dr. Cortés
== END 2025-08-17 01:38 | disposition home or self-care (01) ==
LOC: SERX 02:38
PROVIDERS: Emergency Provider Emergency Medicine; PCP Physician Assistant
DX: B02.9 Zoster without complications (principal); E11.9 Type 2 diabetes mellitus without complications
CPT/HCPCS: 99281

== ENCOUNTER 2025-09-06 09:26 | Outpatient (RCR) | payer MEDICAID, SELFPAY ==
[2025-08-20 11:27] LABS: Basophils # (Auto) 0.0 Thou/mm3 (0.0-0.2); Basophils % (Auto) 0 % (0-2.5); Eosinophils # (Auto) 0.1 Thou/mm3 (0.0-0.5); Eosinophils % (Auto) 2 % (0-10); Hematocrit 37.7 % (36.0-46.0); Hemoglobin 12.4 g/dL (12.0-16.0); Immature Granulocytes Auto 0.02 Thou/mm3 (0.00-0.00); Lymphocytes # (Auto) 1.2 Thou/mm3 (1.0-4.8); Lymphocytes % (Auto) 25 % (10-50); Mean Corpuscular HGB Conc 32.9 g/dl (31.0-37.0); Mean Corpuscular Hemoglobin 26.3 pg (25.0-35.0); Mean Corpuscular Volume 80 fL (80-100); Monocytes # (Auto) 0.4 Thou/mm3 (0.0-0.8); Monocytes % (Auto) 9 % (0-12); Neutrophils # (Auto) 3.0 Thou/mm3 (1.8-7.7); Neutrophils % (Auto) 63 % (37-80); Nucleated Red Blood Cell # 0.00 Thou/mm3 (0.00-0.00); Nucleated Red Blood Cell % 0 /100 WBC (0); Platelet Count 204 Thou/mm3 (140-440); RDW Standard Deviation 52.7 fL (36.4-46.3); Red Blood Count 4.71 Miln/mm3 (4.00-5.20); White Blood Count 4.8 Thou/mm3 (3.6-11.0)
[2025-08-20 11:38] LABS: HCG,Qualitative Serum Negative
[2025-08-20 11:43] LABS: Alanine Aminotransferase 37 U/L (10-49); Albumin, Serum 4.6 gm/dL (3.5-5.0); Albumin/Globulin Ratio 2.0 (1.2-2.2); Alkaline Phosphatase 68 U/L (46-116); Anion Gap 11 (7-16); Aspartate Amino Transferase 31 U/L (0-34); BUN/Creatinine Ratio 19 Ratio (12-20); Bilirubin,Total 0.3 mg/dL (0.3-1.2); Blood Urea Nitrogen 13 mg/dL (9-23); Calcium 9.8 mg/dL (8.3-10.6); Calcium (Corrected) 9.8 mg/dL (8.5-10.1); Carbon Dioxide 26.5 mMol/L (20.0-31.0); Chloride 105 mMol/L (98-107); Creatinine (Component) 0.7 mg/dL (0.6-1.3); Globulin 2.3 gm/dL (2.3-3.5); Glucose 118 mg/dL (74-106); Osmolality,Calculated 284 (275-295); Potassium 3.9 mMol/L (3.4-5.1); Sodium 142 mMol/L (136-145); Total Protein 6.9 gm/dL (5.7-8.2); eGFR > 60 See Note
[2025-08-20 11:45] LABS: Carcinoembryonic Antigen 21.9 ng/mL (0.0-5.0)
[2025-08-21 08:29] LABS: Collection Type, Urine Voided
[2025-08-21 08:56] LABS: Bilirubin,Urine Negative (Negative); Blood,Urine Negative (Negative); Color,Urine Yellow (Lt Yel-Yel); Glucose, Urine Negative (Negative); Ketones,Urine Negative (Negative); Leukocyte Esterase,Urine Positive (Negative); Nitrite,Urine Negative (Negative); PH,Urine 5.5 (5.0-7.0); Protein,Urine Trace (Neg - Trace); RBC,Urine 2 /hpf (0-3); Specific Gravity,Urine 1.031 (1.001-1.035); Squamous Epithelial Cell,Urine 3 /hpf (0-5); Urobilinogen,Urine Negative mg/dL (0.0-1.0); WBC,Urine 2 /hpf (0-5)
[2025-08-21 09:01] LABS: Clarity,Urine Cloudy (Clear/Hazy)
[2025-09-03 16:02] LABS: Collection Type, Urine Voided
[2025-09-03 16:06] LABS: Basophils # (Auto) 0.0 Thou/mm3 (0.0-0.2); Basophils % (Auto) 0 % (0-2.5); Eosinophils # (Auto) 0.1 Thou/mm3 (0.0-0.5); Eosinophils % (Auto) 2 % (0-10); Hematocrit 36.7 % (36.0-46.0); Hemoglobin 11.9 g/dL (12.0-16.0); Immature Granulocytes Auto 0.01 Thou/mm3 (0.00-0.00); Lymphocytes # (Auto) 1.0 Thou/mm3 (1.0-4.8); Lymphocytes % (Auto) 17 % (10-50); Mean Corpuscular HGB Conc 32.4 g/dl (31.0-37.0); Mean Corpuscular Hemoglobin 26.4 pg (25.0-35.0); Mean Corpuscular Volume 81 fL (80-100); Monocytes # (Auto) 0.4 Thou/mm3 (0.0-0.8); Monocytes % (Auto) 7 % (0-12); Neutrophils # (Auto) 4.3 Thou/mm3 (1.8-7.7); Neutrophils % (Auto) 73 % (37-80); Nucleated Red Blood Cell # 0.00 Thou/mm3 (0.00-0.00); Nucleated Red Blood Cell % 0 /100 WBC (0); Platelet Count 232 Thou/mm3 (140-440); RDW Standard Deviation 55.5 fL (36.4-46.3); Red Blood Count 4.51 Miln/mm3 (4.00-5.20); White Blood Count 6.0 Thou/mm3 (3.6-11.0)
[2025-09-03 16:27] LABS: HCG,Qualitative Serum Negative
[2025-09-03 16:31] LABS: Alanine Aminotransferase 28 U/L (10-49); Albumin, Serum 4.6 gm/dL (3.5-5.0); Albumin/Globulin Ratio 2.4 (1.2-2.2); Alkaline Phosphatase 59 U/L (46-116); Anion Gap 9 (7-16); Aspartate Amino Transferase 24 U/L (0-34); BUN/Creatinine Ratio 25 Ratio (12-20); Bilirubin,Total 0.3 mg/dL (0.3-1.2); Blood Urea Nitrogen 15 mg/dL (9-23); Calcium 9.9 mg/dL (8.3-10.6); Calcium (Corrected) 9.9 mg/dL (8.5-10.1); Carbon Dioxide 28.6 mMol/L (20.0-31.0); Carcinoembryonic Antigen 20.2 ng/mL (0.0-5.0); Chloride 103 mMol/L (98-107); Creatinine (Component) 0.6 mg/dL (0.6-1.3); Globulin 1.9 gm/dL (2.3-3.5); Glucose 154 mg/dL (74-106); Osmolality,Calculated 285 (275-295); Potassium 3.7 mMol/L (3.4-5.1); Sodium 141 mMol/L (136-145); Total Protein 6.5 gm/dL (5.7-8.2); eGFR > 60 See Note
[2025-09-03 17:00] LABS: Bilirubin,Urine Negative (Negative); Blood,Urine Negative (Negative); Clarity,Urine Clear (Clear/Hazy); Color,Urine Colorless (Lt Yel-Yel); Glucose, Urine Negative (Negative); Ketones,Urine Negative (Negative); Leukocyte Esterase,Urine Positive (Negative); Nitrite,Urine Negative (Negative); PH,Urine 7.0 (5.0-7.0); Protein,Urine Negative (Neg - Trace); RBC,Urine < 1 /hpf (0-3); Specific Gravity,Urine 1.004 (1.001-1.035); Squamous Epithelial Cell,Urine 2 /hpf (0-5); Urobilinogen,Urine Negative mg/dL (0.0-1.0); WBC,Urine 2 /hpf (0-5)
== END 2025-09-16 23:59 | disposition home or self-care (01) ==
LOC: SCTC 09:26
PROVIDERS: PCP Physician Assistant; Referring Provider Physician Assistant; Visit Provider Internal Medicine Hematology & Oncology
DX: Z51.11 Encounter for antineoplastic chemotherapy (principal); C18.7 Malignant neoplasm of sigmoid colon; C78.7 Secondary malignant neoplasm of liver and intrahepatic bile duct; Z90.49 Acquired absence of other specified parts of digestive tract; Z93.3 Colostomy status
CPT/HCPCS: 36591; 80053; 81001; 82378; 84703; 85025; 96367; 96368; 96375; 96411; 96413; 96415; 96416; 96417; A4216; J0461; J0640; J1100; J1434; J1642; J2405; J3490; J7040; J7050; J7060; J9190; J9206; Q5126

== ENCOUNTER → 2025-10-05 | Outpatient (CLI) | payer MEDICAID, SELFPAY ==
[2025-10-04 16:57] LABS: HCG Qualitative,Urine Negative
--- NOTE | 2025-10-05 14:00 | XR_ITS ---
Examination: CT chest with intravenous contrast CT abdomen with intravenous contrast CT pelvis with intravenous contrast CT chest without intravenous contrast CT abdomen without intravenous contrast CT pelvis without intravenous contrast 2-D coronal and sagittal reconstructions Time of exam: October 05, 2025, 1549 hours, comparison PET/CT scan May 18, 2025, MRI abdomen December 21, 2024, PET/CT scan November 16, 2024 INDICATIONS: Diagnosis malignant neoplasm of the rectosigmoid, restaging post treatment, anterior right lobe liver lesion 18.8 mm on MRI abdomen December 21, 2024, progression of pulmonary nodular metastatic disease on PET/CT scan May 18, 2025 compared with November 16, 2024, PET/CT scan May 18, 2025 30 mm hypermetabolic right lobe liver lesion CTDI: vol (mGy) : 10.5 DLP: (mGycm): 224 Technique: Multiple axial images of the chest, abdomen and pelvis with intravenous contrast, 3.0 mm slice thickness. Images obtained post intravenous injection Isovue 370 60 cc. 2-D sagittal and coronal reconstructions. Low dose protocols were performed. One or more of the following dose reduction techniques were used; automated exposure control, adjustment of the mA and/or KV according to patient size, use of iterative reconstruction technique. Findings: Again noted pulmonary nodular metastatic disease Increase in size of all pulmonary nodules, for instance transverse dimension upper lobe pulmonary nodule measures 24 mm compared to 18 mm on PET/CT scan November 16, 2024 New subcentimeter pulmonary nodules, miliary nodular metastatic disease pattern currently The previously commented upon right lobe liver lesion is not clearly depicted on this study Surgical clips anterior right lobe of the liver No pancreatic or adrenal mass No hydronephrosis No interval lymphadenopathy in the abdomen or pelvis compared to the PET/CT scan Localized weakening of the anterior pelvic wall No pelvic mass Urinary bladder intact IMPRESSION: Marked progression of pulmonary nodular metastatic disease compared to the PET/CT scan May 18, 2025 The previously noted liver lesion in the right lobe of the liver is not clearly depicted on the current study, suggest repeat MRI abdomen pre and postcontrast to compare with the December 21, 2024 exam
== END | disposition home or self-care (01) ==
LOC: SCAT 14:06
PROVIDERS: PCP Physician Assistant; Referring Provider Internal Medicine Hematology & Oncology; Visit Provider Internal Medicine Hematology & Oncology
DX: C78.00 Secondary malignant neoplasm of unspecified lung (principal); C19 Malignant neoplasm of rectosigmoid junction; Z32.00 Encounter for pregnancy test, result unknown
CPT/HCPCS: 71270; 74178; 81025; A4649; Q9967

== ENCOUNTER 2025-10-10 09:55 | Outpatient (RCR) | payer MEDICAID, SELFPAY ==
[2025-09-21 11:27] LABS: Collection Type, Urine Voided
[2025-09-21 11:32] LABS: Basophils # (Auto) 0.1 Thou/mm3 (0.0-0.2); Basophils % (Auto) 1 % (0-2.5); Eosinophils # (Auto) 0.1 Thou/mm3 (0.0-0.5); Eosinophils % (Auto) 3 % (0-10); Hematocrit 36.9 % (36.0-46.0); Hemoglobin 11.7 g/dL (12.0-16.0); Immature Granulocytes Auto 0.01 Thou/mm3 (0.00-0.00); Lymphocytes # (Auto) 1.1 Thou/mm3 (1.0-4.8); Lymphocytes % (Auto) 29 % (10-50); Mean Corpuscular HGB Conc 31.7 g/dl (31.0-37.0); Mean Corpuscular Hemoglobin 26.5 pg (25.0-35.0); Mean Corpuscular Volume 84 fL (80-100); Monocytes # (Auto) 0.5 Thou/mm3 (0.0-0.8); Monocytes % (Auto) 15 % (0-12); Neutrophils # (Auto) 1.9 Thou/mm3 (1.8-7.7); Neutrophils % (Auto) 52 % (37-80); Nucleated Red Blood Cell # 0.00 Thou/mm3 (0.00-0.00); Nucleated Red Blood Cell % 0 /100 WBC (0); Platelet Count 228 Thou/mm3 (140-440); RDW Standard Deviation 56.5 fL (36.4-46.3); Red Blood Count 4.42 Miln/mm3 (4.00-5.20); White Blood Count 3.7 Thou/mm3 (3.6-11.0)
[2025-09-21 11:35] LABS: Bilirubin,Urine Negative (Negative); Blood,Urine Negative (Negative); Clarity,Urine Clear (Clear/Hazy); Color,Urine Lt-Yellow (Lt Yel-Yel); Glucose, Urine Negative (Negative); Ketones,Urine Negative (Negative); Leukocyte Esterase,Urine Negative (Negative); Nitrite,Urine Negative (Negative); PH,Urine 5.0 (5.0-7.0); Protein,Urine Negative (Neg - Trace); RBC,Urine < 1 /hpf (0-3); Specific Gravity,Urine 1.019 (1.001-1.035); Squamous Epithelial Cell,Urine 1 /hpf (0-5); Urobilinogen,Urine Negative mg/dL (0.0-1.0); WBC,Urine < 1 /hpf (0-5)
[2025-09-21 11:46] LABS: HCG,Qualitative Serum Negative
[2025-09-21 11:54] LABS: Alanine Aminotransferase 23 U/L (10-49); Albumin, Serum 4.6 gm/dL (3.5-5.0); Albumin/Globulin Ratio 1.8 (1.2-2.2); Alkaline Phosphatase 71 U/L (46-116); Anion Gap 10 (7-16); Aspartate Amino Transferase 26 U/L (0-34); BUN/Creatinine Ratio 20 Ratio (12-20); Bilirubin,Total 0.2 mg/dL (0.3-1.2); Blood Urea Nitrogen 14 mg/dL (9-23); Calcium 9.6 mg/dL (8.3-10.6); Calcium (Corrected) 9.6 mg/dL (8.5-10.1); Carbon Dioxide 26.0 mMol/L (20.0-31.0); Chloride 105 mMol/L (98-107); Creatinine (Component) 0.7 mg/dL (0.6-1.3); Globulin 2.5 gm/dL (2.3-3.5); Glucose 116 mg/dL (74-106); Osmolality,Calculated 282 (275-295); Potassium 3.8 mMol/L (3.4-5.1); Sodium 141 mMol/L (136-145); Total Protein 7.1 gm/dL (5.7-8.2); eGFR > 60 See Note
[2025-09-21 11:55] LABS: Carcinoembryonic Antigen 21.2 ng/mL (0.0-5.0)
[2025-10-05 11:21] LABS: Collection Type, Urine Voided
[2025-10-05 11:26] LABS: Basophils # (Auto) 0.0 Thou/mm3 (0.0-0.2); Basophils % (Auto) 1 % (0-2.5); Eosinophils # (Auto) 0.1 Thou/mm3 (0.0-0.5); Eosinophils % (Auto) 2 % (0-10); Hematocrit 36.2 % (36.0-46.0); Hemoglobin 11.8 g/dL (12.0-16.0); Immature Granulocytes Auto 0.02 Thou/mm3 (0.00-0.00); Lymphocytes # (Auto) 1.1 Thou/mm3 (1.0-4.8); Lymphocytes % (Auto) 26 % (10-50); Mean Corpuscular HGB Conc 32.6 g/dl (31.0-37.0); Mean Corpuscular Hemoglobin 27.4 pg (25.0-35.0); Mean Corpuscular Volume 84 fL (80-100); Monocytes # (Auto) 0.6 Thou/mm3 (0.0-0.8); Monocytes % (Auto) 14 % (0-12); Neutrophils # (Auto) 2.2 Thou/mm3 (1.8-7.7); Neutrophils % (Auto) 56 % (37-80); Nucleated Red Blood Cell # 0.00 Thou/mm3 (0.00-0.00); Nucleated Red Blood Cell % 0 /100 WBC (0); Platelet Count 268 Thou/mm3 (140-440); RDW Standard Deviation 53.8 fL (36.4-46.3); Red Blood Count 4.30 Miln/mm3 (4.00-5.20); White Blood Count 4.0 Thou/mm3 (3.6-11.0)
[2025-10-05 12:05] LABS: Alanine Aminotransferase 21 U/L (10-49); Albumin, Serum 4.5 gm/dL (3.5-5.0); Albumin/Globulin Ratio 1.8 (1.2-2.2); Alkaline Phosphatase 50 U/L (46-116); Anion Gap 13 (7-16); Aspartate Amino Transferase 22 U/L (0-34); BUN/Creatinine Ratio 23 Ratio (12-20); Bilirubin,Total 0.3 mg/dL (0.3-1.2); Blood Urea Nitrogen 14 mg/dL (9-23); Calcium 9.4 mg/dL (8.3-10.6); Calcium (Corrected) 9.4 mg/dL (8.5-10.1); Carbon Dioxide 24.1 mMol/L (20.0-31.0); Chloride 106 mMol/L (98-107); Creatinine (Component) 0.6 mg/dL (0.6-1.3); Globulin 2.5 gm/dL (2.3-3.5); Glucose 103 mg/dL (74-106); Osmolality,Calculated 285 (275-295); Potassium 3.8 mMol/L (3.4-5.1); Sodium 143 mMol/L (136-145); Total Protein 7.0 gm/dL (5.7-8.2); eGFR > 60 See Note
[2025-10-05 12:06] LABS: Carcinoembryonic Antigen 25.9 ng/mL (0.0-5.0)
[2025-10-05 12:19] LABS: HCG,Qualitative Serum Negative
[2025-10-05 12:20] LABS: Bilirubin,Urine Negative (Negative); Blood,Urine Trace (Negative); Glucose, Urine Negative (Negative); Ketones,Urine Negative (Negative); Leukocyte Esterase,Urine Positive (Negative); Nitrite,Urine Negative (Negative); PH,Urine 5.0 (5.0-7.0); Protein,Urine Negative (Neg - Trace); RBC,Urine 1 /hpf (0-3); Specific Gravity,Urine 1.023 (1.001-1.035); Squamous Epithelial Cell,Urine 1 /hpf (0-5); Urobilinogen,Urine Negative mg/dL (0.0-1.0); WBC,Urine 4 /hpf (0-5)
[2025-10-05 12:22] LABS: Clarity,Urine Cloudy (Clear/Hazy); Color,Urine Drk Yellow (Lt Yel-Yel)
== END 2025-10-17 23:59 | disposition home or self-care (01) ==
LOC: SCTC 09:55
PROVIDERS: PCP Physician Assistant; Referring Provider Physician Assistant; Visit Provider Internal Medicine Hematology & Oncology
DX: Z51.11 Encounter for antineoplastic chemotherapy (principal); C19 Malignant neoplasm of rectosigmoid junction; C78.02 Secondary malignant neoplasm of left lung; C78.01 Secondary malignant neoplasm of right lung; C78.7 Secondary malignant neoplasm of liver and intrahepatic bile duct; Z90.49 Acquired absence of other specified parts of digestive tract
CPT/HCPCS: 36591; 80053; 81001; 82378; 84703; 85025; 96367; 96368; 96375; 96411; 96413; 96415; 96416; 96417; A4216; J0461; J0640; J1100; J1434; J1642; J2405; J3490; J7040; J7050; J7060; J9190; J9206; Q5126; A9270